=== PATIENT | female | born 1965 | race Caucasian/White ===

== ENCOUNTER 2018-06-17 01:30 | Emergency (ER) | payer OTHER, SELFPAY ==
[2018-06-17 01:32] VITALS: BP 141/95; PULSE 115; RESP 22; TEMP 36.4; O2SAT 95; BMI 24.5
--- NOTE | 2018-06-17 01:33 | CT_ITS ---
STUDY: CT FACIAL BONES WITHOUT CONTRAST REASON FOR EXAM: Female, 53 years old. Patient fell. Laceration of the nose. RADIATION DOSAGE (If Supplied By Facility): CTDIvol = ( 29.38 ) mGy, DLP = ( 562.15 ) mGycm TECHNIQUE: The patient was scanned in a multi detector CT scanner. Sagittal and coronal images were reconstructed. Individualized dose optimization techniques were used for this CT. COMPARISON: None. FINDINGS: The nasal septum is midline. The frontal processes of the maxilla are intact. The nasal bones are normal. The zygomatic arches, pterygoid plates and mandibles are normal. The temporomandibular joints are normal The orbits are normal. There is a left-sided florence bullosa. Retention cyst in the right maxillary sinus. The soft tissues of the face are normal. . CT/Sinus/Facial Bone IMPRESSION: A small retention cyst in the right maxillary sinus. A left-sided florence bullosa. No acute fractures of the facial bones. The nasal bones in particular are not fractured Electronically Signed: Renard Randolph MD at 2:08 EDT Tel , Service support ,
[2018-06-17] MEDS: Diphth,Pertuss(Acell),Tet Vac 0.5 ML Vial IM (01:55)
--- NOTE | 2018-06-17 02:57 | ED.DCSUM_ITS ---
- ER Visit Summary Date of Service: 06/17/18 Chief Complaint: Nose injury History of Present Illness: The patient is a 53 F who presents with a nasal injury. She tripped and fell in the garage. She had a mango in a garage. She injured her nose. Her tetanus is unknown. Physical Examination: Vital signs reviewed. HEENT exam reveals a complete a avulsion of the tip of the nose. It is hanging by just the skin of the septum. There is also a 1 cm V-shaped laceration at the bridge of the nose. Nasal area is slightly tender. Her pupils are equal round and reactive to light. Her neck is nontender. Her neurologic exam is normal. She does appear to be slightly intoxicated with alcohol. Test Results: CT scan of the face reveals no fractures Emergency Department Course and Treatment: Patient had a laceration repair of these areas. The V-shaped laceration was repaired with 3 6-0 sutures. The tip of the nose was attached to its anatomic position using 9 6-0 sutures. There is still appear to be some blood flow to this area. The patient and her family were informed that the tip of the nose may not receive blood flow and that this may not be viable. The patient will need to be followed up with plastic virgen rgery. I will give her Dr. Grant has a follow-up. She will ice this area and will follow-up as described Treatment Plan: [] Disposition: Discharge Impression: Nasal tip avulsion, nasal laceration, laceration repair by ED physician This note was generated with [employer] dictation software. It may contain incorrect words, spelling, and punctuation that were not noted in review of the chart prior to signing ED Disposition - Plan for ED Patient: Chief Complaint: Fall Referrals: Denise Renee MD [Primary Care Provider] -
--- NOTE | 2018-06-17 02:57 | ED.DEP ---
ED Disposition - Plan for ED Patient: Disposition: Home or Assisted Living Chief Complaint: Fall Instructions: ED Mechanical Fall, ED Laceration All Referrals: Denise Renee MD [Primary Care Provider] - David Grant MD [STAFF PHYSICIAN] -
== END 2018-06-17 03:12 | disposition home or self-care (01) ==
PROVIDERS: Emergency Provider Emergency Medicine; Family Provider Family Medicine; PCP Family Medicine
DX: S01.20XA Unspecified open wound of nose, initial encounter (principal); S01.21XA Laceration without foreign body of nose, initial encounter; W01.0XXA Fall on same level from slipping, tripping and stumbling without subsequent striking against object, initial encounter; Y93.9 Activity, unspecified; Y92.008 Other place in unspecified non-institutional (private) residence as the place of occurrence of the external cause
CPT/HCPCS: 12011; 70486; 90471; 90715; 99283

== ENCOUNTER 2018-10-07 13:28 | Emergency (ER) | payer OTHER, SELFPAY ==
[2018-10-07 13:29] VITALS: BP 164/96; PULSE 106; RESP 16; TEMP 36.7; O2SAT 97; BMI 23.3
--- NOTE | 2018-10-07 13:43 | EKG12_ITS ---
Test Reason : CHEST/OTHERR Blood Pressure : / mmHG Vent. Rate : 077 BPM Atrial Rate : 077 BPM P-R Int : 124 ms QRS Dur : 078 ms QT Int : 374 ms P-R-T Axes : 003 027 016 degrees QTc Int : 423 ms Normal sinus rhythm Normal ECG Confirmed by BRIA CHOI, JOSEFA ([id number]), technical editor NIRALI MCKINNON ([id number]) on 10/09/2018 9:21:37 AM Referred By: SARAH Confirmed By:JOSEFA FRASER MD
--- NOTE | 2018-10-07 13:43 | CT_ITS ---
STUDY: CTA CHEST REASON FOR EXAM: Female, 53 years old. Right-sided chest wall pain for 2 days RADIATION DOSAGE (If Supplied By Facility): CTDIvol = ( 8.67 ) mGy, DLP = ( 342.88 ) mGycm TECHNIQUE: The examination was performed with the intravenous administration of 100 ml of Isovue 370 contrast material. Post-processing of the angiographic images was performed, with multiplanar reformation and 3D reconstruction. Individualized dose optimization techniques were used for this CT. COMPARISON: None. FINDINGS: There is limited enhancement of the main pulmonary artery and right and left pulmonary arteries. There is limited enhancement of the bilateral peripheral pulmonary arteries. There is no demonstrated pulmonary embolism. Normal thoracic aorta and visualized great vessels. There is no demonstrated aortic dissection. Normal heart and pericardium. Normal mediastinum. Normal hilar regions. Normal visualized trachea and bronchi. The lungs are well expanded. Normal pulmonary parenchyma. Normal pleura. Normal chest wall structures. Normal osseous structures. Normal visualized upper abdomen. CT/CTA Chest W/WO Contrast IMPRESSION: 1. Limited due to suboptimal pulmonary artery enhancement. No obvious pulmonary embolism is seen. Electronically Signed: Mynor Kinney MD at 15:21 EST , Service support ,
--- NOTE | 2018-10-07 13:46 | NURSING ---
NO OLD EKGS
--- NOTE | 2018-10-07 14:00 | ED.VISSUMM ---
- ER Visit Summary Date of Service: 10/07/18 Chief Complaint: Right-sided chest pain History of Present Illness: The patient is a 53 F presenting with right-sided chest pain. She states this started yesterday. It was intermittent yesterday. Today it has been more constant. Pain is worsened with taking deep breaths. She denies injury. Denies shortness of breath. Denies recent illness or cough. Denies fever. She tried Excedrin at home with no relief. She denies PE/DVT risk factors. Denies coronary disease risk factors. Physical Examination: Vitals are stable. Patient is afebrile. Alert no acute distress. HEENT exam is unremarkable. Neck is supple. Lungs are clear and equal bilaterally. Heart is regular rate and rhythm. Abdomen is soft nontender nondistended. Extremities are unremarkable. Skin is warm and dry. No rash No focal neurologic deficit. Remainder of exam is unremarkable. Emergency Department Course and Treatment: EKG is sinus rate of 77 with no acute ischemic changes. CBC, chemistries unremarkable other than creatinine 1.26. Troponin is negative. She was given IV fluids. CTA chest is obtained and is pending, this will be checked by the oncoming physician. Disposition: Pending Impression: Right-sided chest pain This note was generated with [employer] dictation software. It may contain incorrect words, spelling, and punctuation that were not noted in review of the chart prior to signing ED Disposition - Plan for ED Patient: Referrals: Denise Renee MD [Primary Care Provider] -
[2018-10-07 14:15] LABS: Absolute Lymphocyte Count 1.61 X10^3/ul (0.83-4.51); Absolute Neutrophil Count 4.8 X10^3/uL (2.0-7.7); Basophil# 0.03 X10^3/uL; Basophil% 0.4 % (0-1); Eosinophil# 0.15 X10^3/uL; Eosinophils% 2.1 % (0-5); Hematocrit 40.8 % (37-47); Hemoglobin 13.7 g/dl (12.0-15.0); Lymphocyte # 1.61 X10^3/ul (4.0); Lymphocyte % 22.7 % (19-41); Mean Corp Hgb Conc 33.6 g/gl (32-36); Mean Corpuscular Hgb 32.5 pg (27.0-32.0); Mean Corpuscular Volume 96.9 fL (81-99); Mean Platelet Vol. 10.4 fl (6.2-12.0); Monocyte# 0.46 X10^3/uL; Monocyte% 6.5 % (0-10); Neutrophil # 4.83 X10^3/uL (2.7-7.7); Neutrophil % 68.2 % (47-70); Platelet Count 224 K/mm3 (150-450); RBC Distribution Width CV 12.4 % (11.6-14.6); RBC Distribution Width SD 42.9 fl (35.1-43.9); Red Blood Count 4.21 M/mm3 (4.2-5.4); White Blood Count 7.1 K/mm3 (4.4-11.0)
[2018-10-07 14:16] LABS: POSITIVE COUNT NO; POSITIVE DIFFERENTIAL NO; POSITIVE MORPHOLOGY NO
[2018-10-07 14:34] LABS: Anion Gap 9 (5-15); BUN 13 mg/dL (7-18); BUN/Creat Ratio 10.3 RATIO (10-20); Calcium,Total 8.8 mg/dL (8.5-10.1); Chloride 106 mmol/L (98-107); Creatinine, Serum 1.26 mg/dL (0.55-1.02); EST Glomerular Filtration Rate 47 mL/min (>60); Est Glom Filt Rate - Afr Amer 57 mL/min (>60); Estimated Creatinine Clearance 47.53 ml/min; Glucose 127 mg/dL (74-106); Potassium 3.7 mmol/L (3.5-5.1); Sodium Level 143 mmol/L (136-145)
[2018-10-07] MEDS: 0.9% Normal Saline 1,000 ML 999 ML IV (15:11)
[2018-10-07 15:45] VITALS: BP 141/87; PULSE 69; RESP 11; O2SAT 98
--- NOTE | 2018-10-07 17:00 | EKG12_ITS ---
Test Reason : CP Blood Pressure : / mmHG Vent. Rate : 070 BPM Atrial Rate : 070 BPM P-R Int : 128 ms QRS Dur : 074 ms QT Int : 396 ms P-R-T Axes : 006 024 024 degrees QTc Int : 427 ms Normal sinus rhythm Normal ECG Confirmed by JOSEFA FRASER MD ([id number]), editor producer NIRALI MCKINNON ([id number]) on 10/09/2018 9:21:55 AM Referred By: ADAM Confirmed By:JOSEFA FRASER MD
[2018-10-07 17:04] VITALS: BP 124/91; PULSE 72; RESP 13; O2SAT 96
--- NOTE | 2018-10-07 18:07 | ED.DEP ---
ED Disposition - Plan for ED Patient: Disposition: Home or Assisted Living Instructions: ED Chest Pain Atypical Unkn Cause Referrals: Denise Renee MD [Primary Care Provider] - 3-5 Days if not improving
[2018-10-07 18:34] VITALS: BP 128/82; PULSE 72; RESP 13; O2SAT 95
== END 2018-10-07 18:36 | disposition home or self-care (01) ==
PROVIDERS: Emergency Provider Emergency Medicine; Family Provider Family Medicine; PCP Family Medicine
DX: R07.89 Other chest pain (principal); Z72.0 Tobacco use
CPT/HCPCS: 71275; 80048; 84484; 85025; 93005; 96360; 96361; 99283; J7030; Q9967; A4216

== ENCOUNTER 2018-12-30 13:35 | Emergency (ER) | payer OTHER, SELFPAY ==
[2018-10-26 13:14] VITALS: BMI 23.3
[2018-12-30 13:36] VITALS: BP 130/86; PULSE 90; RESP 16; TEMP 36; O2SAT 97; BMI 24.1
--- NOTE | 2018-12-30 14:12 | RAD_ITS ---
STUDY: X-RAY - LEFT KNEE REASON FOR EXAM: Female, 53 years old. Pain TECHNIQUE: 4 view(s) of the knee. COMPARISON: None. FINDINGS: There is no evidence of fracture or dislocation. There are no significant degenerative changes. There are no radiodense foreign bodies. RAD/Knee 4 or More Views IMPRESSION: No fracture or dislocation. Electronically Signed: Wilton Middleton, at 14:50 EDT Tel , Service support ,
--- NOTE | 2018-12-30 14:15 | ED.DCSUM_ITS ---
- ER Visit Summary Date of Service: 12/30/18 Chief Complaint: Left knee injury History of Present Illness: The patient is a 53 F presenting with left knee injury. This occurred last night. Patient states she stepped in a hole and twisted her left knee. She did not hit her head or lose consciousness. She complains of left knee pain today. She has an abrasion to her left thumb. Her tetanus is up-to-date. No other injuries. She tried a leftover Vicodin last night for pain. Physical Examination: Vitals are stable. Patient is afebrile. Alert no acute distress. HEENT exam is unremarkable. Neck is nontender Lungs are clear and equal bilaterally. Heart is regular rate and rhythm. Abdomen is soft nontender nondistended. Extremities left medial knee tenderness with painful range of motion. Extensor mechanism intact. Normal distal pulses. Mild abrasion distal left thumb Skin is warm and dry. No focal neurologic deficit. Remainder of exam is unremarkable. Emergency Department Course and Treatment: Patient was given [place] x1. Left knee x-ray shows no acute process. Patient is advised to ice and elevate. She has crutches that she will use. She is advised to follow-up with her primary care physician. Advised return to ED for worsening complaints. Disposition: Discharge home Impression: Left knee sprain status post fall This note was generated with [employer] dictation software. It may contain incorrect words, spelling, and punctuation that were not noted in review of the chart prior to signing ED Disposition - Plan for ED Patient: Instructions: ED Sprain Knee Prescriptions: Hydrocodone Bitart/Apap 5-325 [[place] 5MG-325MG] 1 tablet PO Q6H PRN PRN 3 Days #6 tablet PRN Reason: Pain Referrals: Denise Renee MD [Primary Care Provider] -
[2018-12-30] MEDS: HYDROcodone Bitartrate/Apap 5/325 Tablet PO (14:29)
--- NOTE | 2018-12-30 15:11 | ED.DEP ---
ED Disposition - Plan for ED Patient: Instructions: ED Sprain Knee Prescriptions: Hydrocodone Bitart/Apap 5-325 [[place] 5MG-325MG] 1 tablet PO Q6H PRN PRN 3 Days #6 tablet PRN Reason: Pain Referrals: Denise Renee MD [Primary Care Provider] -
== END 2018-12-30 15:13 | disposition home or self-care (01) ==
LOC: ED 14:23
PROVIDERS: Emergency Provider Emergency Medicine; Family Provider Family Medicine; PCP Family Medicine
DX: S83.92XA Sprain of unspecified site of left knee, initial encounter (principal); X50.1XXA Overexertion from prolonged static or awkward postures, initial encounter; Y93.9 Activity, unspecified; Y92.9 Unspecified place or not applicable
CPT/HCPCS: 73564; 99283

== ENCOUNTER → 2019-01-07 15:21 | Outpatient (CLI) | payer OTHER, SELFPAY ==
[2018-12-30 13:36] VITALS: BMI 24.1
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
== END ==
PROVIDERS: Family Provider Family Medicine; PCP Family Medicine; Referring Provider Nurse Practitioner Family; Visit Provider Nurse Practitioner Family
DX: M25.511 Pain in right shoulder (principal)
CPT/HCPCS: 73030

== ENCOUNTER → 2019-04-08 13:14 | Outpatient (CLI) | payer OTHER, SELFPAY ==
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
== END ==
PROVIDERS: Family Provider Family Medicine; PCP Family Medicine; Referring Provider Orthopaedic Surgery; Visit Provider Orthopaedic Surgery
DX: S83.412A Sprain of medial collateral ligament of left knee, initial encounter (principal)
CPT/HCPCS: 73721

== ENCOUNTER → 2019-06-19 15:24 | Outpatient (CLI) | payer OTHER, SELFPAY ==
--- NOTE | 2019-06-19 15:27 | MRI_ITS ---
STUDY: MRI RIGHT SHOULDER REASON FOR EXAM: Female, 54 years old. Pain. Osteoarthritis. TECHNIQUE: Standardized fat and water weighted pulse sequences were obtained in all 3 orthogonal planes. COMPARISON: None. FINDINGS: There is supraspinatus tendinosis with tendon thickening, with partial intrasubstance tendon tear, series 5 images 08/09 and 1320. Tendinosis of the infraspinatus with partial bursal surface distal tendon tear, series 4 image 1020. Normal subscapularis tendon. Normal teres minor tendon. Normal supraspinatus muscle. Normal infraspinatus muscle. Normal subscapularis muscle. Normal teres minor muscle. Normal glenohumeral articulation. Normal humeral head and visualized proximal humerus. Normal biceps labral complex. Normal intracapsular long biceps tendon. Normal labrum. Normal capsulo- ligamentous complex. Normal rotator interval. There is hypertrophic osteoarthritis of the acromioclavicular articulation with impingement upon the musculotendinous junction of the supraspinatus muscle. There is a Type II morphology (curved), with a neutral orientation. There is moderate fluid distention of the subacromial bursa, consistent with moderate subacromial-subdeltoid bursitis. Normal visualized coracohumeral and coracoacromial ligaments. Normal quadrilateral space. Normal axillary space. Normal deltoid muscle. Normal trapezius muscle. MRI/Upper Ext Joint Only(Routine) IMPRESSION: Tendinosis with partial tear of the supraspinatus and infraspinatus. No full-thickness rotator cuff tear. Acromioclavicular spurring with impingement. Subacromial subdeltoid bursitis. Electronically Signed: Chon Frost MD at 16:51 EDT , Service support ,
== END ==
PROVIDERS: Family Provider Family Medicine; PCP Family Medicine; Referring Provider Physician Assistant; Visit Provider Physician Assistant
DX: M19.011 Primary osteoarthritis, right shoulder (principal)
CPT/HCPCS: 73221

== ENCOUNTER → 2020-05-08 12:08 | Outpatient (CLI) | payer OTHER, SELFPAY ==
--- NOTE | 2020-05-08 12:20 | BI_ITS ---
MAMMOGRAPHY - BILATERAL SCREENING REASON FOR EXAM: Female, 55 years old. Routine annual screening examination. PERTINENT HISTORY: Non-contributory. Remote right stereotactic breast biopsy. TECHNIQUE: Digital bilateral breast jerrell (3D mammographic acquisition) in the CC and MLO projections. 2-D mediolateral oblique (MLO) and craniocaudad (CC) views of both breasts were obtained. CAD: Full Field Digital Mammography with Computer Added Detection was performed. COMPARISON: Comparison is made with prior study dated 05/30/2013 and 03/29/2017. FINDINGS: Breast Composition: The breasts are heterogeneously dense, which may obscure small masses. There are no dominant masses or suspicious calcifications. A tissue clip marker is once again seen in the upper central portion of the right breast. No other significant abnormalities are identified. There has been no significant change since the prior study. BI/SCREEN MAMM (CAD) W/JERRELL BILAT IMPRESSION: Stable bilateral screening mammogram. Yearly follow-up mammogram recommended. (A) ASSESSMENT CATEGORY: BIRADS Category 2: Benign. A letter regarding these results will be sent to the patient by the facility within 30 days. Approximately 10% of breast cancers are not detected by mammography. A normal mammogram should not delay biopsy of a clinically suspicious abnormality. [id number] Electronically Signed: Geovanni Arias, at 13:25 EDT , Service support ,
== END ==
PROVIDERS: PCP Family Medicine; Referring Provider Family Medicine; Visit Provider Family Medicine
DX: Z12.31 Encounter for screening mammogram for malignant neoplasm of breast (principal)
CPT/HCPCS: 77063; 77067

== ENCOUNTER → 2020-06-22 14:52 | Outpatient (CLI) | payer OTHER, SELFPAY ==
[2020-06-29 16:47] LABS: HPV APTIMA, High Risk Negative (Negative); HPV Reflexed? YES, CHARGE PATIENT
== END ==
PROVIDERS: PCP Family Medicine; Visit Provider Student in an Organized Health Care Education/Training Program
DX: Z12.4 Encounter for screening for malignant neoplasm of cervix (principal)
CPT/HCPCS: 87624; 88175; G0145

== ENCOUNTER 2020-10-15 15:28 | Emergency (ER) | payer OTHER, SELFPAY ==
[2020-10-15 15:28] VITALS: BP 130/92; PULSE 78; RESP 16; TEMP 36.6; O2SAT 98; BMI 26.1
--- NOTE | 2020-10-15 15:50 | ED.VIS.FALL ---
History of Present Illness Chief Complaint: Fall Informant: Patient Occurred: Yesterday Mechanism/Context: Trip - Over dog backwards into edge of kitchen counter at home Location: Right side/ribs Quality of Pain: Aching Current Severity: Moderate Maximum Severity: Moderate Worsened by: Movement, palpation, deep inspiration Relieved by: Remaining still and breathing easy Associated Symptoms: - - Normal urination without hematuria. Negative for: Parasthesias, Weakness, Loss of function, Inability to ambulate, Loss of consciousness, Amnesia Narrative: Patient injured her ribs as above accidentally last night. Pain is persistent and worse today. She denies any yadira dyspnea or any other injuries. Takes no anticoagulants. Took some ibuprofen earlier with little relief. - Past Medical History (1) Anxiety Status: Chronic (2) Depression Status: Chronic Past Medical History - Allergies and Home Meds Allergies/Adverse Reactions: Allergies No Known Allergies Allergy (Verified 10/15/20 15:31) Primary Care Physician: Denise Renee MD [Primary Care Provider] - As Needed Lives: Spouse/ Significant Other Smoking Status: Current every day smoker Review of Systems General: Denies: Chills, Fever, Sweats Eyes: Denies: Visual changes - bilaterally, Diplopia ENT: Denies: Rhinorrhea, Sore throat Cardiovascular: Reports: Chest pain - Ribs right side and back. Denies: Palpitations Respiratory: Denies: Dyspnea, Cough, Dyspnea on exertion Gastrointestinal: Denies: Abdominal pain, Nausea, Vomiting, Diarrhea, Melena, Hematochezia Genitourinary: Denies: Dysuria, Hematuria, Frequency Musculoskeletal: Reports: Back pain - Right lateral lower ribs only. Denies: Swelling, Extremity Pain Skin: Denies: Rash, Wounds Neurological: Denies: Headache, Weakness, Numbness Physical Exam Vital Signs/Narrative: Vital Signs Temp Pulse Resp BP Pulse Ox 10/15/20 15:28 98 F 78 16 130/92 H 98 Inital Vital Signs reviewed: Yes General: Well nourished, Well developed, - - Well-appearing in no distress, conversive in full sentences Head: Normocephalic, Atraumatic Eyes: Perrl, EOMI Neck: Nontender, Full ROM Respiratory: No distress, CTA bilaterally, Chest nontender - Including sternum Abdomen: Soft, Nontender, Nondistended, Normal bowel sounds Back: Paraspinal Tenderness - Right posterior and lateral ribs approximately 9-11 without crepitance, subcutaneous emphysema, or flail segment. Negative for: Spinal Tenderness Extremeties: Atraumatic, full range of motion throughout all extremities Skin: Normal color, No rash, No Trauma Neurological: Alert, Oriented x3, Cranial nerves II-XII grossly intact, Normal Strength, Normal Sensation, Normal Gait Psychological: Normal affect, Normal Mood Diagnostic/Tx/Re-eval Clinical Impression(s) from Imaging Studies Ribs w/Chest X-Ray 10/15/20 16:05 IMPRESSION: RIBS: Normal x-ray examination of the ribs. CHEST: Degenerative changes, as described above. No demonstrated acute cardiopulmonary process. Electronically Signed: Hermilo Garcia MD at 16:35 EST , Service support , - Medical Decision Making On my interpretation, 3 view x-ray series of the right ribs and chest show a single nondisplaced rib fracture of #11 without pneumothorax. Patient was given analgesics here as well as a prescription, and appropriate discharge instructions advised not to wrap or bind her chest. I will request nursing to give her an incentive spirometer in addition to the prescription. Follow-up as needed or return if worse. ED Disposition - Plan for ED Patient: Disposition: Home or Assisted Living Diagnosis: Closed fracture of rib of right side Instructions: ED Rib Fracture Prescriptions: traMADol [Ultram] 50 mg PO Q4H PRN PRN 3 Days #18 tab PRN Reason: Pain Transmission Status: Received by [facility] Referrals: Denise Renee MD [Primary Care Provider] - As Needed
[2020-10-15] MEDS: traMADol 50 MG Tablet PO (15:55)
--- NOTE | 2020-10-15 16:05 | RAD_ITS ---
STUDY: X-RAY - UNILATERAL RIBS ( RIGHT ) WITH CHEST REASON FOR EXAM: Female, 55 years old. injury TECHNIQUE - RIBS: 2 view(s) of the ribs. TECHNIQUE - CHEST: Single AP portable view of the chest. COMPARISON: None. FINDINGS - RIBS: Normal visualized ribs without a demonstrated fracture. FINDINGS - CHEST: The lungs are clear and expanded. There is no demonstrated pleural abnormality. Normal size heart. Normal mediastinum and jenny. Normal visualized pulmonary arteries. There is atherosclerotic calcification of the aortic arch with tortuosity. There are diffuse degenerative changes of the visualized thoracic spine. Normal visualized ribs, clavicles, and shoulders. There is no demonstrated abnormality of the visualized soft tissue structures of the upper abdomen. RAD/Ribs Uni Min 3V w/PA Chest IMPRESSION: RIBS: Normal x-ray examination of the ribs. CHEST: Degenerative changes, as described above. No demonstrated acute cardiopulmonary process. Electronically Signed: Hermilo Garcia MD at 16:35 EST , Service support ,
[2020-10-15 16:19] VITALS: PULSE 64; RESP 16; O2SAT 97
== END 2020-10-15 16:32 | disposition home or self-care (01) ==
LOC: ED 16:30
PROVIDERS: Emergency Provider Emergency Medicine; PCP Family Medicine
DX: S22.31XA Fracture of one rib, right side, initial encounter for closed fracture (principal); F17.200 Nicotine dependence, unspecified, uncomplicated; F41.9 Anxiety disorder, unspecified; F32.9 Major depressive disorder, single episode, unspecified; W01.0XXA Fall on same level from slipping, tripping and stumbling without subsequent striking against object, initial encounter
CPT/HCPCS: 71101; 99283

== ENCOUNTER 2020-10-18 11:41 | Emergency (ER) | payer OTHER, SELFPAY ==
[2020-10-18 11:42] VITALS: BP 122/79; PULSE 93; RESP 16; TEMP 36.4; O2SAT 99; BMI 26.5
--- NOTE | 2020-10-18 12:08 | ED.DCSUM_ITS ---
- ER Visit Summary Date of Service: 10/18/20 Chief Complaint: Right rib pain History of Present Illness: The patient is a 55 F who presents with right rib pain that became worse yesterday. Patient states she fell 4 days ago and was seen here at that time. Patient had x-rays done which were negative. Patient was given a prescription for tramadol. Patient states that yesterday she felt a pop in her right rib and her pain became worse again. Patient states the tramadol has not been helping. Patient states her pain is constant aching but sharp with movement. Patient states the pain is better with rest. Patient denies any shortness of breath. Physical Examination: Vital signs are stable. Patient is afebrile. Patient is in no acute distress. Oral mucosa is pink and moist. Neck is supple. Trachea is midline. There is no JVD. Heart was regular rate and rhythm. Lungs are clear and equal bilateral. There is adequate respiratory effort. It was limited due to the pain. Abdomen is soft. Bowel sounds are normal. There is no tenderness. Cranial nerves II through XII are intact. There are no focal motor or sensory deficits noted. Extremities are intact. There is no calf tenderness or edema. Test Results: X-rays of the right ribs were obtained. There are 4 views. On my interpretation, there is no acute fracture. There is no pneumothorax. There is no cardiomegaly. There is no acute cardiopulmonary process. Radiologist also interpreted the x-rays and agrees. Emergency Department Course and Treatment: Patient was given an injection of morphine here. Patient was given a prescription for a short course of [place]. Patient was instructed to take 10-15 deep breaths every hour while awake to prevent atelectasis and pneumonia. Patient was instructed to follow-up with her primary care physician in 5 to 7 days. Patient understood and was agreeable with the plan. All questions were answered. Disposition: Discharge home Impression: Right rib contusion This note was generated with [employer] dictation software. It may contain incorrect words, spelling, and punctuation that were not noted in review of the chart prior to signing ED Disposition - Plan for ED Patient: Disposition: Home or Assisted Living Diagnosis: Contusion of rib on right side Instructions: ED Contusion, Rib Prescriptions: Hydrocodone Bitart/Apap 5-325 [[place] 5MG-325MG] 1 tab PO Q6H PRN PRN 3 Days #10 tab PRN Reason: Pain Prescription Printed Referrals: Denise Renee MD [Primary Care Provider] - 3-5 Days
[2020-10-18] MEDS: Morphine 4 MG/ML Syringe IM (12:25)
--- NOTE | 2020-10-18 12:30 | RAD_ITS ---
STUDY: X-RAY - UNILATERAL RIBS ( RIGHT ) WITH CHEST REASON FOR EXAM: Female, 55 years old. Pain TECHNIQUE - RIBS: 3 view(s) of the ribs. TECHNIQUE - CHEST: Single PA view of the chest. COMPARISON: 10/15/2020 FINDINGS - RIBS: Normal visualized ribs without a demonstrated fracture. FINDINGS - CHEST: The lungs are clear and expanded. There is no demonstrated pleural abnormality. Normal size heart. Normal mediastinum and jenny. Normal visualized pulmonary arteries. Normal visualized aortic arch and descending thoracic aorta. Normal visualized thoracic spine. Normal visualized ribs, clavicles, and shoulders. There is no demonstrated abnormality of the visualized soft tissue structures of the upper abdomen. RAD/Ribs Uni Min 3V w/PA Chest IMPRESSION: RIBS: Normal x-ray examination of the ribs. CHEST: Normal x-ray examination of the chest. Electronically Signed: Low Ramsey MD at 13:14 EST Tel , Service support ,
== END 2020-10-18 13:33 | disposition home or self-care (01) ==
PROVIDERS: Emergency Provider Emergency Medicine; PCP Family Medicine
DX: S20.211A Contusion of right front wall of thorax, initial encounter (principal); F17.200 Nicotine dependence, unspecified, uncomplicated; F41.9 Anxiety disorder, unspecified; F32.9 Major depressive disorder, single episode, unspecified; W19.XXXA Unspecified fall, initial encounter
CPT/HCPCS: 71101; 96372; 99282

== ENCOUNTER → 2021-05-10 09:02 | Outpatient (CLI) | payer OTHER, SELFPAY | PROVIDERS: PCP Family Medicine; Referring Provider Family Medicine; Visit Provider Family Medicine | DX: R68.89 Other general symptoms and signs (principal) | CPT/HCPCS: 87635; U0003 ==

== ENCOUNTER → 2021-05-10 17:09 | Outpatient (CLI) | payer OTHER, SELFPAY ==
--- NOTE | 2021-05-10 17:12 | RAD_ITS ---
STUDY: X-RAY CHEST REASON FOR EXAM: Female, 56 years old. FLU LIKE ILLNESS TECHNIQUE: PA and lateral views of the chest. COMPARISON: None. FINDINGS: The lungs are clear and expanded. There is no demonstrated pleural abnormality. Normal size heart. Normal mediastinum and jenny. Normal visualized pulmonary arteries. Normal visualized aortic arch and descending thoracic aorta. There are diffuse degenerative changes of the visualized thoracic spine. Normal visualized ribs, clavicles, and shoulders. There is no demonstrated abnormality of the visualized soft tissue structures of the upper abdomen. RAD/Chest PA and Lateral IMPRESSION: No acute cardiopulmonary disease. Electronically Signed: Emerald Rothman MD at 2:11 EDT , Service support ,
== END ==
PROVIDERS: PCP Family Medicine; Referring Provider Family Medicine; Visit Provider Family Medicine
DX: R68.89 Other general symptoms and signs (principal)
CPT/HCPCS: 71046

== ENCOUNTER → 2021-05-17 13:44 | Outpatient (CLI) | payer OTHER, SELFPAY ==
[2021-05-17 15:09] LABS: Absolute Lymphocyte Count 2.22 X10^3/uL (0.83-4.51); Absolute Neutrophil Count 3.9 X10^3/uL (2.0-7.7); Basophil# 0.05 X10^3/uL; Basophil% 0.7 % (0-1); Eosinophil# 0.34 X10^3/uL; Eosinophils% 4.9 % (0-5); Hematocrit 42.2 % (37-47); Hemoglobin 13.6 g/dL (12.0-15.0); Lymphocyte # 2.22 X10^3/ul (0.83-4.51); Lymphocyte % 32.1 % (19-41); Mean Corp Hgb Conc 32.2 g/dL (32-36); Mean Corpuscular Hgb 31.1 pg (27.0-32.0); Mean Corpuscular Volume 96.6 fL (81-99); Mean Platelet Vol. 10.3 fl (6.2-12.0); Monocyte# 0.41 X10^3/uL; Monocyte% 5.9 % (0-10); NRBC Flagged by Analyzer 0 % (0-5); Neutrophil # 3.87 X10^3/uL (2.7-7.7); Neutrophil % 56.1 % (47-70); Platelet Count 309 K/mm3 (150-450); RBC Distribution Width CV 12.4 % (11.6-14.6); RBC Distribution Width SD 44.1 fl (35.1-43.9); Red Blood Count 4.37 M/mm3 (4.2-5.4); White Blood Count 6.9 K/mm3 (4.4-11.0)
== END ==
PROVIDERS: PCP Family Medicine; Referring Provider Family Medicine; Visit Provider Family Medicine
DX: R53.83 Other fatigue (principal)
CPT/HCPCS: 36415; 84443; 85025

== ENCOUNTER → 2021-06-23 13:50 | Outpatient (CLI) | payer OTHER, SELFPAY ==
--- NOTE | 2021-06-23 13:52 | ECHOD_ITS ---
Reason For Study: Tachycardia Procedure This was a 2D Doppler, Color Flow transthoracic echocardiogram. The exam was of adequate technical quality. Exam performed in department. Left Ventricle Normal LV size. Left ventricular systolic function is normal. The estimated ejection fraction is 55 %. Transmitral doppler flow suggestive of impaired relaxation of left ventricle. No regional wall motion abnormalities noted. Right Ventricle Normal RV size. Normal systolic function. Atria Normal left atrium. Normal right atrium. No doppler evidence for ASD. Mitral Valve There is no mitral annular calcification. Normal mitral valve. Mild (1+) mitral valve insufficiency. Tricuspid Valve Normal tricuspid valve. Trivial tricuspid valve insufficiency. Unable to estimate RV systolic pressure due to insufficient tricuspid regurgitant envelope. Aortic Valve Trisinus/trileaflet aortic valve. Mild focal aortic valve calcification. Pulmonic Valve The pulmonic valve is not well visualized. Trivial pulmonic valve insufficiency. Great Vessels Normal sized aortic root. Pericardium/Pleural No pericardial effusion. MMode/2D Measurements & Calculations LVIDd: 3.7 cm IVSd: 1.1 cm Ao root diam: 3.5 cm LVIDs: 2.3 cm LVPWd: 0.88 cm LA dimension: 3.0 cm FS: 37.4 % LAV(MOD-bp): 26.0 ml LA A4 area: 10.5 cm2 RA A4 area: 9.6 cm2 LAV(MOD-bp) Indexed: 15.0 ml/m2 LAV(MOD-sp2): 32.7 ml LAV(MOD-sp4): 20.2 ml Time Measurements MV dec time: 0.26 sec Doppler Measurements & Calculations MV E max jd: 74.4 cm/sec Lat Peak E' Jd: 9.6 cm/sec Med Peak E' Jd: 8.8 cm/sec MV A max jd: 92.9 cm/sec E/E' lat: 7.8 E/E' med: 8.5 MV E/A: 0.80 MV V2 max: 93.8 cm/sec MV P1/2t max jd: 65.8 cm/sec Ao V2 max: 119.3 cm/sec MV max P.5 mmHg MV P1/2t: 112.7 msec Ao max P.7 mmHg MV V2 mean: 48.3 cm/sec MV dec slope: 171.0 cm/sec2 MV mean P.1 mmHg MVA(P1/2t): 2.0 cm2 MV V2 VTI: 23.7 cm LV V1 max: 102.3 cm/sec PA V2 max: 84.7 cm/sec LV V1 max P.2 mmHg ECHO/Echo Complete Interpretation Summary Left ventricular systolic function is normal. The estimated ejection fraction is 55 %. Mild (1+) mitral valve insufficiency. Trivial tricuspid valve insufficiency. Mild focal aortic valve calcification. Trivial pulmonic valve insufficiency. Unable to estimate RV systolic pressure due to insufficient tricuspid regurgita nt envelope. Transmitral doppler flow suggestive of impaired relaxation of left ventricle Ordering Physician: Denise Renee Referring Physician: Denise Renee Performed By: Camron Colindres RCS
== END ==
PROVIDERS: PCP Family Medicine; Referring Provider Family Medicine; Visit Provider Family Medicine
DX: R00.0 Tachycardia, unspecified (principal)
CPT/HCPCS: 93306

== ENCOUNTER 2021-11-25 13:19 | Outpatient (CLI) | payer OTHER, SELFPAY ==
--- NOTE | 2021-11-25 13:23 | BI_ITS ---
MAMMOGRAPHY - BILATERAL SCREENING REASON FOR EXAM: Female, 56 years old. Routine annual screening examination. PERTINENT HISTORY: Non-contributory. Prior right stereotactic breast biopsy and left ultrasound-guided breast biopsy. TECHNIQUE: Digital bilateral breast jerrell (3D mammographic acquisition) in the CC and MLO projections. 2-D mediolateral oblique (MLO) and craniocaudad (CC) views of both breasts were obtained. CAD: Full Field Digital Mammography with Computer Added Detection was performed. COMPARISON: Comparison is made with prior study dated 05/08/2020 and 03/29/2017. FINDINGS: Breast Composition: The breasts are heterogeneously dense, which may obscure small masses. There are no dominant masses or suspicious calcifications. A tissue clip marker is once again seen in the upper central portion of the right No other significant abnormalities are identified. There has been no significant change since the prior study. BI/SCRN MAMM (CAD)W/JERRELL BILAT IMPRESSION: Stable bilateral screening mammogram. Yearly follow-up mammogram recommended. (A) ASSESSMENT CATEGORY: BIRADS Category 2: Benign. A letter regarding these results will be sent to the patient by the facility within 30 days. Approximately 10% of breast cancers are not detected by mammography. A normal mammogram should not delay biopsy of a clinically suspicious abnormality. [id number] Electronically Signed: Geovanni Arias MD at 14:59 EDT ,
== END 2021-11-25 23:59 | disposition home or self-care (01) ==
LOC: OPBI 13:19
PROVIDERS: PCP Family Medicine; Referring Provider Student in an Organized Health Care Education/Training Program; Visit Provider Student in an Organized Health Care Education/Training Program
DX: Z12.31 Encounter for screening mammogram for malignant neoplasm of breast (principal)
CPT/HCPCS: 77063; 77067

== ENCOUNTER → 2022-04-01 | Outpatient (CLI) | payer OTHER, SELFPAY ==
--- NOTE | 2022-04-01 13:48 | RAD_ITS ---
STUDY: X-RAY - RIGHT FOOT CLINICAL: Female, 57 years old. right foot pain TECHNIQUE: 3 view(s) of the foot. COMPARISON: None. FINDINGS: Normal talus, calcaneus, and tarsal bones. Moderate-sized plantar calcaneal enthesophyte. Os perineum. Normal visualized subtalar, talonavicular, calcaneocuboid, tarsal and tarsometatarsal articulations. Normal metatarsi. Normal metatarsophalangeal joint of the great toe. Normal tibial and fibular sesamoid bones. Normal interphalangeal joint of the great toe. Normal phalanges of the great toe. Normal second through fifth metatarsophalangeal joints. Normal interphalangeal joints and phalanges of the lesser toes. The soft tissue structures are unremarkable. RAD/Foot min 3 Views IMPRESSION: Normal x-ray examination of the foot. Electronically Signed: Low Ramsey MD at 14:47 EDT ,
== END | disposition home or self-care (01) ==
LOC: RAD 13:45
PROVIDERS: PCP Family Medicine; Referring Provider Physician Assistant Surgical; Visit Provider Physician Assistant Surgical
DX: S96.911A Strain of unspecified muscle and tendon at ankle and foot level, right foot, initial encounter (principal)
CPT/HCPCS: 73630

== ENCOUNTER → 2022-06-20 | Outpatient (CLI) | payer OTHER, SELFPAY ==
--- NOTE | 2022-06-20 14:43 | CT_ITS ---
STUDY: LOW DOSE CT LUNG CANCER SCREENING REASON FOR EXAM: Female, 57 years old. 1 pack per day smoker x46 years RADIATION DOSAGE (If Supplied By Facility): CTDIvol = ( 3.02 ) mGy, DLP = ( 96.66 ) mGycm TECHNIQUE: No contrast was administered. Low dose technique was utilized (average mAS-38 and kVp 120). 1.25 mm axial source images with a slice interval of 1.25-mm were reconstructed in lung windows. 2.5 mm axial source images with a slice interval of 2.5-mm were reconstructed in lung windows. 5.0 mm axial source images with a slice interval of 5.0-mm were reconstructed in soft tissue windows. COMPARISON: Previous chest x-rays FINDINGS: Lungs are expanded with chronic interstitial changes. No organized infiltrate, suspicious noncalcified mass or nodule. Nonspecific pleural thickening in both hemithoraces. Soft tissue windows show normal-appearing thyroid gland. No suspicious adenopathy. No pleural or pericardial effusions. No calcified coronary vessels noted. Bony structures show degenerative change. Limited cuts through the upper abdomen do not show a suspicious abnormality CT/Low Dose CT Lung Screening IMPRESSION: Lung-RADS category 2 - Continue annual screening with LDCT in 12 months. IMPORTANT NOTES FOR USE: ACR Lung-RADS Version 1.1 Assessment Categories Release Date: 2018 Category: Coded 0-4 bases on nodule(s) with highest degree of suspicion. Negative screen is defined as categories 1 and 2; a positive screen is defined as categories 3 and 4. Category 3 and 4A nodules that are unchanged on interval CT should be coded as category 2, and individuals returned to screening in 12 months. Category 4X: Category 3 or 4 nodules with additional imaging findings that increase the suspicion of lung cancer, such as spiculation, GGN that doubles in size in 1 year, enlarged lymph notes, etc. Category Modifiers: S (significant finding unrelated to lung cancer) Electronically Signed: Janes Villela MD at 9:50 EDT ,
== END | disposition home or self-care (01) ==
LOC: CT 14:42
PROVIDERS: PCP Family Medicine; Referring Provider Nurse Practitioner Family; Visit Provider Nurse Practitioner Family
DX: Z12.2 Encounter for screening for malignant neoplasm of respiratory organs (principal)
CPT/HCPCS: 71271

== ENCOUNTER 2023-02-18 10:36 | Emergency (ER) | payer OTHER, SELFPAY ==
[2023-02-18 10:37] VITALS: BP 185/100; PULSE 90; RESP 18; TEMP 36.4; O2SAT 98
--- NOTE | 2023-02-18 10:52 | RAD_ITS ---
INDICATION: injury EXAMINATION/TECHNIQUE: X-RAY - LEFT XR Calcaneus Min 2 Views 2 VIEWS COMPARISON: No prior examinations are available for comparison. FINDINGS: SOFT TISSUES: No soft tissue swelling or gas. No radiopaque foreign body. BONES/JOINTS: No acute fracture or subluxation.. Normal alignment. Preservation of the joint space.. Plantar calcaneal spur. RAD/Calcaneus min 2 Views IMPRESSION: Calcaneal spur. Electronically Signed: Michael Mabry MD at 11:58 EDT ,
--- NOTE | 2023-02-18 10:52 | RAD_ITS ---
INDICATION: injury EXAMINATION/TECHNIQUE: X-RAY - LEFT XR Foot Min 3 Views 3 VIEWS COMPARISON: No prior examinations are available for comparison. FINDINGS: SOFT TISSUES: No soft tissue swelling or gas. No radiopaque foreign body. BONES/JOINTS: No acute fracture or subluxation.. Calcific density lateral to the base of the first metatarsal could be due to old injury. Lucent line at the base of the third metatarsal and second cuneiform likely due to artifact and overlying shadows. It is not seen on the oblique view. Preservation of the joint space.. Plantar calcaneal spur. RAD/Foot min 3 Views IMPRESSION: No evidence of acute osseous injury as described above. Plantar calcaneal spur. Electronically Signed: Michael Mabry MD at 11:43 EDT ,
--- NOTE | 2023-02-18 10:53 | ED.VIS.LOWEX ---
HPI History of Present Illness Chief Complaint: Lower Extremity Injury Detail of Chief Complaint: Injury left foot Informant: patient Narrative Narrative: Patient presents with injury to her left foot that occurred last evening. Patient states that she was hopping over an eroded part of the road where her heel caught and foot twisted injuring her heel. Patient unable to bear weight afterwards. Patient is concerned it could be her Achilles tendon. [facility] Medical History (Updated 02/18/23 @ 11:[address] Daryl Pollard, DO) Depression Lateral epicondylitis Menorrhagia Myalgia Myositis Home Medications citalopram 20 mg tablet 40 mg PO QHS 01/26/15 [History Last Taken 10/06/18] ferrous sulfate 325 mg (65 mg iron) tablet 325 mg PO QHS 01/26/15 [History Last Taken 10/06/18] folic acid 800 mcg tablet 0.8 mg PO QHS 01/26/15 [History Last Taken 10/06/18] multivitamin with folic acid 400 mcg tablet 1 tab PO DAILY 01/26/15 [History Last Taken 10/06/18] ascorbic acid (vitamin C) 500 mg tablet 500 mg PO QHS 09/04/17 [History Last Taken 10/06/18] cholecalciferol (vitamin D3) 50 mcg (2,000 unit) capsule 2,000 unit PO QHS 09/04/17 [History Last Taken 10/06/18] alprazolam 0.5 mg tablet 0.5 mg PO QHS PRN PRN Anxiety 10/15/20 [History Last Taken Unknown] melatonin-pyridoxine HCl (vitamin B6) 5 mg-10 mg tablet 2 ea PO QHS 10/15/20 [History Last Taken Unknown] hydrocodone-acetaminophen 5-325mg 5mg-325mg 1 tab PO Q4H PRN PRN Pain 2 days #10 TABLETS 02/18/23 [Rx Last Taken Unknown] Allergy/AdvReac Type Severity Reaction Status Date / Time No Known Allergies Allergy Verified 03/31/22 17:15 Family History Mother Hypertension Surgical History S/P adenoidectomy S/P D&C (status post dilation and curettage) S/P tonsillectomy Status post tubal ligation Social History Smoking Status: Current every day smoker tobacco type: e-cigarettes alcohol intake: current alcohol intake frequency: a few times a month substance use type: does not use what type of physical activity do you participate in: none frequency: does not exercise seatbelt use: always ROS ROS ED Review of Systems ROS Unobtainable: other Constitutional Constitutional ED: Reports lethargy; Denies chills, fever(s), sweats or weight loss Eyes Eyes: Denies blurry vision, change in vision or diplopia ENT ENT ED: Denies rhinorrhea or sore throat Cardiovascular Cardiovascular: Denies chest pain, orthopnea or racing heartbeat Respiratory/Chest Respiratory/Chest: Denies cough, dyspnea, dyspnea on exertion, orthopnea or sputum Gastrointestinal Gastrointestinal: Denies abdominal pain, diarrhea, nausea or vomiting Genitourinary Genitourinary ED: Denies dysuria, hematuria or urinary frequency Musculoskeletal Musculoskeletal: Reports other Details: Left foot injury ; Denies arthralgias, back pain, myalgias or neck pain Integumentary Denies abscess, Abrasions or rash Neurologic Neurologic: Denies headache(s) or weakness Psychiatric Psychiatric: Denies anxiety, depression or suicidal thoughts Endocrine Endocrinology: Denies polydipsia, polyphagia or polyuria Hematologic/Lymphatic Hematologic/Lymphatic: Denies easy bleeding, easy bruising or lymphadenopathy Allergic/Immunologic Allergic/Immunologic ED: Denies mouth swelling, tongue swelling or urticaria EXAM Physical Exam Const Vital Signs: 02/18/23 10:37 Temperature 97.5 F L Temperature Source Temporal Pulse Rate 90 Respiratory Rate 18 Blood Pressure 185/100 H Blood Pressure Mean 128 Pulse Ox 98 Oxygen Delivery Method Room Air Positive well nourished and well developed General Appearance ED: well developed and NAD HEENT Reports TM's clear and moist mucous membranes normocephalic and atraumatic; Negative for trauma or tenderness Tympanic Membrane ED: Yes TM's clear Eyes PERRL and EOMs intact bilaterally General Eye ED: Negative for pale conjunctiva or scleral icterus Neck no lymphadenopathy, supple and no JVD General: Negative for tenderness Chest Wall inspection of chest normal and palpation of chest normal Chest: Negative for tenderness Resp normal respiratory effort and clear to auscultation bilaterally Effort and Inspection: Negative for respiratory distress or pain with movement Auscultation: Negative for rhonchi, wheezes or diminished lung sounds Cardio regular rate, regular rhythm, S1 normal heart sound, S2 normal heart sound and no murmurs Peripheral Pulses: pulses 2+ throughout GI normal to inspection, nondistended, normoactive bowel sounds, soft to palpation, non-tender, non-distended and no masses Back/Spine no CVA tenderness and no thoracic nor lumbar tenderness Extremity normal to inspection Extremity Narrative: Left foot-patient has a negative Lyman's test. I do not palpate a defect to the Achilles tendon as a matter fact intact and she is relatively painless over that area with palpation. Patient does have tenderness palpation over the calcaneus that reproduces her pain. No pain at the base of the fifth metatarsal. Neurovascular intact distally. No significant tenderness about the ankle on exam. General Extremety ED: Negative for edema General Extremity: Negative for edema Neuro oriented x3, CN's II-XII intact bilaterally, no sensory deficits noted and gait normal Sensorium / Orientation: awake, alert, oriented to person, oriented to place and oriented to time Motor Exam: strength 5/5 throughout and strength abnormal Psych mental status grossly normal Skin no rashes or lesions noted and no wounds MDM MDM MDM Narrative Medical decision making narrative: Patient presents with injury to the left foot. Clinically I do not feel she has an Achilles tendon tear as I do not feel a defect and she has a negative Lyman's test and really no significant discomfort over the Achilles tendon. Patient has a brace that she had from home that she will continue to wear. She has crutches. I will write her a prescription for hydrocodone. Patient will be referred to foot and ankle specialist for follow-up in 5 to 7 days. Patient instructed to ice and elevate the extremity. Radiography Diagnostic Testing: Clinical Impression(s) from Imaging Studies Foot X-Ray 02/18/23 10:52 IMPRESSION: No evidence of acute osseous injury as described above. Plantar calcaneal spur. Electronically Signed: Michael Mabry MD at 11:43 EDT , Os Calcis X-ray 02/18/23 10:52 IMPRESSION: Calcaneal spur. Electronically Signed: Michael Mabry MD at 11:58 EDT , Three-view x-rays of the left foot obtained interpreted by myself as no evidence of fracture or dislocation. Radiology in agreement. 2 view x-rays of left calcaneus obtained interpreted by myself as no acute fracture or dislocation. Official report from radiology pending. Discharge Plan Triage Chief Complaint: Lower Extremity Injury ED Provider: Daryl Polladr Dx/Rx/DC Orders Clinical Impression: Sprain of foot, left Instructions: ED Foot Contusion, ED Foot Sprain Prescriptions: New hydrocodone-acetaminophen [hydrocodone-acetaminophen] 5-325 mg tablet 1 tab PO Q4H PRN PRN (Reason: Pain) 2 Days Qty: 10 0RF No Action citalopram 20 MG tablet 40 mg PO QHS ferrous sulfate 325 MG tablet 325 mg PO QHS folic acid 0.8 MG tablet 0.8 mg PO QHS multivitamin with folic acid 1 TABLET tablet 1 tab PO DAILY ascorbic acid (vitamin C) 500 MG tablet 500 mg PO QHS cholecalciferol (vitamin D3) 2,000 UNIT capsule 2,000 unit PO QHS melatonin-pyridoxine HCl (B6) 1 EACH tablet 2 ea PO QHS alprazolam 0.5 MG tablet 0.5 mg PO QHS PRN PRN (Reason: Anxiety) Primary Care Provider: Denise Renee Referrals: Densie Renee MD [Primary Care Provider] - cJ Jeter DPM [Med Staff - Active Staff] - 5-7 Days Disposition Disposition: Home, Self Care Discharge Date/Time: 02/18/23 12:22
== END 2023-02-18 12:22 | disposition home or self-care (01) ==
PROVIDERS: Emergency Provider Emergency Medicine; PCP Family Medicine; Visit Provider Emergency Medicine
DX: S93.602A Unspecified sprain of left foot, initial encounter (principal); F17.290 Nicotine dependence, other tobacco product, uncomplicated; X58.XXXA Exposure to other specified factors, initial encounter
CPT/HCPCS: 73630; 73650; 99282

== ENCOUNTER → 2023-03-15 | Outpatient (CLI) | payer OTHER, SELFPAY ==
--- NOTE | 2023-03-15 16:08 | VDLE_ITS ---
Reason For Study: Swelling LLE RIGHT LEFT CFV is compressible, spontaneous, phasic, GSV is normal. competent and demonstrates normal CFV is compressible, spontaneous, phasic, augmentation. competent, and demonstrates normal Procedure augmentation. This is a venous duplex using B-mode, color FV is compressible, spontaneous, phasic, flow and spectral Doppler. competent and demonstrates normal Exam performed in department. augmentation. A preliminary report was called and/or faxed POP V is compressible, spontaneous, phasic, to Geovany STALEY. competent and demonstrates normal augmentation. T/P Trunk is compressible. PTV is compressible. LT PerV is compressible. VL/Venous Duplex US, Unilateral Interpretation Summary There is no evidence of left lower extremity deep vein thrombosis. Left great s aphenous vein appears patent and compressible segmentally. Normal flow patterns right common femoral vein Ordering Physician: Geovany Leone Referring Physician: Denise Renee Performed By: Negin Hightower RDCS, RVT
== END | disposition home or self-care (01) ==
LOC: CVS 16:05
PROVIDERS: PCP Family Medicine; Referring Provider Physician Assistant; Visit Provider Physician Assistant
DX: R22.42 Localized swelling, mass and lump, left lower limb (principal)
CPT/HCPCS: 93971

== ENCOUNTER → 2023-03-27 | Outpatient (CLI) | payer OTHER, SELFPAY ==
--- NOTE | 2023-03-27 10:16 | MRI_ITS ---
EXAM: MR LEFT LOWER EXTREMITY WITHOUT INTRAVENOUS CONTRAST, FOOT CLINICAL INDICATION: SPRAIN TECHNIQUE: Multiplanar and multisequence MR images of the left foot without intravenous contrast. COMPARISON: No relevant prior studies available. FINDINGS: LIGAMENTS: MEDIAL COLLATERAL: Unremarkable. Intact. LATERAL COLLATERAL: Unremarkable. Intact. LISFRANC: Unremarkable. Intact. TENDONS: FLEXOR: Unremarkable. Intact. EXTENSOR: Unremarkable. Intact. PERONEAL: Unremarkable. Intact. TIBIALIS ANTERIOR: Unremarkable. Intact. TIBIALIS POSTERIOR: Unremarkable. Intact. MUSCLES: Muscles are normal. FLUID: Unremarkable. No joint effusion. PLANTAR FASCIA: Proximal plantar fascia is not imaged on this study. Please see ankle MRI from same day. BONES/JOINTS: Unremarkable. Normal forefoot alignment. No fracture. No joint effusion. No bone marrow signal alterations. No hallux valgus deformity. No significant arthritic changes. OTHER SOFT TISSUES: Visualized tendons are normal. MRI/Lower Ext/No Jt/w/o IMPRESSION: No significant internal derangement Electronically Signed: Jay Vela MD at 23:08 EDT ,
--- NOTE | 2023-03-27 10:16 | MRI_ITS ---
EXAM: MR LEFT LOWER EXTREMITY WITHOUT INTRAVENOUS CONTRAST, ANKLE CLINICAL INDICATION: SPRAIN LEFT ANKLE TECHNIQUE: Multiplanar and multisequence MR images of the left ankle without intravenous contrast. COMPARISON: No relevant prior studies available. FINDINGS: LIGAMENTS: ANTERIOR TALOFIBULAR: Unremarkable. Intact. POSTERIOR TALOFIBULAR: Unremarkable. Intact. ANTERIOR TIBIOFIBULAR: Unremarkable. Intact. POSTERIOR TIBIOFIBULAR: Unremarkable. Intact. CALCANEOFIBULAR: Unremarkable. Intact. DELTOID: Unremarkable. Intact. SPRING: Unremarkable. Intact. LISFRANC: Unremarkable. Intact. TENDONS: ACHILLES: Unremarkable. Intact. FLEXOR: Unremarkable. Intact. EXTENSOR: Unremarkable. Intact. PERONEAL: Unremarkable. Intact. TIBIALIS ANTERIOR: Unremarkable. Intact. TIBIALIS POSTERIOR: Unremarkable. Intact. MUSCLES: Unremarkable. Normal bulk and signal. FLUID: Unremarkable. No joint effusion. SINUS TARSI: Unremarkable. Normal fat in the sinus tarsi. TARSAL TUNNEL: Unremarkable. PLANTAR FASCIA: Thickening of the central cord with increased signal surrounding this thickened portion of the cord. Prominent plantar calcaneal enthesophyte. CARTILAGE: Unremarkable. No osteochondral lesion. Articular cartilage intact. BONES/JOINTS: Unremarkable. Talar dome intact. No fracture or marrow edema. OTHER SOFT TISSUES: Unremarkable. MRI/Lower Ext Joint Only (Routine) IMPRESSION: Findings can be seen with plantar fasciitis. No other significant internal derangement. Electronically Signed: Jay Vela MD at 23:00 EDT Reading Location ID and State: [address] [place] [address] Tel , Service support ,
== END | disposition home or self-care (01) ==
LOC: MRI 10:01
PROVIDERS: PCP Family Medicine; Referring Provider Physician Assistant; Visit Provider Physician Assistant
DX: S93.692D Other sprain of left foot, subsequent encounter (principal); S93.492D Sprain of other ligament of left ankle, subsequent encounter; X58.XXXD Exposure to other specified factors, subsequent encounter
CPT/HCPCS: 73718; 73721

== ENCOUNTER 2023-04-11 12:00 | Outpatient (RCR) | payer OTHER, SELFPAY ==
--- NOTE | 2023-03-16 09:20 | HP.PTEVAL_ITS ---
Patient's Visit Information Visit Information Visit Information: ISABELLE RODRIGUEZ is a 58 year old F referred to Physical Therapy by Geovany Leone PA-C with a diagnosis of Left Ankle/Foot Pain. Date of Evaluation: 03/16/23 Physical Therapist: Josefina Wilkins DPT Visit Plan Frequency: 2x /Week Duration: 4 Weeks Plan: Modalities of US and Manual to Plantar Fascia- Proprioception and Strength/Stabilization to ankle HEP Given IE: water bottle roll and gentle massage with a golf ball Subjective Subjective: February 17- she was trying to get across the road and hurt her left ankle/foot. She had a Doppler yesterday to rule out blood clot. The pain is in the heel and radiates around the whole ankle and down the foot to the arch. The pain is constant. She has had x-rays nothing is broken- waiting on approval for an MRI. Worst: 01/28 Agg: movement. Constant 2-3 then shooting intermittent. Eases: ice, rest Best: 10. Achy and then she has sharp and shooting. No N/T in the foot. Sleep: hard to get comfortable- side sleeper. 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 She is able to hobble around- but she does use the crutches when she is out and about. She wears the ankle brace all the time when she is awake. She goes back to the MD tomorrow and she is suppose to return to work tomorrow. Does not wear orthotics in her shoes- wears sketchers at work or [employer] until recently- heel was sensitive before all this started. PMHx: none Meds: citalopram, medication for restless leg Objective Objective: Posture: FH, RS- can correct but does not maintain Gait: antalgic- decreased stance on the left LE with poor heel strike and toe off pattern- bilateral axillary crutches HR: able with 5/10 TR: unable in standing due to pain and reluctance to weight bear through heel SLS: weight shift only due to pain 5/10 Palpation: tender along proximal fibula- heel and plantar surface of the foot from heel to mets ROM: DF: neutral, PF: 60 degrees, Inver: 40 degrees, Ever: 25 degrees Flex: Gastroc: severe Soleus: moderate Strength: 4+/5 Special Test: Larissa Mechanism: Positive Balance/Special Test Scores Lower Extremity Functional Score: 16 Goals Goal 1:: Patient will be I with HEP and progression Goal Time Frame: 4-6 Weeks Goal 2:: Patient will SLS for 30 sec without LOB Goal Time Frame: 4-6 Weeks Goal 3:: Patient will ambulate >300 feet with a normalized gait pattern Goal Time Frame: 4-6 Weeks Goal 4:: Patient will report 80% improvement Goal Time Frame: 4-6 Weeks Rehabilitation Potential Physical Therapy Diagnosis: Patient presents with hypomobility- she has decreased ankle ROM, proprioception, flex and muscular endurance leading to abnormal gait pattern and increased pain with ADL's. Rehabilitation Potential: Fair Anticipated Interventions Patient/Client Instruction: Educate patient on: Benefits of Fitness Program Therapeutic Exercise to Include: Strength training, Endurance training, Balance training, Coordination, Agility training, Body mechanics, Postural training, Flexibilty training, Gait and locomotor training, Neuromotor development, Passive ROM, Active ROM, Dynamic Lumbar Stabilization and Scapular Strength/Stabilization For the Purpose of:: To improve muscle performance and motor function TENS: Yes Cryotherapy (ice pack, ice massage): Yes Thermo therapy (hot pack): Yes Ultrasound (thermal/non thermal): Yes Text: Thank you for the opportunity to evaluate your patient. For Medicare and Medicare HMO plans, please review the plan of care and approve it. It will need to be FAXED BACK to us at [phone] for Medicare purposes. For Medicare only, by signing this I certify the plan of care. Please let me know if there are questions or concerns regarding this plan of care. Physician Signature: Date:
--- NOTE | 2023-04-11 12:49 | HP.PTDCSUM ---
Discharge Summary D/C summary: It has been my pleasure to treat ISABELLE RODRIGUEZ referred by Geovany Leone PA-C, with the diagnosis of Left Ankle/Foot Pain for a total of 7 visit(s). Discharge Date: 04/11/23 Please see the following information for a summary of their discharge status. Subjective Subjective: Pt has had a big improvement. She still has to walk on the lateral side of her foot but starting to get it flatter. Somedays she is better and some days not so much. Some sx change cause she is baby it. She gets a cortizone shot on . Dr Rush is doing her surgery. Orthotics do help and so does not going barefoot. She feels comfortable doing her exs at home. Pain L foot: Pain Intensity (Out of 10): 2 Overall Improvement % Improvement: 70 Objective Objective/Function: SLS: on the L for 5 seconds and then has increase snapping Gait: Walks with decrease stance time on the L LE and decrease heel and toe gait pattern. Goals Goal 1:: Patient will be I with HEP and progression Goal Progress: Goal Met Goal 2:: Patient will SLS for 30 sec without LOB Goal Progress: Not Progressing Goal 3:: Patient will ambulate >300 feet with a normalized gait pattern Goal Progress: Progressing Goal 4:: Patient will report 80% improvement Goal Progress: Progressing Plan Plan: Modalities of US and Manual to Plantar Fascia- Proprioception and Strength/Stabilization to ankle D/C Information Discharge Comments: DC PT to HEP d/c sentence: If there are questions or concerns regarding this patient's physical therapy, please feel free to call me at [phone]. Thank you for the referral of this patient. Sincerely, Sandra Kincaid, MPT Balance/Gait/Functional tests Balance/Special Test Scores Lower Extremity Functional Score: 44
== END 2023-04-11 19:00 | disposition home or self-care (01) ==
LOC: PT 12:00
PROVIDERS: PCP Family Medicine; Referring Provider Physician Assistant; Visit Provider Physician Assistant
DX: S93.692D Other sprain of left foot, subsequent encounter (principal); M79.672 Pain in left foot
CPT/HCPCS: 97035; 97140; 97162; 97530

== ENCOUNTER → 2023-07-11 | Outpatient (CLI) | payer OTHER, SELFPAY ==
--- NOTE | 2023-07-11 14:53 | BI_ITS ---
MAMMOGRAPHY - BILATERAL SCREENING REASON FOR EXAM: Female, 58 years old. Routine annual screening examination. PERTINENT HISTORY: Non-contributory. Prior right stereotactic breast biopsy. TECHNIQUE: Digital bilateral breast jerrell (3D mammographic acquisition) in the CC and MLO projections. 2-D mediolateral oblique (MLO) and craniocaudad (CC) views of both breasts were obtained. CAD: Full Field Digital Mammography with Computer Added Detection was performed. COMPARISON: Comparison is made with prior study dated November 25, 2021 and May 08, 2020. FINDINGS: Breast Composition: The breasts are heterogeneously dense, which may obscure small masses. There are no dominant masses or suspicious calcifications. Tissue clip marker is once again seen in the slightly upper lateral aspect of the right breast. No other significant abnormalities are identified. There has been no significant change since the prior study. BI/SCRN MAMM (CAD)W/JERRELL BILAT IMPRESSION: Stable bilateral screening mammogram. Yearly follow-up mammogram recommended. (A) ASSESSMENT CATEGORY: BIRADS Category 2: Benign. A letter regarding these results will be sent to the patient by the facility within 30 days. Approximately 10% of breast cancers are not detected by mammography. A normal mammogram should not delay biopsy of a clinically suspicious abnormality. [id number] Electronically Signed: Geovanni Arias MD at 13:56 EST ,
--- NOTE | 2023-07-11 15:30 | CT_ITS ---
EXAM: CT CHEST, LUNG CANCER SCREENING WITHOUT INTRAVENOUS CONTRAST CLINICAL INDICATION: screening TECHNIQUE: Helically acquired images were obtained of the chest without intravenous contrast using low dose (LDCT) lung cancer screening protocol. This CT exam was performed using one or more of the following dose reduction techniques: automated exposure control, adjustment of the mA and/or kV according to patient size, and/or use of iterative reconstruction technique. COMPARISON: 06/20/2022 FINDINGS: LUNGS AND PLEURAL SPACES: Unremarkable. No mass. No consolidation or edema. No pleural effusion or thickening. No pneumothorax. HEART: Unremarkable. Heart size is normal. No pericardial effusion. No significant coronary artery calcifications. MEDIASTINUM: Unremarkable. No mediastinal or hilar adenopathy. Esophagus is unremarkable. No hiatal hernia. THYROID: Unremarkable. No thyroid lesions. BONES/JOINTS: Unremarkable. No suspicious lytic or blastic abnormality. VASCULATURE: Unremarkable. Thoracic aorta is non-dilated. LYMPH NODES: Unremarkable. No enlarged lymph nodes. CT/Low Dose CT Lung Screening IMPRESSION: No acute pulmonary abnormality. There has been no change from the reference exam. Lung-RADS score: 1 - Recommend continued annual screening with a low-dose CT (LDCT) in 12 months. Electronically Signed: Matt Wells MD at 0:12 EST ,
== END | disposition home or self-care (01) ==
LOC: CT 14:53
PROVIDERS: PCP Family Medicine; Referring Provider Family Medicine; Visit Provider Family Medicine
DX: Z12.31 Encounter for screening mammogram for malignant neoplasm of breast (principal); Z12.2 Encounter for screening for malignant neoplasm of respiratory organs
CPT/HCPCS: 71271; 77063; 77067

== ENCOUNTER 2023-11-06 07:49 | Day surgery (SDC) | payer OTHER, SELFPAY ==
[2023-11-06] VITALS (7 sets, daily range): BP systolic 86–136; BP diastolic 56–96; PULSE 59–76; RESP 16–18; TEMP 36.3–36.6; O2SAT 92–100; BMI 27.2
--- NOTE | 2023-11-06 07:55 | PCM.HP.STD ---
[facility] - General General Date of Service: 11/06/23 Chief Complaint: Screening for intestinal cancer [facility] Narrative ISABELLE RODRIGUEZ, is a 58 F who presents for screening colonoscopy today. She presents via open access. She has a maternal grandmother and grandfather who had colon cancer. I have assisted her previously on September 05 with a colonoscopy and a benign polyp was removed. She has had an opportunity to ask and have questions answered. She denies any acute symptoms. PFSH Medical History Alcohol use Arthritis Depression Family hx of colon cancer History of echocardiogram History of IBS Injury of head and neck Irritable bowel syndrome with diarrhea Lateral epicondylitis Low iron Menorrhagia Myalgia Myositis Smoker Home Medications ferrous sulfate 325 mg (65 mg iron) tablet 325 mg PO QHS 01/26/15 [History Last Taken 10/06/18] folic acid 800 mcg tablet 1.6 mg PO QHS 01/26/15 [History Last Taken 10/06/18] multivitamin with folic acid 400 mcg tablet 1 tab PO DAILY 01/26/15 [History Last Taken 10/06/18] ascorbic acid (vitamin C) 500 mg tablet 500 mg PO QHS 09/04/17 [History Last Taken 10/06/18] cholecalciferol (vitamin D3) 50 mcg (2,000 unit) capsule 2,000 unit PO QHS 09/04/17 [History Last Taken 10/06/18] alprazolam 0.5 mg tablet 0.5 mg PO QHS PRN PRN Anxiety 08/17/23 [History Last Taken Unknown] citalopram 20 mg tablet 40 mg PO QHS 08/17/23 [History Last Taken Unknown] lactobacillus combination no.4 3 billion cell capsule (Probiotic) 3,000 mmu cells PO DAILY 08/17/23 [History Last Taken Unknown] loperamide 2 mg capsule (Imodium A-D) 2 mg PO Q8H PRN loose stool 08/17/23 [History Last Taken Unknown] mecobalamin (vitamin B12) 1,000 mcg chewable tablet 1,000 mcg PO DAILY 08/17/23 [History Last Taken Unknown] pramipexole 0.125 mg tablet 0.125 mg PO QHS 08/17/23 [History Last Taken Unknown] psyllium husk (with sugar) 3.4 gram oral powder packet (Metamucil (with sugar)) 1 tbsp PO DAILY 08/17/23 [History Last Taken Unknown] melatonin 5 mg capsule 5 mg PO QHS 11/02/23 [History Last Taken Unknown] zinc 50 mg capsule 50 mg PO DAILY 11/02/23 [History Last Taken Unknown] Allergy/AdvReac Type Severity Reaction Status Date / Time No Known Allergies Allergy Verified 11/02/23 15:37 Family History (Updated 08/17/23 @ 12:37 by Ellyn Hooks) Mother Hypertension Grandfather Colon cancer Grandmother Colon cancer Surgical History Hx of colonoscopy with polypectomy S/P adenoidectomy S/P D&C (status post dilation and curettage) S/P tonsillectomy Status post tubal ligation Social History Smoking Status: Current every day smoker tobacco type: e-cigarettes alcohol intake: current alcohol intake frequency: a few times a month substance use type: does not use what type of physical activity do you participate in: none frequency: does not exercise seatbelt use: always ROS Constitutional Constitutional: Reports systems reviewed and no addt'l complaints, except as documented Cardiovascular Cardiovascular: Denies chest pain Respiratory/Chest Respiratory/Chest: Denies shortness of breath at rest Gastrointestinal Gastrointestinal: Denies abdominal pain, change in bowel habits, hematochezia or melena Physical Exam Const alert, oriented x3 and no apparent distress General Appearance: cooperative and comfortable Eyes General Eye: normal appearance of both eyes Neck General: normal visual inspection Chest inspection of chest normal Resp Effort and Inspection: able to speak in complete sentences and symmetric chest movement Auscultation: clear to auscultation bilaterally Cardio regular rate and regular rhythm GI soft to palpation, non-tender and non-distended Extremity no calf tenderness Neuro oriented x3 Psych thought process normal Assessment & Plan Assessment/Plan (1) Encounter for screening for malignant neoplasm of colon: PLAN: 58-year-old female presents for screening colonoscopy today. She is aware of the technique, benefit, risk, alternatives. She is had an opportunity to ask and have questions answered. She presents via open access. We will proceed as noted. Walker Garrett M.D., F.A.C.S.
[2023-11-06] MEDS: Lactated Ringers 1,000 ML 15 ML IV (08:22)
--- NOTE | 2023-11-06 09:57 | OP.COLON_ITS ---
Patient Name: Pamela Fonseca Procedure Date: 11/06/2023 9:31 AM Date of : 1965 Age: 58 Procedure: Colonoscopy Indications: High risk colon cancer surveillance: Personal history of colonic polyps Providers: Walker Garrett MD Medicines: See the Anesthesia note for documentation of the administered medications Patient Profile: Last Colonoscopy: August 2017. Complications: No immediate complications. Procedure: Pre-Anesthesia Assessment: - Prior to the procedure, a History and Physical was performed, and patient medications and allergies were reviewed. The patient's tolerance of previous anesthesia was also reviewed. The risks and benefits of the procedure and the sedation options and risks were discussed with the patient. All questions were answered, and informed consent was obtained. Prior Anticoagulants: The patient has taken no anticoagulant or antiplatelet agents. ASA Grade Assessment: II - A patient with mild systemic disease. After reviewing the risks and benefits, the patient was deemed in satisfactory condition to undergo the procedure. After I obtained informed consent, the scope was passed under direct vision. Throughout the procedure, the patient's blood pressure, pulse, and oxygen saturations were monitored continuously. The pediatric colonoscope was introduced through the anus and advanced to the cecum, identified by appendiceal orifice and ileocecal valve. The colonoscopy was performed without difficulty. The patient tolerated the procedure well. The quality of the bowel preparation was good. The ileocecal valve and the appendiceal orifice were photographed. Scope In: 9:39:50 AM Scope Withdrawal Time 0 hours 7 minutes 41 seconds Scope Out: 9:52:25 AM Total Procedure Duration Time 0 hours 12 minutes 35 seconds Findings: The digital rectal exam findings include non-thrombosed external hemorrhoids, non-thrombosed internal hemorrhoids and internal hemorrhoids that prolapse with straining, but spontaneously regress to the resting position (Grade II). Multiple diverticula were found in the sigmoid colon. The exam was otherwise without abnormality. Impression: - Non-thrombosed external hemorrhoids, non-thrombosed internal hemorrhoids and internal hemorrhoids that prolapse with straining, but spontaneously regress to the resting position (Grade II) found on digital rectal exam. - Diverticulosis in the sigmoid colon. - The examination was otherwise normal. - No specimens collected. Recommendation: - Discharge patient to home. - Resume previous diet. - Continue present medications. - Repeat colonoscopy in 5 years for surveillance. Procedure Code(s): --- Professional --- 48482, Colonoscopy, flexible; diagnostic, including collection of specimen(s) by brushing or washing, when performed (separate procedure) Diagnosis Code(s): --- Professional --- Z86.010, Personal history of colonic polyps K64.1, Second degree hemorrhoids K64.4, Residual hemorrhoidal skin tags K57.30, Diverticulosis of large intestine without perforation or abscess without bleeding CPT copyright 2021 [employer]. All rights reserved. The codes documented in this report are preliminary and upon agricultural researcher review may be revised to meet current compliance requirements. Walker Garrett MD 11/06/2023 9:56:31 AM This report has been signed electronically. Number of Addenda: 0 Note Initiated On: 11/06/2023 9:31 AM
--- NOTE | 2023-11-06 09:57 | OP.CCLET_ITS ---
11/06/2023 Denise Renee [address] [place] [address] Re : Colonoscopy procedure for Pamela Fonseca Dear Dr. Renee This procedure was performed on Monday, November 06, 2023. My impressions and recommendations are as follows: Impressions : - Non-thrombosed external hemorrhoids, non-thrombosed internal hemorrhoids and internal hemorrhoids that prolapse with straining, but spontaneously regress to the resting position (Grade II) found on digital rectal exam. - Diverticulosis in the sigmoid colon. - The examination was otherwise normal. - No specimens collected. Recommendations : - Discharge patient to home. - Resume previous diet. - Continue present medications. - Repeat colonoscopy in 5 years for surveillance. My findings are described in the full procedure note, which is enclosed. If I can be of further assistance, please feel free to contact me at Doctor phone number(s): Work: . Sincerely, Walker Garrett MD 11/06/2023 9:56:31 AM This report has been signed electronically.
== END 2023-11-06 10:32 | disposition home or self-care (01) ==
LOC: EN 07:50 → AC 07:51
PROVIDERS: PCP Family Medicine; Referring Provider Family Medicine; Visit Provider Surgery
PROC: 0DJD8ZZ Inspection of Lower Intestinal Tract, Via Natural or Artificial Opening Endoscopic (ICD-10-PCS; CPT 45378; principal; 2023-11-06 08:55)
DX: Z12.11 Encounter for screening for malignant neoplasm of colon (principal); F17.290 Nicotine dependence, other tobacco product, uncomplicated; K64.4 Residual hemorrhoidal skin tags; K64.1 Second degree hemorrhoids; K57.30 Diverticulosis of large intestine without perforation or abscess without bleeding; F32.A Depression, unspecified; Z80.0 Family history of malignant neoplasm of digestive organs; Z79.899 Other long term (current) drug therapy; Z86.010 Personal history of colon polyps
CPT/HCPCS: 45378; J7120; J2405

== ENCOUNTER → 2023-11-08 | Outpatient (CLI) | payer OTHER, SELFPAY ==
[2023-11-08 13:29] LABS: Absolute Lymphocyte Count 1.89 X10^3/uL (0.83-4.51); Absolute Neutrophil Count 4.9 X10^3/uL (2.0-7.7); Basophil# 0.05 X10^3/uL; Basophil% 0.7 % (0-1); Eosinophil# 0.19 X10^3/uL; Eosinophils% 2.5 % (0-5); Hematocrit 44.3 % (37-47); Hemoglobin 14.5 g/dL (12.0-15.0); Lymphocyte # 1.89 X10^3/ul (0.83-4.51); Lymphocyte % 25.3 % (19-41); Mean Corp Hgb Conc 32.7 g/dL (32-36); Mean Corpuscular Volume 94.7 fL (81-99); Mean Platelet Vol. 10.6 fl (6.2-12.0); Monocyte# 0.46 X10^3/uL; Monocyte% 6.1 % (0-10); NRBC Flagged by Analyzer 0 % (0-5); Neutrophil # 4.87 X10^3/uL (2.7-7.7); Neutrophil % 65.1 % (47-70); Platelet Count 256 K/mm3 (150-450); RBC Distribution Width SD 41.5 fl (35.1-43.9); Red Blood Count 4.68 M/mm3 (4.2-5.4); White Blood Count 7.5 K/mm3 (4.4-11.0)
--- NOTE | 2023-11-08 13:30 | RAD_ITS ---
STUDY: X-RAY - ABDOMEN/PELVIS REASON FOR EXAM: Female, 58 years old. Abdominal pain s/p colonoscopy TECHNIQUE: AP supine and upright views of the abdomen and pelvis. COMPARISON: None. FINDINGS: Normal visualized lung bases. Moderate amount of fecal material is seen throughout the colon. There is no demonstrated free abdominal air. The visualized liver, spleen and kidneys are grossly normal in size and morphology. There are calcified phleboliths in the pelvis. Normal visualized osseous structures. RAD/Abd Inc Decub and/or Erect IMPRESSION: Moderate amount of fecal material is seen throughout the colon. Electronically Signed: Geovanni Arias MD at 13:45 EDT ,
[2023-11-08 13:41] LABS: Anion Gap 5 (5-15); BUN 10 mg/dL (7-18); BUN/Creat Ratio 11.9 RATIO (10-20); Calcium,Total 9.2 mg/dL (8.5-10.1); Chloride 107 mmol/L (98-107); Creatinine, Serum 0.84 mg/dL (0.55-1.02); EST Glomerular Filtration Rate 75 mL/min (>60); Est Glom Filt Rate - Afr Amer 90 mL/min (>60); Glucose 140 mg/dL (74-106); Potassium 3.6 mmol/L (3.5-5.1); Sodium Level 140 mmol/L (136-145)
== END | disposition home or self-care (01) ==
PROVIDERS: PCP Family Medicine; Referring Provider Physician Assistant; Visit Provider Physician Assistant
DX: R10.9 Unspecified abdominal pain (principal)
CPT/HCPCS: 36415; 74019; 80048; 85025

== ENCOUNTER 2024-03-04 19:09 | Emergency (ER) | payer OTHER, SELFPAY ==
[2024-03-04 19:10] VITALS: BP 143/112; PULSE 92; RESP 16; TEMP 35.8; O2SAT 100; BMI 26.9
[2024-03-04 19:43] LABS: Absolute Lymphocyte Count 2.19 X10^3/uL (0.83-4.51); Absolute Neutrophil Count 3.9 X10^3/uL (2.0-7.7); Basophil# 0.06 X10^3/uL; Basophil% 0.9 % (0-1); Eosinophil# 0.25 X10^3/uL; Eosinophils% 3.7 % (0-5); Hematocrit 45.3 % (37-47); Hemoglobin 14.7 g/dL (12.0-15.0); Lymphocyte # 2.19 X10^3/ul (0.83-4.51); Lymphocyte % 32.1 % (19-41); Mean Corp Hgb Conc 32.5 g/dL (32-36); Mean Corpuscular Hgb 30.7 pg (27.0-32.0); Mean Corpuscular Volume 94.6 fL (81-99); Mean Platelet Vol. 10.3 fl (6.2-12.0); Monocyte# 0.41 X10^3/uL; NRBC Flagged by Analyzer 0 % (0-5); Neutrophil # 3.91 X10^3/uL (2.7-7.7); Neutrophil % 57.2 % (47-70); Platelet Count 253 K/mm3 (150-450); RBC Distribution Width CV 12.4 % (11.6-14.6); RBC Distribution Width SD 43.3 fl (35.1-43.9); Red Blood Count 4.79 M/mm3 (4.2-5.4); White Blood Count 6.8 K/mm3 (4.4-11.0)
--- NOTE | 2024-03-04 19:53 | ED.VIS.GI ---
HPI HPI - GI History of Present Illness Chief Complaint: Flank Pain Narrative Narrative: 59-year-old female with right flank pain. She stated started last evening and she noted it when she stood up but it felt sharp in the inguinal region. Today it has been higher up. She states it does feel like a dull ache. She rates it a 4 out of 10. Movement seems to make it worse. States she states that today it is radiating to the back as well. No fevers or chills. No nausea or vomiting. No history of kidney stones. No urinary or vaginal complaints. No constipation or diarrhea. [facility] Medical History Alcohol use Arthritis Low iron Injury of head and neck History of IBS Smoker History of echocardiogram Irritable bowel syndrome with diarrhea Family hx of colon cancer Myositis Myalgia Lateral epicondylitis Depression Menorrhagia Home Medications ?Medication ?Instructions ?Recorded ?Last Taken ?Type ferrous sulfate 325 mg (65 mg 325 mg PO QHS 01/26/15 10/06/18 History iron) tablet folic acid 800 mcg tablet 1.6 mg PO QHS 01/26/15 10/06/18 History multivitamin with folic acid 400 1 tab PO DAILY 01/26/15 10/06/18 History mcg tablet ascorbic acid (vitamin C) 500 mg 500 mg PO QHS 09/04/17 10/06/18 History tablet cholecalciferol (vitamin D3) 50 2,000 unit PO QHS 09/04/17 10/06/18 History mcg (2,000 unit) capsule alprazolam 0.5 mg tablet 0.5 mg PO QHS PRN PRN Anxiety 08/17/23 Unknown History lactobacillus combination no.4 3 3,000 mmu cells PO DAILY 08/17/23 Unknown History billion cell capsule (Probiotic) loperamide 2 mg capsule (Imodium 2 mg PO Q8H PRN loose stool 08/17/23 Unknown History A-D) mecobalamin (vitamin B12) 1,000 1,000 mcg PO DAILY 08/17/23 Unknown History mcg chewable tablet pramipexole 0.125 mg tablet 0.125 mg PO QHS 08/17/23 Unknown History psyllium husk (with sugar) 3.4 1 tbsp PO DAILY 12/28/23 Unknown History gram oral powder packet (Metamucil (with sugar)) melatonin 5 mg capsule 5 mg PO QHS 11/02/23 Unknown History zinc 50 mg capsule 50 mg PO DAILY 11/02/23 Unknown History citalopram 40 mg tablet 40 mg PO DAILY 03/04/24 Unknown History hydrocodone-acetaminophen 5-325mg 1 tab PO Q6H PRN PRN Pain 3 days 03/04/24 Unknown Rx 5mg-325mg #10 TABLETS Allergy/AdvReac Type Severity Reaction Status Date / Time No Known Allergies Allergy Verified 03/04/24 19:10 Family History Mother Hypertension Grandfather Colon cancer Grandmother Colon cancer Surgical History Hx of colonoscopy with polypectomy Status post tubal ligation S/P D&C (status post dilation and curettage) S/P adenoidectomy S/P tonsillectomy Social History Smoking Status: Current every day smoker tobacco type: e-cigarettes alcohol intake: current alcohol intake frequency: a few times a month substance use type: does not use what type of physical activity do you participate in: none frequency: does not exercise seatbelt use: always ROS ROS ED Constitutional Constitutional ED: Denies chills, fever(s) or sweats Eyes Eyes: Denies blurry vision or change in vision ENT ENT ED: Denies ear pain or sore throat Cardiovascular Cardiovascular: Denies chest pain, palpitations or racing heartbeat Respiratory/Chest Respiratory/Chest: Denies cough, dyspnea or sputum Gastrointestinal Gastrointestinal: Reports abdominal pain; Denies constipation, diarrhea, nausea or vomiting Genitourinary Genitourinary ED: Denies dysuria, hematuria or urinary frequency Musculoskeletal Musculoskeletal: Reports back pain; Denies arthralgias, myalgias or neck pain Integumentary Denies abscess, Abrasions or rash Neurologic Neurologic: Denies headache(s), paresthesias or weakness Psychiatric Psychiatric: Denies anxiety, depression, suicidal ideation or suicidal thoughts Endocrine Endocrinology: Denies polydipsia or polyuria EXAM Physical Exam Const Vital Signs: 03/04/24 19:10 03/04/24 21:10 Temperature 96.5 F L Temperature Source Temporal Pulse Rate 92 89 Respiratory Rate 16 18 Blood Pressure 143/112 H 145/96 H Blood Pressure Mean 122 112 Pulse Ox 100 95 Oxygen Delivery Method Room Air Room Air Positive well nourished General Appearance ED: NAD; Negative for pallor HEENT Reports moist mucous membranes normocephalic Resp normal respiratory effort Cardio regular rate and regular rhythm GI non-tender, non-distended and no masses Back/Spine General Back: CVA tenderness right Extremity full ROM Neuro CN's II-XII intact bilaterally, moves all extremities and no sensory deficits noted Sensorium / Orientation: alert Motor Exam: strength 5/5 throughout Psych mental status grossly normal Skin no wounds General Skin Exam: Negative for jaundice or pallor MDM MDM MDM Narrative Medical decision making narrative: Patient presenting with right flank pain. Patient presenting with right flank pain. Differential includes colitis, diverticulitis, constipation, appendicitis, UTI, pyelonephritis, calculi, ureteral calculi, obstruction, malignancy, dehydration, electrolyte abnormalities, ovarian torsion, ovarian cyst. CBC ([id number]. renal function electrolytes within normal limits. Urinalysis negative for infection and occult blood. Patient states she did not get much relief from Toradol therefore I ordered some morphine and Zofran. We obtained a CT of the abdomen pelvis without contrast. Reevaluation at 10:32 PM patient states she is pain-free and doing much better. CT of the abdomen pelvis was negative for acute findings. It is unclear whether the patient has an abdominal wall strain or passed kidney stone but I will write her prescription for [place] for home. Return precautions discussed. Impression: 1. Right flank pain Lab Data Attestation: I reviewed the patient's lab results. Labs: Laboratory Results - last 24 hr 03/04/24 03/04/24 19:20 20:06 WBC 6.8 RBC 4.79 Hgb 14.7 Hct 45.3 MCV 94.6 MCH 30.7 MCHC 32.5 RDW Std Deviation 43.3 RDW Coeff of Anuel 12.4 Plt Count 253 MPV 10.3 Immature Gran % (Auto) 0.100 Neut % (Auto) 57.2 Lymph % (Auto) 32.1 [place] % (Auto) 6.0 Eos % (Auto) 3.7 Baso % (Auto) 0.9 Absolute Neuts (auto) 3.9 Absolute Lymphs (auto) 2.19 Nucleated RBC % 0 Sodium 139 Potassium 3.9 Chloride 107 Carbon Dioxide 26.0 Anion Gap 6 BUN 13 Creatinine 0.89 Estim Creat Clear Calc 69.97 Est GFR (MDRD) Af Amer 84 Est GFR (MDRD) Non-Af 70 BUN/Creatinine Ratio 14.6 Glucose 133 H Calcium 9.8 Urine Color Yellow Urine Clarity Clear Urine pH 6.0 Ur Specific [place] 1.020 Urine Protein 15 H Urine Glucose (UA) Normal Urine Ketones Negative Urine Occult Blood Negative Urine Nitrite Negative Urine Bilirubin Negative Urine Urobilinogen Normal Ur Leukocyte Esterase 25 H Urine RBC 0 SEEN Urine WBC 0-5 SEEN Ur Squamous Epith Cells 0-5 SEEN Urine Bacteria 0 SEEN Urine Mucus 0 SEEN Discharge Plan Triage Chief Complaint: Flank Pain ED Provider: Victor Manuel Castro Dx/Rx/DC Orders Instructions: ED Flank Pain, Uncertain Cause Prescriptions: New hydrocodone-acetaminophen 5-325 mg tablet 1 tab PO Q6H PRN PRN (Reason: Pain) 3 Days Qty: 10 0RF No Action loperamide [Imodium A-D] 2 mg capsule 2 mg PO Q8H PRN (Reason: loose stool) pramipexole 0.125 mg tablet 0.125 mg PO QHS Probiotic 3 billion cell capsule 3,000 mmu cells PO DAILY Rx Instructions: administer with a meal Metamucil (with sugar) 3.4 gram powder in packet 1 tbsp PO DAILY mecobalamin (vitamin B12) 1,000 mcg tablet,chewable 1,000 mcg PO DAILY ferrous sulfate 325 MG tablet 325 mg PO QHS folic acid 0.8 MG tablet 1.6 mg PO QHS multivitamin with folic acid 1 TABLET tablet 1 tab PO DAILY ascorbic acid (vitamin C) 500 MG tablet 500 mg PO QHS cholecalciferol (vitamin D3) 2,000 UNIT capsule 2,000 unit PO QHS alprazolam 0.5 mg tablet 0.5 mg PO QHS PRN PRN (Reason: Anxiety) melatonin 5 mg capsule 5 mg PO QHS zinc 50 mg capsule 50 mg PO DAILY citalopram 40 mg tablet 40 mg PO DAILY Primary Care Provider: Denise Renee Referrals: Denise Renee MD [Primary Care Provider] - Print Language: Burmese Disposition Disposition: Home, Self Care
[2024-03-04] MEDS: Ketorolac 15 MG/ML Vial IV (20:07)
[2024-03-04 20:14] LABS: Bacteria 0 SEEN /hpf (None Seen); Mucous, Urine 0 SEEN /hpf (<or=2+); Red Blood Cells-Urine 0 SEEN /hpf (0-5)
[2024-03-04 20:16] LABS: Color, Urine Yellow (Yellow); Glucose, Dipstick Normal (Normal); Ketone-Dipstick Negative (Negative); Leukocyte Esterase-Dipstick 25 /ul (Negative); Nitrite-Dipstick Negative (Negative); Occult Blood-Urine Negative /ul (Negative); Protein-Dipstick 15 mg/dl (Negative); Urine Bilirubin Dipstick Negative (Negative); Urine Clarity Clear (Clear); Urine Urobilinogen Normal (Normal)
[2024-03-04 20:30] LABS: White Blood Cells 0-5 SEEN /hpf (0-5)
[2024-03-04 20:31] LABS: Squamous Epithelial Cells - UA 0-5 SEEN /hpf (5-10)
[2024-03-04 20:53] LABS: Anion Gap 6 (5-15); BUN 13 mg/dL (7-18); BUN/Creat Ratio 14.6 RATIO (10-20); Calcium,Total 9.8 mg/dL (8.5-10.1); Chloride 107 mmol/L (98-107); Creatinine, Serum 0.89 mg/dL (0.55-1.02); EST Glomerular Filtration Rate 70 mL/min (>60); Est Glom Filt Rate - Afr Amer 84 mL/min (>60); Estimated Creatinine Clearance 69.97 ml/min; Glucose 133 mg/dL (74-106); Potassium 3.9 mmol/L (3.5-5.1); Sodium Level 139 mmol/L (136-145)
[2024-03-04 21:10] VITALS: BP 145/96; PULSE 89; RESP 18; O2SAT 95
[2024-03-04] MEDS: Morphine 4 MG/ML Syringe IV (21:13)
[2024-03-04] MEDS: Ondansetron 4 MG/2 ML Vial IV (21:13)
--- NOTE | 2024-03-04 21:30 | CT_ITS ---
STUDY: CT ABDOMEN AND PELVIS WITHOUT CONTRAST REASON FOR EXAM: Female, 59 years old. RIGHT FLANK PAIN RADIATION DOSAGE (If Supplied By Facility): CTDIvol = ( 9.81 ) mGy, DLP = ( 475.56 ) mGycm TECHNIQUE: Transaxial images were obtained from the dome of the diaphragm to the symphysis pubis without oral contrast, and without intravenous contrast. Sagittal and coronal images were reconstructed. Individualized dose optimization techniques were used for this CT. COMPARISON: 01/26/2015. FINDINGS: The visualized lung bases are unremarkable. The visualized portions of the heart are within normal limits. There is decreased attenuation of the liver consistent with steatosis. Normal gallbladder and extrahepatic biliary system. Normal spleen. Normal pancreas. Normal bilateral adrenal glands. No acute abnormalities of the kidneys. No stones. No hydronephrosis. 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 Evaluation of the GI tract is limited by absence of oral contrast. Cannot exclude stomach wall thickening. No dilated loops of bowel or evidence for obstruction. Cannot exclude segmental thickening of the gale[place] of the small or large bowel. Cannot exclude enteritis or colitis. Moderate diffuse fecal retention. Appendix within normal limits. Normal abdominal aorta. Normal inferior vena cava. Normal retroperitoneum. Normal urinary bladder. Normal visualized uterus. Normal abdominal wall. Normal osseous structures. CT/Abdomen/Pelvis without Cont IMPRESSION: No acute abnormalities. No renal or ureteral stones are seen. No hydronephrosis. Electronically Signed: Harry Bain MD at 22:16 EDT ,
[2024-03-04 23:18] VITALS: BP 137/86; PULSE 77; RESP 16; TEMP 35.8; O2SAT 96
== END 2024-03-04 23:19 | disposition home or self-care (01) ==
PROVIDERS: Emergency Provider Student in an Organized Health Care Education/Training Program; PCP Family Medicine; Visit Provider Student in an Organized Health Care Education/Training Program
DX: R10.9 Unspecified abdominal pain (principal); F17.290 Nicotine dependence, other tobacco product, uncomplicated; F32.A Depression, unspecified; Z79.899 Other long term (current) drug therapy
CPT/HCPCS: 74176; 80048; 81001; 85025; 96374; 96375; 96376; 99284; A4216; J2405

== ENCOUNTER 2024-03-20 07:03 | Emergency (ER) | payer OTHER, SELFPAY ==
[2024-03-20 07:04] VITALS: BP 198/122; PULSE 98; RESP 17; TEMP 36.1; O2SAT 100
--- NOTE | 2024-03-20 07:14 | EKG12_ITS ---
Test Reason : DIZZINESS Blood Pressure : / mmHG Vent. Rate : 076 BPM Atrial Rate : 076 BPM P-R Int : 140 ms QRS Dur : 074 ms QT Int : 362 ms P-R-T Axes : 014 -01 002 degrees QTc Int : 407 ms Normal sinus rhythm Normal ECG Confirmed by JESSICA CHOI, KATE ([id number]), publication editor SADAF HAND ([id number]) on 03/22/2024 10:21:24 AM Referred By: Confirmed By:NEDA LOPEZ MD
--- NOTE | 2024-03-20 07:14 | CT_ITS ---
STUDY: CT BRAIN WITHOUT CONTRAST REASON FOR EXAM: Female, 59 years old. Dizziness RADIATION DOSAGE (If Supplied By Facility): CTDIvol = ( 47.06 ) mGy, DLP = ( 943.26 ) mGycm TECHNIQUE: Transaxial CT imaging of the brain was performed without administration of intravenous contrast material. Individualized dose optimization techniques were used for this CT. COMPARISON: No relevant priors. FINDINGS: Normal soft tissue structures. Normal calvarium. Normal size ventricles and extra-axial spaces for the patient''s age. Normal white matter tracts of the cerebral hemispheres. Normal basal ganglia and thalami. Normal brainstem. Normal cerebellum. There is no intracranial hemorrhage. There are no findings of an acute ischemic infarction. There is a 1.3 cm mucosal polyp or retention cyst along the inferior medial wall of the right maxillary sinus. Minimal mucosal thickening of the ethmoid sinuses. CT/Brain/Head without Contrast IMPRESSION: Normal unenhanced CT scan of the brain. 1.3 cm mucosal polyp or retention cyst along the inferior medial wall of the right maxillary sinus as well as mild degree of mucosal thickening of the ethmoid sinuses. Electronically Signed: Geovanni Arias MD at 8:01 EDT ,
--- NOTE | 2024-03-20 07:15 | EX.ED.DYSGE1 ---
HPI History of Present Illness Chief Complaint: Dizziness Narrative Narrative: 59-year-old female who denies significant past medical history with exception of depression and anxiety, presents with lightheadedness and dizziness that she has had for the last few days. She states it was very intermittent over the last few days. Sometimes she would turn her head more to the left and be dizzy for 2 minutes. She describes it more as an off-balance feeling and lightheadedness. No recent fevers or chills, no chest pain, no headaches, no shortness of breath. She denies leg swelling. Is probably worse when she looks to reduce the left as well. She states she was able to drive to work today, but when she got here, she became very dizzy and lightheaded. [facility] Medical History Alcohol use Arthritis Low iron Injury of head and neck History of IBS Smoker History of echocardiogram Irritable bowel syndrome with diarrhea Family hx of colon cancer Myositis Myalgia Lateral epicondylitis Depression Menorrhagia Home Medications ?Medication ?Instructions ?Recorded ?Last Taken ?Type ferrous sulfate 325 mg (65 mg 325 mg PO QHS 01/26/15 10/06/18 History iron) tablet folic acid 800 mcg tablet 1.6 mg PO QHS 01/26/15 10/06/18 History multivitamin with folic acid 400 1 tab PO DAILY 01/26/15 10/06/18 History mcg tablet ascorbic acid (vitamin C) 500 mg 500 mg PO QHS 09/04/17 10/06/18 History tablet cholecalciferol (vitamin D3) 50 2,000 unit PO QHS 09/04/17 10/06/18 History mcg (2,000 unit) capsule alprazolam 0.5 mg tablet 0.5 mg PO QHS PRN PRN Anxiety 08/17/23 Unknown History lactobacillus combination no.4 3 3,000 mmu cells PO DAILY 08/17/23 Unknown History billion cell capsule (Probiotic) loperamide 2 mg capsule (Imodium 2 mg PO Q8H PRN loose stool 08/17/23 Unknown History A-D) mecobalamin (vitamin B12) 1,000 1,000 mcg PO DAILY 08/17/23 Unknown History mcg chewable tablet pramipexole 0.125 mg tablet 0.125 mg PO QHS 08/17/23 Unknown History psyllium husk (with sugar) 3.4 1 tbsp PO DAILY 08/17/23 Unknown History gram oral powder packet (Metamucil (with sugar)) melatonin 5 mg capsule 5 mg PO QHS 11/02/23 Unknown History zinc 50 mg capsule 50 mg PO DAILY 11/02/23 Unknown History citalopram 40 mg tablet 40 mg PO DAILY 03/04/24 Unknown History hydrocodone-acetaminophen 5-325mg 1 tab PO Q6H PRN PRN Pain 3 days 03/04/24 Unknown Rx 5mg-325mg #10 TABLETS meclizine 25 mg tablet 25 mg PO 4X/DAY PRN PRN Dizziness 03/20/24 Unknown Rx #20 tabs Allergy/AdvReac Type Severity Reaction Status Date / Time No Known Allergies Allergy Verified 03/20/24 07:09 Family History Mother Hypertension Grandfather Colon cancer Grandmother Colon cancer Surgical History Hx of colonoscopy with polypectomy Status post tubal ligation S/P D&C (status post dilation and curettage) S/P adenoidectomy S/P tonsillectomy Social History Smoking Status: Current every day smoker tobacco type: e-cigarettes alcohol intake: current alcohol intake frequency: a few times a month substance use type: does not use what type of physical activity do you participate in: none frequency: does not exercise seatbelt use: always ROS ROS ED ROS Narrative Constitutional: No fever, no chills. HEENT: No sore throat. No neck pain. No loss of vision. No rhinorrhea. Cardiovascular: No chest pain. No palpitations. No pedal edema. Respiratory: No cough, no shortness of breath. Abdominal: No abdominal pain. Mild nausea. No vomiting. Genitourinary: No dysuria. No hematuria. Musculoskeletal: No myalgias. No arthralgias. Neurologic: No headaches. Positive dizziness lightheadedness. Skin: No rash. No change in color. Psychiatric: No depression. No anxiety. EXAM Physical Exam Narrative Exam Narrative: Afebrile. Vital signs noted. GCS 15. ABCs intact. HEENT: Normocephalic. Atraumatic. PERRL, EOMI. Neck soft and supple. No point tenderness or step off. Cardiovascular: Regular rate and rhythm. No murmurs, rubs, or gallops appreciated. Respiratory: No tachypnea. Lungs clear to auscultation bilaterally. Gastrointestinal: Abdomen soft, nontender, with normoactive bowel sounds. No rebound or guarding. Neurological: Awake. Alert. Nonfocal, nonlateralizing. Normal murdhr-oo-kvdu/cerebellar function as tested. Skin: No rash. Normal color. No pallor. Musculoskeletal: No pedal edema. Full range of motion extremities. Const Vital Signs: 03/20/24 07:04 Temperature 96.9 F L Temperature Source Temporal Pulse Rate 98 Respiratory Rate 17 Blood Pressure 198/122 H Blood Pressure Mean 147 Pulse Ox 100 Oxygen Delivery Method Room Air MDM MDM MDM Narrative Medical decision making narrative: Differential diagnosis includes but not limited to benign positional vertigo versus orthostatic hypotension versus dehydration versus hypertensive encephalopathy versus intracranial hemorrhage. Patient states she does not take anything for her blood pressure. Her blood pressure was noted to be 198/122. She was placed on a manager monitoring and administered hydralazine/ordered hydralazine. I do feel CT imaging of the brain would be indicated to also rule out cerebellar stroke as her symptoms have been ongoing albeit intermittently for the last 4 days. I have low concern for acute coronary syndrome as she is not having chest pain. EKG was obtained and interpreted by myself independently as normal sinus rhythm at 76 bpm without ectopy or acute ST changes. No STEMI. I reviewed her laboratory work and she has a normal white count of 6.8 with hemoglobin 14.0, hematocrit 41.9, platelet count normal at 256. CMP is grossly unremarkable except for chloride 109 which I think is nonspecific, ALT slightly elevated at 64. High 70 troponin is 4. I do not feel she needs serial enzymes. I reviewed the radiology report of the CT of the brain and shows no acute process. She was administered meclizine 25 mg orally. Repeat examination at approximately 9:10 AM shows her to be mildly improved. She states she was able to ambulate to the bathroom already. I do feel that she probably has more of a benign positional vertigo given that when she looks left or turns her head she would get the dizziness associated with nausea. She was written a prescription for meclizine. She will be off work today and follow-up with her primary care provider. Return instructions to the emergency department were reviewed. She was also told to keep an eye on her blood pressure and have frequent checks because of its elevation without diagnosis of hypertension. I feel she can be discharged to follow-up. Return instructions to the emergency department reviewed. Disposition is discharged home, in stable condition. History & Record Review Discussion w/independent historian: Patient Lab Data Attestation: I reviewed the patient's lab results. Labs: Laboratory Results - last 24 hr 03/20/24 07:26 WBC 6.8 RBC 4.56 Hgb 14.0 Hct 41.9 MCV 91.9 MCH 30.7 MCHC 33.4 RDW Std Deviation 42.5 RDW Coeff of Anuel 12.6 Plt Count 256 MPV 10.3 Immature Gran % (Auto) 0.300 Neut % (Auto) 54.6 Lymph % (Auto) 31.4 [place] % (Auto) 8.9 Eos % (Auto) 4.1 Baso % (Auto) 0.7 Absolute Neuts (auto) 3.7 Absolute Lymphs (auto) 2.14 Nucleated RBC % 0 Sodium 140 Potassium 3.8 Chloride 109 H Carbon Dioxide 25.0 Anion Gap 6 BUN 13 Creatinine 0.81 Est GFR (MDRD) Af Amer 93 Est GFR (MDRD) Non-Af 77 BUN/Creatinine Ratio 16.0 Glucose 102 Calcium 9.2 Total Bilirubin 0.60 AST 35 ALT 64 H Alkaline Phosphatase 88 Troponin I High Sens 4 Total Protein 7.0 Albumin 3.6 Globulin 3.4 Albumin/Globulin Ratio 1.1 Radiography Diagnostic Testing: Clinical Impression(s) from Imaging Studies Brain CT 03/20/24 07:14 IMPRESSION: Normal unenhanced CT scan of the brain. 1.3 cm mucosal polyp or retention cyst along the inferior medial wall of the right maxillary sinus as well as mild degree of mucosal thickening of the ethmoid sinuses. Electronically Signed: Geovanni Arias MD at 8:01 EDT , Discharge Plan Triage Chief Complaint: Dizziness ED Provider: Catalino Nicolas Dx/Rx/DC Orders Clinical Impression: Vertigo, Lightheadedness, Elevated blood pressure reading without diagnosis of hypertension Instructions: Vertigo Medicine Tx, ED Dizziness, Uncertain Cause, ED Vertigo, Unspecified Prescriptions: New meclizine 25 mg tablet 25 mg PO 4X/DAY PRN PRN (Reason: Dizziness) Qty: 20 0RF No Action loperamide [Imodium A-D] 2 mg capsule 2 mg PO Q8H PRN (Reason: loose stool) pramipexole 0.125 mg tablet 0.125 mg PO QHS Probiotic 3 billion cell capsule 3,000 mmu cells PO DAILY Rx Instructions: administer with a meal Metamucil (with sugar) 3.4 gram powder in packet 1 tbsp PO DAILY mecobalamin (vitamin B12) 1,000 mcg tablet,chewable 1,000 mcg PO DAILY ferrous sulfate 325 MG tablet 325 mg PO QHS folic acid 0.8 MG tablet 1.6 mg PO QHS multivitamin with folic acid 1 TABLET tablet 1 tab PO DAILY ascorbic acid (vitamin C) 500 MG tablet 500 mg PO QHS cholecalciferol (vitamin D3) 2,000 UNIT capsule 2,000 unit PO QHS alprazolam 0.5 mg tablet 0.5 mg PO QHS PRN PRN (Reason: Anxiety) melatonin 5 mg capsule 5 mg PO QHS zinc 50 mg capsule 50 mg PO DAILY citalopram 40 mg tablet 40 mg PO DAILY hydrocodone-acetaminophen 5-325 mg tablet 1 tab PO Q6H PRN PRN (Reason: Pain) 3 Days Qty: 10 0RF Stand Alone Forms: ED Work / School Excuse Primary Care Provider: Denise Renee Referrals: Denise Renee MD [Primary Care Provider] - 3-5 Days if not improving Activity Restrictions/Additional Instructions: Meclizine as directed. Follow-up with your primary care provider in the next few days. Return with new or worsening symptoms. Keep an eye on your blood pressure. Print Language: Micronesian Disposition Disposition: Home, Self Care
[2024-03-20] MEDS: hydrALAZINE 20 MG/ML Vial 10 MG IV (07:23)
[2024-03-20 07:43] LABS: Absolute Lymphocyte Count 2.14 X10^3/uL (0.83-4.51); Absolute Neutrophil Count 3.7 X10^3/uL (2.0-7.7); Basophil# 0.05 X10^3/uL; Basophil% 0.7 % (0-1); Eosinophil# 0.28 X10^3/uL; Eosinophils% 4.1 % (0-5); Hematocrit 41.9 % (37-47); Lymphocyte # 2.14 X10^3/ul (0.83-4.51); Lymphocyte % 31.4 % (19-41); Mean Corp Hgb Conc 33.4 g/dL (32-36); Mean Corpuscular Hgb 30.7 pg (27.0-32.0); Mean Corpuscular Volume 91.9 fL (81-99); Mean Platelet Vol. 10.3 fl (6.2-12.0); Monocyte# 0.61 X10^3/uL; Monocyte% 8.9 % (0-10); NRBC Flagged by Analyzer 0 % (0-5); Neutrophil # 3.72 X10^3/uL (2.7-7.7); Neutrophil % 54.6 % (47-70); Platelet Count 256 K/mm3 (150-450); RBC Distribution Width CV 12.6 % (11.6-14.6); RBC Distribution Width SD 42.5 fl (35.1-43.9); Red Blood Count 4.56 M/mm3 (4.2-5.4); White Blood Count 6.8 K/mm3 (4.4-11.0)
[2024-03-20 08:08] LABS: ALB/GLOB Ratio 1.1 RATIO (0.9-2.4); AST(SGOT) 35 U/L (15-37); Alanine Aminotransfer ALT/SGPT 64 U/L (13-56); Albumin, Serum 3.6 g/dL (3.2-5.0); Alkaline Phosphatase 88 U/L (45-117); Anion Gap 6 (5-15); BUN 13 mg/dL (7-18); Calcium,Total 9.2 mg/dL (8.5-10.1); Chloride 109 mmol/L (98-107); Creatinine, Serum 0.81 mg/dL (0.55-1.02); EST Glomerular Filtration Rate 77 mL/min (>60); Est Glom Filt Rate - Afr Amer 93 mL/min (>60); Globulin 3.4 g/dL (2.2-4.2); Glucose 102 mg/dL (74-106); Potassium 3.8 mmol/L (3.5-5.1); Sodium Level 140 mmol/L (136-145); Troponin-I HS 4 pg/mL (3.0-54.0)
[2024-03-20] MEDS: Meclizine HCl 25 MG Tablet PO (08:32)
[2024-03-20 09:04] VITALS: BP 137/99; PULSE 87; RESP 16; O2SAT 97
[2024-03-20 09:26] VITALS: BP 137/99; PULSE 91; RESP 16; TEMP 36.5; O2SAT 99
== END 2024-03-20 09:32 | disposition home or self-care (01) ==
PROVIDERS: Emergency Provider Emergency Medicine; PCP Family Medicine; Visit Provider Emergency Medicine
DX: R42 Dizziness and giddiness (principal); R03.0 Elevated blood-pressure reading, without diagnosis of hypertension; F17.290 Nicotine dependence, other tobacco product, uncomplicated
CPT/HCPCS: 70450; 80053; 84484; 85025; 93005; 96374; 99284; A4216

== ENCOUNTER 2024-04-12 12:00 | Outpatient (RCR) | payer OTHER, SELFPAY ==
--- NOTE | 2024-04-03 16:58 | HP.PTEVAL_ITS ---
Patient's Visit Information Visit Information Visit Information: ISABELLE RODRIGUEZ is a 59 year old F referred to Physical Therapy by Dr. William Brown MD with a diagnosis of cervicogenic vertigo. Date of Evaluation: 04/03/24 Physical Therapist: William Rodgers, DPT, OCS, CSCS Visit Plan Frequency: 2x /Week Duration: 4-6 Weeks Plan: 2x/week for 4-6 for 1. MH STM and PROM and neck mobs and manual traction to cervical spine, focus L rotation and ret/ext, stretch neck muscles and strengthen posture when dizzyness gone. 2. Montior tolerance to VOR ex at home and progress as needed IE: cervical rotation with OP L and ext 10x 2x/day and VOR seated 60 sec 6x/day Subjective Subjective: I am dizzy all the time for two weeks. Had some history of head turns dizzyness. Parked car and turned body to open door and started spinning and it lasted all day. Went to ER and got blood pressure meds which was [place] high and given meclizine. It did help. PCP next day and thought BPPV and cristopher did not help. Turning head made it worse but still constant spinning. intensity has improved somewhat. over last two weeks. Monday was a bad day and yesterday had almost no dizzyness. Car rides make her worse. Reading makes her worse. Had heart EKG and catscan in hospital. Today was really dizzy upon sitting up. less severe yesterday then today. 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 Basic ADLS are OK at home Hobbies: None. Swim, walk dogs, mow yard. Has been walking dogs but manuela holds leash. Dr. Brown thinks it is cervicogenic. No real neck pain. Stiff at times. Objective Objective: cervical rotation 55 L and 70 R no pain , 50 extension and pain with retraction. stiff with extension. Walks and trasnfers well. UE AROM WFL. sensation UE WNL - c/s compression strength UE without myotomal problems at 4/5 - B hallpike aaron - roll test Oculomotor:: no nystagmus with gaze or head shake. - skew eye deviation - ocular tilt - head thrust + DVA 6 lines difference from SVA saccades adn pursuit and VOR are all normal but symptomatic / with 30 seconds- one minute recovery Balance/Special Test Scores Functional Gait Assessment Score: 28 % Disability: 6.6700 Dizziness Score: 60 Goals Goal 1:: Full neck symmetrical ROM rotation adn 65 ext without pain. Goal Time Frame: 4-6 Weeks Goal 2:: Dizzyness abolished Goal Time Frame: 4-6 Weeks Goal 3:: 30/30 FGA Goal Time Frame: 4-6 Weeks Goal 4:: Pt feel 99% back to normal activities and work Goal Time Frame: 4-6 Weeks Rehabilitation Potential Physical Therapy Diagnosis: vertigenous symptoms limiting QOL and DD include cervicogenic vs vestibular dysfunciton Rehabilitation Potential: Fair Anticipated Interventions Patient/Client Instruction: Educate patient on: Condition and Plan of Care For the Purpose of:: To increase tolerance to activity/condition/position Therapeutic Exercise to Include: Strength training, Postural training, Flexibilty training, Passive ROM and Active ROM For the Purpose of:: To increase ROM, To improve nutrient delivery to tissue, To increase tolerance to activity/condition/position and To improve gait and locomo tor functions Manual Therapy Techniques to Include: Mobilization, Passive ROM and Soft tissue mobilization For the Purpose of:: To increase tolerance to activity/condition/position For the Purpose of:: To improve nutrient delivery to tissue Text: Thank you for the opportunity to evaluate your patient. For Medicare and Medicare HMO plans, please review the plan of care and approve it. It will need to be FAXED BACK to us at [phone] for Medicare purposes. For Medicare only, by signing this I certify the plan of care. Please let me know if there are questions or concerns regarding this plan of care. Physician Signature: Date:
--- NOTE | 2024-07-29 12:47 | HP.PT.NRP ---
Patient Information Patient Information: ISABELLE RODRIGUEZ was seen in my office for initial evaluation on 04/03/24. The following Plan of Care was established for this patient: POC Established Initial Frequency: 2x /Week Initial Duration: 4-6 Weeks Anticipated Interventions Patient/Client Instruction: Educate patient on: Condition and Plan of Care For the Purpose of:: To increase tolerance to activity/condition/position Therapeutic Exercise to Include: Strength training, Postural training, Flexibilty training, Passive ROM and Active ROM For the Purpose of:: To increase ROM, To improve nutrient delivery to tissue, To increase tolerance to activity/condition/position and To improve gait and locomotor functions Manual Therapy Techniques to Include: Mobilization, Passive ROM and Soft tissue mobilization For the Purpose of:: To increase tolerance to activity/condition/position For the Purpose of:: To improve nutrient delivery to tissue Last Seen Last Seen: This patient was last seen in our office 06/20/24. Pertinent comments regarding their Physical therapy will appear below: Pt seen 8 visits of POC adn was 80% better. Plan was to call within two weeks if she needed return. At this point, it has been over 2 months and I will discontinue. At this point I will be discontinuing this patient from physical therapy. I would be happy to see this patient again in the future if found appropriate by the physician. Thank you! William Rodgers, DPT, OCS, CSCS Balance/Gait/Functional tests Balance/Special Test Scores Functional Gait Assessment Score: 28 % Disability: 6.6700 Dizziness Score: 60
== END 2024-04-12 19:00 | disposition home or self-care (01) ==
LOC: PT 12:00
PROVIDERS: PCP Family Medicine; Referring Provider Otolaryngology; Visit Provider Otolaryngology
DX: R42 Dizziness and giddiness (principal)
CPT/HCPCS: 97110; 97140; 97161

== ENCOUNTER 2024-04-18 04:05 | Emergency (ER) | payer OTHER, SELFPAY ==
[2024-04-18 04:06] VITALS: BP 1455/96; PULSE 106; RESP 18; TEMP 37.1; O2SAT 93; BMI 27.4
--- NOTE | 2024-04-18 04:14 | EDS_ITS ---
HPI History of Present Illness Chief Complaint: Upper Extremity Injury Detail of Chief Complaint: Injury to left shoulder Informant: patient Narrative Narrative: Patient presents to the emergency department with complaint of injury to the l eft shoulder. Patient states that she went fishing this morning with her family member. Patient sat on a tackle box which rolled that caused her to fall onto her left shoulder. She denies striking her head or loss of consciousness. She denies neck pain. She denies chest pain. Her neighbor brought her in for evaluation. Patient was concerned she may have dislocated her shoulder. She is right-hand dominant. Patient admits to having some beer and tequila prior to going fishing. [facility] Medical History Alcohol use Arthritis Low iron Injury of head and neck History of IBS Smoker History of echocardiogram Irritable bowel syndrome with diarrhea Family hx of colon cancer Myositis Myalgia Lateral epicondylitis Depression Menorrhagia Home Medications ?Medication ?Instructions ?Recorded ?Last Taken ?Type ferrous sulfate 325 mg (65 mg 325 mg PO QHS 01/26/15 10/06/18 History iron) tablet folic acid 800 mcg tablet 1.6 mg PO QHS 01/26/15 10/06/18 History multivitamin with folic acid 400 1 tab PO DAILY 01/26/15 10/06/18 History mcg tablet ascorbic acid (vitamin C) 500 mg 500 mg PO QHS 09/04/17 10/06/18 History tablet cholecalciferol (vitamin D3) 50 2,000 unit PO QHS 09/04/17 10/06/18 History mcg (2,000 unit) capsule alprazolam 0.5 mg tablet 0.5 mg PO QHS PRN PRN Anxiety 08/17/23 Unknown History lactobacillus combination no.4 3 3,000 mmu cells PO DAILY 08/17/23 Unknown History billion cell capsule (Probiotic) loperamide 2 mg capsule (Imodium 2 mg PO Q8H PRN loose stool 08/17/23 Unknown History A-D) mecobalamin (vitamin B12) 1,000 1,000 mcg PO DAILY 08/17/23 Unknown History mcg chewable tablet pramipexole 0.125 mg tablet 0.125 mg PO QHS 08/17/23 Unknown History psyllium husk (with sugar) 3.4 1 tbsp PO DAILY 08/17/23 Unknown History gram oral powder packet (Metamucil (with sugar)) melatonin 5 mg capsule 5 mg PO QHS 11/02/23 Unknown History zinc 50 mg capsule 50 mg PO DAILY 11/02/23 Unknown History citalopram 40 mg tablet 40 mg PO DAILY 03/04/24 Unknown History hydrocodone-acetaminophen 5-325mg 1 tab PO Q6H PRN PRN Pain 3 days 03/04/24 Unknown Rx 5mg-325mg #10 TABLETS meclizine 25 mg tablet 25 mg PO 4X/DAY PRN PRN Dizziness 03/20/24 Unknown Rx #20 tabs Allergy/AdvReac Type Severity Reaction Status Date / Time No Known Allergies Allergy Verified 04/18/24 04:08 Family History Mother Hypertension Grandfather Colon cancer Grandmother Colon cancer Surgical History Hx of colonoscopy with polypectomy Status post tubal ligation S/P D&C (status post dilation and curettage) S/P adenoidectomy S/P tonsillectomy Social History Smoking Status: Current every day smoker tobacco type: e-cigarettes alcohol intake: current alcohol intake frequency: a few times a month substance use type: does not use what type of physical activity do you participate in: none frequency: does not exercise seatbelt use: always ROS ROS ED Review of Systems ROS Unobtainable: other Constitutional Constitutional ED: Reports lethargy; Denies chills, fever(s), sweats or weight loss Eyes Eyes: Denies blurry vision, change in vision or diplopia ENT ENT ED: Denies rhinorrhea or sore throat Cardiovascular Cardiovascular: Denies chest pain, orthopnea or racing heartbeat Respiratory/Chest Respiratory/Chest: Denies cough, dyspnea, dyspnea on exertion, orthopnea or sputum Gastrointestinal Gastrointestinal: Denies abdominal pain, diarrhea, nausea or vomiting Genitourinary Genitourinary ED: Denies dysuria, hematuria or urinary frequency Musculoskeletal Musculoskeletal: Reports other Details: Left shoulder injury ; Denies arthralgias, back pain, myalgias or neck pain Integumentary Denies abscess, Abrasions or rash Neurologic Neurologic: Denies headache(s) or weakness Psychiatric Psychiatric: Denies anxiety, depression or suicidal thoughts Endocrine Endocrinology: Denies polydipsia, polyphagia or polyuria Hematologic/Lymphatic Hematologic/Lymphatic: Denies easy bleeding, easy bruising or lymphadenopathy Allergic/Immunologic Allergic/Immunologic ED: Denies mouth swelling, tongue swelling or urticaria EXAM Physical Exam Const Vital Signs: 04/18/24 04:06 Temperature 98.7 F Temperature Source Oral Pulse Rate 106 H Respiratory Rate 18 Blood Pressure 1455/96 H Blood Pressure Mean 549 Pulse Ox 93 Oxygen Delivery Method Room Air Positive well nourished and well developed General Appearance ED: well developed and NAD HEENT Reports TM's clear and moist mucous membranes normocephalic and atraumatic; Negative for trauma or tenderness Tympanic Membrane ED: Yes TM's clear Eyes PERRL and EOMs intact bilaterally General Eye ED: Negative for pale conjunctiva or scleral icterus Neck no lymphadenopathy, supple and no JVD General: Negative for tenderness Chest Wall inspection of chest normal and palpation of chest normal Chest: Negative for tenderness Resp normal respiratory effort and clear to auscultation bilaterally Effort and Inspection: Negative for respiratory distress or pain with movement Auscultation: Negative for rhonchi, wheezes or diminished lung sounds Cardio regular rate, regular rhythm, S1 normal heart sound, S2 normal heart sound and no murmurs Peripheral Pulses: pulses 2+ throughout GI normal to inspection, nondistended, normoactive bowel sounds, soft to palpation, non-tender, non-distended and no masses Back/Spine no CVA tenderness and no thoracic nor lumbar tenderness Extremity Extremity Narrative: Left shoulder-no obvious deformity. There is no ecchymosis or bruising. No sulcus sign. She is able to abduct past 90 degrees. Neurovascular intact distally. Mild diffuse tenderness about the glenohumeral joint. No tenderness over the scapula. General Extremety ED: Negative for edema General Extremity: Negative for edema Neuro oriented x3, CN's II-XII intact bilaterally, no sensory deficits noted and gait normal Sensorium / Orientation: awake, alert, oriented to person, oriented to place and oriented to time Motor Exam: strength 5/5 throughout and strength abnormal Psych mental status grossly normal Skin no rashes or lesions noted and no wounds MDM MDM MDM Narrative Medical decision making narrative: Patient presents with injury to left shoulder. [id number]. Clinically no signs of dislocation or trauma. X-rays of the left shoulder obtained were negative for fracture or dislocation. At this point she was offered a sling however she states she has 1 at home. She does not want thing for pain. Patient will be referred to orthopedics for follow-up. She is advised to return if increasing pain, swelling, or condition worsen anyway Radiography Diagnostic Testin view x-rays of the left shoulder obtained interpreted by myself as no evidence of fracture or dislocation. Radiology in agreement Discharge Plan Triage Chief Complaint: Upper Extremity Injury ED Provider: Daryl Pollard Dx/Rx/DC Orders Clinical Impression: Contusion of left shoulder, Sprain of left shoulder Instructions: ED Contusion, Upper Extremity, ED Shoulder Sprain Prescriptions: No Action loperamide [Imodium A-D] 2 mg capsule 2 mg PO Q8H PRN (Reason: loose stool) pramipexole 0.125 mg tablet 0.125 mg PO QHS Probiotic 3 billion cell capsule 3,000 mmu cells PO DAILY Rx Instructions: administer with a meal Metamucil (with sugar) 3.4 gram powder in packet 1 tbsp PO DAILY mecobalamin (vitamin B12) 1,000 mcg tablet,chewable 1,000 mcg PO DAILY ferrous sulfate 325 MG tablet 325 mg PO QHS folic acid 0.8 MG tablet 1.6 mg PO QHS multivitamin with folic acid 1 TABLET tablet 1 tab PO DAILY ascorbic acid (vitamin C) 500 MG tablet 500 mg PO QHS cholecalciferol (vitamin D3) 2,000 UNIT capsule 2,000 unit PO QHS alprazolam 0.5 mg tablet 0.5 mg PO QHS PRN PRN (Reason: Anxiety) melatonin 5 mg capsule 5 mg PO QHS zinc 50 mg capsule 50 mg PO DAILY citalopram 40 mg tablet 40 mg PO DAILY hydrocodone-acetaminophen 5-325 mg tablet 1 tab PO Q6H PRN PRN (Reason: Pain) 3 Days Qty: 10 0RF meclizine 25 mg tablet 25 mg PO 4X/DAY PRN PRN (Reason: Dizziness) Qty: 20 0RF Primary Care Provider: Denise Renee Referrals: Denise Renee MD [Primary Care Provider] - Rodrigo Perea MD [Med Staff - Active Staff] - 3-5 Days Print Language: [place] Disposition Disposition: Home, Self Care
--- NOTE | 2024-04-18 04:14 | RAD_ITS ---
EXAM: XR LEFT SHOULDER COMPLETE, 2 OR MORE VIEWS CLINICAL INDICATION: injury TECHNIQUE: Two or more views of the left shoulder. COMPARISON: No relevant prior studies available. FINDINGS: BONES/JOINTS: Unremarkable. No acute fracture. No subluxation. Normal alignment. Preservation of the joint space. No sclerotic or destructive changes observed. SOFT TISSUES: Unremarkable. No soft tissue swelling or gas. No radiopaque foreign body. RAD/Shoulder min 2 Views IMPRESSION: Negative left shoulder x-rays. Electronically Signed: Gregory Yan MD at 4:49 EDT ,
== END 2024-04-18 05:01 | disposition home or self-care (01) ==
PROVIDERS: Emergency Provider Emergency Medicine; PCP Family Medicine; Visit Provider Emergency Medicine
DX: S40.012A Contusion of left shoulder, initial encounter (principal); S43.402A Unspecified sprain of left shoulder joint, initial encounter; F17.290 Nicotine dependence, other tobacco product, uncomplicated; F32.A Depression, unspecified; Z79.899 Other long term (current) drug therapy; W19.XXXA Unspecified fall, initial encounter
CPT/HCPCS: 73030; 99282

== ENCOUNTER → 2024-05-13 | Outpatient (CLI) | payer OTHER, SELFPAY ==
--- NOTE | 2024-05-13 07:41 | MRI_ITS ---
STUDY: MRI LEFT SHOULDER REASON FOR EXAM: Female, 59 years old. LT SHOULDER SPRAIN, CONTUSION TECHNIQUE: Standardized fat and water weighted pulse sequences were obtained in all 3 orthogonal planes. COMPARISON: Left shoulder radiographs dated 04/18/2024. FINDINGS: There is mild supraspinatus tendinosis without a full-thickness tear (coronal T2 series 5 images 13-14). Normal infraspinatus tendon. Normal subscapularis tendon. Normal teres minor tendon. Normal supraspinatus muscle. Normal infraspinatus muscle. Normal subscapularis muscle. Normal teres minor muscle. Normal glenohumeral articulation. There is mild enthesopathic subcortical cyst formation of the greater tuberosity of the humeral head. Normal biceps labral complex. Normal intracapsular long biceps tendon. Normal labrum. Normal capsulo-ligamentous complex. Normal rotator interval. There is mild hypertrophic acromioclavicular arthrosis, with inferior osteophyte formation, which minimally abuts the supraspinatus myotendinous junction (sagittal T2 series 6 image 8). There is a Type II morphology (curved), with a neutral orientation. There is no subacromial-subdeltoid bursal fluid. Normal visualized coracohumeral and coracoacromial ligaments. Normal quadrilateral space. Normal axillary space. Normal deltoid muscle. Normal trapezius muscle. MRI/Upper Ext Joint Only(Routine) IMPRESSION: Mild supraspinatus tendinosis without a full-thickness rotator cuff tear. Mild hypertrophic acromioclavicular arthrosis, with inferior osteophyte formation, which minimally abuts the supraspinatus myotendinous junction. Electronically Signed: Antoine Alcaraz MD at 9:40 EDT ,
== END | disposition home or self-care (01) ==
LOC: MRI 07:12
PROVIDERS: PCP Family Medicine; Referring Provider Physician Assistant Surgical; Visit Provider Physician Assistant Surgical
DX: S43.492A Other sprain of left shoulder joint, initial encounter (principal); S40.012A Contusion of left shoulder, initial encounter
CPT/HCPCS: 73221

== ENCOUNTER → 2024-06-03 | Outpatient (CLI) | payer OTHER, SELFPAY ==
[2024-06-07 12:10] LABS: HPV APTIMA, High Risk Negative (Negative)
[2024-06-07 13:24] LABS: HPV Reflexed? YES, CHARGE PATIENT
== END | disposition home or self-care (01) ==
PROVIDERS: PCP Family Medicine; Referring Provider Family Medicine; Visit Provider Family Medicine
DX: Z12.4 Encounter for screening for malignant neoplasm of cervix (principal)
CPT/HCPCS: 87624; 88175; G0145

== ENCOUNTER → 2024-06-12 | Outpatient (CLI) | payer OTHER, SELFPAY ==
--- NOTE | 2024-06-12 07:57 | BI_ITS ---
MAMMOGRAPHY - BILATERAL SCREENING REASON FOR EXAM: Female, 59 years old. Routine annual screening examination. PERTINENT HISTORY: Non-contributory. Remote right stereotactic breast biopsy. TECHNIQUE: Digital bilateral breast jerrell (3D mammographic acquisition) in the CC and MLO projections. 2-D mediolateral oblique (MLO) and craniocaudad (CC) views of both breasts were obtained. CAD: Full Field Digital Mammography with Computer Added Detection was performed. COMPARISON: Comparison is made with prior study July 11, 2023 and November 25, 2021. FINDINGS: Breast Composition: The breasts are heterogeneously dense, which may obscure small masses. There are no dominant masses or suspicious calcifications. A tissue clip marker is seen in the upper lateral aspect of the right breast. This is unchanged. No other significant abnormalities are identified. There has been no significant change since the prior study. BI/SCRN MAMM (CAD)W/JERRELL BILAT IMPRESSION: Stable bilateral screening mammogram. Yearly follow-up mammogram recommended. (A) ASSESSMENT CATEGORY: BIRADS Category 2: Benign. A letter regarding these results will be sent to the patient by the facility within 30 days. Approximately 10% of breast cancers are not detected by mammography. A normal mammogram should not delay biopsy of a clinically suspicious abnormality. [id number] Electronically Signed: Geovanni Arias MD at 10:27 EDT ,
--- OUTSIDE RECORDS SUMMARY | 2024-06-12 08:18 | XMS RPT_ITS | CCD ---
Author Organization [facility] [place] Care Team Providers Care Knuckle Bender Name Role Phone DRISS OLSON Primary Care Unavailable ORAL NICOLE Attending Unavailable MADY RUFF Attending Unavailable DRISS OLSON Primary Care Unavailable Problems Problem Classification Problem Date Documented Date Episodic/Chronic Conditions associated with dizziness or vertigo (2 sources) Dizziness and giddiness; Translations: [Dizziness and giddiness] Onset: 03-26-2024 Episodic Other ear and sense organ disorders (2 sources) Sensorineural hearing loss, bilateral; Translations: [Sensorineural hearing loss, bilateral] Onset: 03-26-2024 Chronic Results Test Name Value Interpretation Reference Range Facility [facility] 03-26-2018 CNOV Office Visit ([facility]STR) ISABELLE RODRIGUEZ ([id number]) 1965 FDate Time Provider Department03/26/18 2:45 PM MARGAUX CHANG) [facility]WSTR During your visit today, we recorded the following information about you: Temperature Pulse Respiration Blood pressure 97.8 degrees 70/minute 16/minute 128/84 Weight 63 kgMargaux Chang PA-C 03/26/2018 4:43 PM SignedSubjectiveHPIPt presents with an insect bite on her right fourth finger x 2 days. It hadgotten more red around it today so she came in for evaluation. The rash isitchy and painful. She was tent camping over the weekend when she noticed it.No fever or chills. No discharge.Review of SystemsSkin: Rash right ring finger.All other systems reviewed and are negative.PAST MEDICAL HISTORYDiagnosis Date- Mild dysplasia of cervix 2003Current Outpatient Prescriptions:ALPRAZolam (XANAX) 0.5 mg tablet Take 0.5 mg by mouth at bedtime as needed.Disp: Rfl:FEXOFENADINE HCL (GÓMEZ ORAL) Take by mouth. Disp: Rfl:albuterol HFA (PROVENTIL HFA, VENTOLIN HFA) 90 mcg/actuation inhaler Inhale 2Puffs as instructed every 6 hours as needed. Disp: 1 Inhaler Rfl: 0citalopram hydrobromide(CELEXA 20 MG TAB) one tablet daily Disp: Rfl: 0THERAPEUTIC MULTIVITAMIN TAB Take one(1) tablet daily. Disp: Rfl: 0CAL-600 WITH VITAMIN D 600 MG-200 UNIT TAB Take one(1) tablet two(2) timesdaily. Disp: Rfl: 0FOLIC ACID 800 MCG TAB Take one(1) tablet three times daily.+ Disp: Rfl: 0mupirocin (BACTROBAN) 2 % cream Apply 1 application to affected area threetimes daily for 10 days. Location: finger Disp: 15 g Rfl: 0ZOLPIDEM TARTRATE (AMBIEN ORAL) Take by mouth. Disp: Rfl:No current facility-administered medications for this visit.PAST SURGICAL HISTORYProcedure Laterality Date- BX BREAST PERC VACUUM/ROTN 07/11/2008 Right - Benign- CERVIX UTERI CONIZA LP ELCTRO EXCI 2002 LEEP-Cervix- LIGATE FALLOPIAN TUBE Tubal ligation- REMOVAL ADENOIDS,PRIMARY,<12 Y/O Adenoidectomy- REMOVAL OF TONSILS,<12 Y/O TonsillectomyFAMILY HISTORYProblem Relation Age of Onset- None Mother- None Father- None Sister- None Sister- None Brother- None Brother- None BrotherSocial HistorySubstance Use Topics- Smoking status: Former Smoker Quit date: 09/21/1995- Smokeless tobacco: Never Used- Alcohol use Yes Comment: occasionalBP 128/84 Pulse 70 Temp 36.6 ?C (97.8 ?F) (Tympanic) Resp 16 Wt 63kg (139 lb) BMI 23.49 kg/m?ObjectivePhysical ExamConstitutional: She is oriented to person, place, and time and well-developed,well-nouris hed, and in no distress.HENT:Head: Normocephalic and atraumatic.Cardiovascular: Normal rate, regular rhythm and normal heart sounds.Pulmonary/Chest: Effort normal and breath sounds normal.Musculoskeletal:Pt has a blister on the right ring finger middle phalanx. No significantredness or sign of cellulitis. No streakingNeurological: She is alert and oriented to person, place, and time.Skin: Skin is warm and dry.Psychiatric: Affect and judgment normal.Nursing note and vitals reviewed. ASSESSMENT/PLAN:1. Insect bite, initial encounter - ICD9: 919.4, E906.4, ICD10: W57.XXXAWill cover with bactroban. Discussed with patient concerning symptoms to go [facility] emergency department or follow up here. Pt agreeable with this plan.DARREN Greenberg-CReferring Provider: SELF [[id number]]Allergies As of Date: 03/26/2018(No Known Allergies)Date Reviewed: 03/26/2018Reviewed by: Shayna Mahoney Ma - Fully AssessedReason for Visit: Insect Bite [929] Cmt: ring finger right hand swollen, burning and itching x 3 daysPrimary Visit Diagnosis:Insect bite, initial encounter [W57.XXXA]Order(s):mupiroc in (BACTROBAN) 2 % creamApply 1 application to affected area three times daily for 10 days. Location: fingerDisp: 15 gRfl: 0Prescriptions as of 03/26/2018 Sig: ALPRAZOLAM 0.5 MG TABLET Take 0.5 mg by mouth at bedti* GÓMEZ ORAL Take by mouth. ALBUTEROL SULFATE HFA 90 MCG/* Inhale 2 Puffs as instructed * CELEXA 20 MG TABLET one tablet daily THERAPEUTIC MULTIVITAMIN TABL* Take one(1) tablet daily. GABRIELA-600 WITH VITAMIN D 600 MG* Take one(1) tablet two(2) dahlia* FOLIC ACID 800 MCG TABLET Take one(1) tablet three time* MUPIROCIN 2 % TOPICAL CREAM Apply 1 application to affect* AMBIEN ORAL Take by mouth.Problem List As Of Date 03/26/2018 Noted Resolved UNSP ABNORMAL MAMMOGRAM [R92.8] INVALID FOR*Prescriptions ordered this encounter Disp Refills Start End MUPIROCIN 2 % TOPICAL CREAM 15 g 0 03/26/2018 04/05/2018 Route: TOPICAL Sig: Apply 1 application to affected area three times daily for 10 days. Location: [place] Number: [id number] Status:Closed by MARGAUX CHANG PA-C on 03/26/18 Normal [facility] PROGRESSon 03-26-2018 Protein mass conc HNO ID: [id number]: Margaux Will (Darren) AthyService: (none)Author Type: Physician AssistantType: Progress NotesFiled: 03/26/2018 4:43 PMNote Text:SubjectiveHPIPt presents with an insect bite on her right fourth finger x 2 days. Ithad gotten more red around it today so she came in for evaluation. Therash is itchy and painful. She was tent camping over the weekend when shenoticed it. No fever or chills. No discharge.Review of SystemsSkin: Rash right ring finger.All other systems reviewed and are negative.PAST MEDICAL HISTORYDiagnosis Date- Mild dysplasia of cervix 2003Current Outpatient Prescriptions:ALPRAZolam (XANAX) 0.5 mg tablet Take 0.5 mg by mouth at bedtime asneeded. Disp: Rfl:FEXOFENADINE HCL (GÓMEZ ORAL) Take by mouth. Disp: Rfl:albuterol HFA (PROVENTIL HFA, VENTOLIN HFA) 90 mcg/actuation inhalerInhale 2 Puffs as instructed every 6 hours as needed. Disp: 1 Inhaler Rfl:0citalopram hydrobromide(CELEXA 20 MG TAB) one tablet daily Disp: Rfl: 0THERAPEUTIC MULTIVITAMIN TAB Take one(1) tablet daily. Disp: Rfl: 0CAL-600 WITH VITAMIN D 600 MG-200 UNIT TAB Take one(1) tablet two(2) timesdaily. Disp: Rfl: 0FOLIC ACID 800 MCG TAB Take one(1) tablet three times daily.+ Disp: Rfl:0mupirocin (BACTROBAN) 2 % cream Apply 1 application to affected area threetimes daily for 10 days. Location: finger Disp: 15 g Rfl: 0ZOLPIDEM TARTRATE (AMBIEN ORAL) Take by mouth. Disp: Rfl:No current facility-administered medications for this visit.PAST SURGICAL HISTORYProcedure Laterality Date- BX BREAST PERC VACUUM/ROTN 07/11/2008 Right - Benign- CERVIX UTERI CONIZA LP ELCTRO EXCI 2002 LEEP-Cervix- LIGATE FALLOPIAN TUBE Tubal ligation- REMOVAL ADENOIDS,PRIMARY,<12 Y/O Adenoidectomy- REMOVAL OF TONSILS,<12 Y/O TonsillectomyFAMILY HISTORYProblem Relation Age of Onset- None Mother- None Father- None Sister- None Sister- None Brother- None Brother- None BrotherSocial HistorySubstance Use Topics- Smoking status: Former Smoker Quit date: 09/21/1995- Smokeless tobacco: Never Used- Alcohol use Yes Comment: occasionalBP 128/84 Pulse 70 Temp 36.6 ?C (97.8 ?F) (Tympanic) Resp 16 Wt 63 kg (139 lb) BMI 23.49 kg/m?ObjectivePhysical ExamConstitutional: She is oriented to person, place, and time andwell-developed, well-nourished, and in no distress.HENT:Head: Normocephalic and atraumatic.Cardiovascular: Normal rate, regular rhythm and normal heart sounds.Pulmonary/Chest: Effort normal and breath sounds normal.Musculoskeletal:Pt has a blister on the right ring finger middle phalanx. No significantredness or sign of cellulitis. No streakingNeurological: She is alert and oriented to person, place, and time.Skin: Skin is warm and dry.Psychiatric: Affect and judgment normal.Nursing note and vitals reviewed. ASSESSMENT/PLAN:1. Insect bite, initial encounter - ICD9: 919.4, E906.4, ICD10: W57.XXXAWill cover with bactroban. Discussed with patient concerning symptoms togo to the emergency department or follow up here. Pt agreeable with thisplan.Margaux Chang PA-C Normal [facility] Encounters Encounter Date Encounter Type Care Provider Facility Start: 03-26-2024 End: 03-26-2024 ambulatory MADY RUFF [facility] Start: 03-26-2024 End: 03-26-2024 ambulatory DRISS OLSON [facility] Start: 03-26-2018 End: 03-27-2018 Patient encounter [facility] Payers Date Payer Category Payer Private Health Insurance [id number] 1965 Unknown [id number] [id number]. [id number] 1965 Unknown [id number] [id number]. [id number] Progress note 03-26-2024 Note Date & Type Note Facility 03-26-2024 Note [facility] [address] [facility] [place] [address] [facility] [id number] Dept: [phone] MD Isabelle Chauhan 59 y.o. female Patient presents with a chief complaint of Dizziness Ht 5' 5 Wt 75.2 kg (165 lb 11.2 oz) BMI 27.57 kg/m History of Presenting Illness: The patient/caregiver reports a history of complaint with the following features: Onset: started initially with brief symptoms 2 weeks, then worse last week when symptoms became constant Timing: now constant Duration: one week Quality: feels lightheaded, off balance, and vertigo Location: feels like inside of head Severity: pain none, but unable to work due to symptoms Risk factors: no history of migraine Alleviating factors: closing eyes,sleep, no relief with meclizine Aggravating factors: bright sunlight, car travel, head movements Associated factors: minimal nausea Was seen in ER, treated for high blood pressure. CT of brain was done. She has a distant history of skull fracture and has cheryl told there is some cervical spine disease. Review of systems covering 10 systems is reviewed and pertinent positives and negatives are noted as above. History reviewed. No pertinent past medical history. Current Outpatient Medications: ALPRAZolam (XANAX) 0.5 MG tablet, Take 1 (one) tablet (0.5 mg total) by mouth Prior to discharge from the hospital ., Disp: , Rfl: calcium carbonate-vitamin D3 600 mg-5 mcg (200 unit) per tablet, Take by mouth ., Disp: , Rfl: CeleXA 20 mg tablet, Take 2 (two) tablets (40 mg total) by mouth daily ., Disp: , Rfl: folic acid (FOLVITE) 800 MCG tablet, Take by mouth ., Disp: , Rfl: meclizine (ANTIVERT) 25 mg tablet, , Disp: , Rfl: therapeutic multivitamin (THERAGRAN) tablet, Take 1 (one) tablet by mouth ., Disp: , Rfl: No Known Allergies History reviewed. No pertinent surgical history. Social History Socioeconomic History Marital status: Tobacco Use Smoking status: Never Smokeless tobacco: Never Substance and Sexual Activity Alcohol use: Yes Drug use: Never History reviewed. No pertinent family history. PHYSICAL EXAM: The patient was examined today 03/26/2024 with findings as follows: CONSTITUTIONAL: General Appearance: well-appearing, nontoxic, alert, no acute distress Communication: understanding at normal conversational tones, normal voicing, speech intelligible HEAD/FACE: Head: atraumatic, normocephalic, no lesions Facial Inspection: no lesions, healthy skin Facial Strength: motor strength normal, symmetric strength, symmetric movement Sinuses: no sinus tenderness Salivary Glands: no enlargements of parotid glands, no tenderness of parotid glands, no masses of parotid glands, clear salivary flow on palpation from Stensen's ducts, no duct stones of Stensen's duct, no enlargement of submandibular glands, no tenderness of submandibular glands, no masses of submandibular glands, clear salivary flow from Arnold's ducts, no stones of Arnold's ducts Temporomandibular Joint: no crepitus with motion, no tenderness on palpation, no trismus, motion symmetric EYES: Pupils: PERRLA, extra-ocular movements intact, no nystagmus, sclera white, no redness of eyes, no watering of eyes EARS: Bilateral External Ears: no pits, no tags Right External Ear: normally formed, no lesions, no mastoid tenderness Left External Ear: normally formed, no lesions, no mastoid tenderness Right External Auditory Canal: normal, healthy skin, no obstructing cerumen, no discharge Left External Auditory Canal: normal, healthy skin, no obstructing cerumen, no discharge Right Tympanic Membrane: normal landmarks, translucent, mobile to pneumatic otoscopy, no perforation Left Tympanic Membrane: normal landmarks, translucent, mobile to pneumatic otoscopy, no perforation Hearing: intact to spoken voice, intact to finger rub, Ron midline, Right Ear: Rinne AC>BC, Left Left Ear: Rinne AC>BC NOSE: Nasal Skin: no lesions, no lacerations, no scars Nasal Dorsum: symmetric with no visible or palpable deformities Nasal Tip: normal symmetric nasal tip, normal nasal valves Nasal Mucosa: normal, pink and moist Septum: not markedly deformed, midline, no exposed vessels, no bleeding, no septal granuloma Turbinates: normal size and conformation Nasopharynx: normal ORAL CAVITY/MOUTH: Lips, teeth, gums: normal lips, normal gums, dentition intact, no dental pain on palpation Oral Mucosa: normal, moist, no lesions Palate: normal hard palate, normal soft palate, symmetric palatal elevation Floor of Mouth: normal floor of mouth Tongue: normal tongue, no lesions, no edema, no masses, normal mucosa, mobile Tonsils: normal tonsils, symmetric, no lesions Posterior pharynx: normal NECK: Neck: no masses, trachea midline, normal range of motion, no cysts or pits, no tenderness to palpation Thyroid: normal thyroid, no enlargement, no tenderness, (more content not included)... [facility] Ambulatory Summary Purpose Family History No Family History Records FoundNo Family History Records Found Advance Directives No Advanced Directives Records FoundNo Advanced Directives Records Found Additional Source Comments INFORMATION SOURCE (unrecogn ized section and content) DATE CREATED AUTHOR 04/03/2018 [facility] DATE CREATED AUTHOR AUTHOR'S ORGANIZ ATION 03/28/2024 [facility] FOR RECORDS PERTAINING TO PATIENTS WHO ARE OR HAVE BEEN ENROLLED IN A CHEMICAL DEPENDENCY/SUBSTANCEABUSE PROGRAM, SOME INFORMATION MAY BE OMITTED. This clinical summary was aggregated from multiple sources. Caution should be exercised in using it in the provision of clinical care. This summary normalizes information from multiple sources, and as a consequence, information in this document may materially change the coding, format and clinical context of patient data. In addition, data may be omitted in some cases. CLINICAL DECISIONS SHOULD BE BASED ON THE PRIMARY CLINICAL RECORDS. [facility] [email or web address] [facility]. provides no warranty or guarantee of the accuracy or completeness of information in this document.
== END | disposition home or self-care (01) ==
LOC: OPBI 07:57
PROVIDERS: PCP Family Medicine; Referring Provider Family Medicine; Visit Provider Family Medicine
DX: Z12.31 Encounter for screening mammogram for malignant neoplasm of breast (principal)
CPT/HCPCS: 77063; 77067

== ENCOUNTER → 2024-06-14 | Outpatient (CLI) | payer OTHER, SELFPAY ==
--- NOTE | 2024-06-14 15:13 | US_ITS ---
STUDY: ULTRASOUND OF THE FEMALE PELVIS - COMPLETE REASON FOR EXAM: Female, 59 years old. post menopausal bleeding TECHNIQUE: Transvaginal and transabdominal imaging. COMPARISON: None. FINDINGS: The uterus is anteverted and is in a midline position. The uterus measures 6.2x5.2 cm. There is a Nabothian cyst of the cervix. The endometrium measures 13 mm in thickness, and is hyperechoic. There is no demonstrated endometrial mass. Myometrium appears heterogeneous and coarse. No discrete lesions. I.U.D. - The patient does not have an I.U.D. The right ovary is visualized. The right ovary measures 2.2 x 1.6 cm. There is no right ovarian cyst or ovarian mass. There is no visualized right adnexal mass or complex lesion. There is normal arterial and normal venous vascularity. The left ovary is visualized. The left ovary measures 2.5 x 2.1 cm. There is no left ovarian cyst or ovarian mass. There is no visualized left adnexal mass or complex lesion. There is normal arterial and normal venous vascularity. There is no fluid in the cul-de-sac. Urinary bladder volume is (in cc) 18.4. US/Pelvic w/ Transvaginal IMPRESSION: There are no acute findings. Electronically Signed: Romero Abdul MD at 21:44 EDT ,
--- OUTSIDE RECORDS SUMMARY | 2024-06-14 16:56 | XMS RPT_ITS | CCD ---
Author Organization [facility] Team Providers Care Pediatric Orthodontist Name Role Phone DRISS OLSON Primary Care [...] Test Name Value Interpretation Reference Range Facility [facility] 03-26-2018 CNOV Office Visit (UCWSTR) ISABELLE RODRIGUEZ ([id number]) 1965 FDate Time Provider Department03/26/18 2:45 PM [...] Discussed with patient concerning symptoms to go [facility] emergency department or follow up here. Pt [...] daily for 10 days. Location: [place] Number: [id number] Status:Closed by MARGAUX CHANG PA-C on 03/26/18 Normal [facility] PROGRESSon 03-26-2018 Protein mass conc HNO ID: [id number]: Margaux Will (Darren) AthyService: (none)Author Type: Physician [...] Pt agreeable with thisplan.Margaux Chang PA-C Normal [facility] Encounters Encounter Date Encounter Type Care Provider Facility Start: 03-26-2024 End: 03-26-2024 ambulatory AMDY RUFF [facility] Start: 03-26-2024 End: 03-26-2024 ambulatory DRISS OLSON [facility] Start: 03-26-2018 End: 03-27-2018 Patient encounter [facility] Payers Date Payer Category Payer Private Health Insurance [id number] 1965 Unknown [id number] [id number] 1965 Unknown [id number] Progress note 03-26-2024 Note Date & Type Note Facility 03-26-2024 Note [facility] [address] [facility] [place] [address] [facility] [id number] Dept: [phone] MD Isabelle Chauhan 59 y.o. female Patient [...] of submandibular glands, clear salivary flow from [place]'s ducts, no stones of [place]'s ducts Temporomandibular Joint: no crepitus with motion, [...] enlargement, no tenderness, (more content not included)... [facility] Summary Purpose Family History No Family History Records FoundNo Family History Records Found Advance Directives No Advanced Directives Records FoundNo Advanced Directives Records Found Additional Source Comments INFORMATION SOURCE (unrecogn ized section and content) DATE CREATED AUTHOR 04/03/2018 [facility] DATE CREATED AUTHOR AUTHOR'S ORGANIZ ATION 03/28/2024 [facility] FOR RECORDS PERTAINING TO PATIENTS WHO ARE [...] BE BASED ON THE PRIMARY CLINICAL RECORDS. [facility] [employer] [facility]. provides no warranty or guarantee of the accuracy or completeness of information in this document.
== END | disposition home or self-care (01) ==
LOC: US 15:10
PROVIDERS: PCP Family Medicine; Referring Provider Family Medicine; Visit Provider Family Medicine
DX: N95.0 Postmenopausal bleeding (principal)
CPT/HCPCS: 76830; 76856

== ENCOUNTER 2024-06-20 14:00 | Outpatient (RCR) | payer OTHER, SELFPAY ==
--- NOTE | 2024-05-23 14:59 | HP.PTEVAL_ITS ---
Patient's Visit Information Visit Information Visit Information: ISABELLE RODRIGUEZ is a 59 year old F referred to Physical Therapy by REBEKA Moya with a diagnosis of L shoulder sprain. Date of Evaluation: 05/23/24 Physical Therapist: Sony Peterson DPT Visit Plan Frequency: 2x /Week Duration: 4 Weeks Plan: 1) phase II wand exercises with focus on regaining full motion 2) Passive end range of motion with inferior and AP GH mobs grade III/IV to aid with improving Gh joint mobility and inferior capsule mobility. 3) phase III RTC strengthening, progressive loading to aid in tissue remodeling. Ice for pain control. 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 HEP at IE: supine wand flexion 2x10 supine wand ER 2x10x5 standing wand extension 2x10 standing wand IR 2x10/ea. movement mid row PTB 2x10 shoulder ER L OTB 2x10 Subjective Subjective: Pt. is here today for her initial evaluation with diagnosis of sprain of L shoulder joint. ~6 weeks ago she tripped over a tackle box and felt on her shoulder. She was initially in a sling, but is now out. She did have an injection ~1 week ago and is now started feeling better. She did have an MRI that showed supraspinatus tendinosis without full thickness tearing. Pt. is finally having increased ROM and has been able to do more. She is still having catching in her arm with certain movements. Pt. is hopeful to reduce symptoms in order to get back to work and increase her strength in her L UE. Pain L shoulder: Pain Intensity (Out of 10): 1 Pain Intensity Range: 0 and 4 Objective Objective: POSTURE: Pt. has decent posture in stance. Pt. has normal shoulder heights, normal head posture,. PALPATION: Pt. has some mild tenderness at anterior sub acromial space. No pain throughout cervical spine. NEURO: normal throughout BUEs. ROM: PROM: L shoulder: flexion 175deg mild increase in pain, ER at 90deg 105deg mild increase in pain, IR at 90deg of abd 50deg mild increase symptoms. AROM: L shoulder: flexion 170deg, abd 170deg, functional ER C5, functional IR L2. t. had to slowly increase her motions as she was anticipating pain. MMT: R shoulder: ER 22.1#, IR 28.1#, flexion 21.1#, abd 19.9#. L shoulder: ER: 11.3#, IR 24.1#, flexion 13.1#, abd 11.9#. Balance/Special Test Scores Quick DASH Score: 56.8175 Goals Goal 1:: LTG: pt. to be with HEP for L shoulder ROM and scapular/periscapular strengthening. Goal Time Frame: 4-6 Weeks Goal 2:: LTG: Pt. to have full L shoulder ROM without increase in symptoms. Goal Time Frame: 4-6 Weeks Goal 3:: LTG: pt. to have symmetrical strength between BUEs. Goal Time Frame: 4-6 Weeks Goal 4:: LTG: Pt. to resume all work related activities without increase in L shoulder pain. Goal Time Frame: 4-6 Weeks Rehabilitation Potential Physical Therapy Diagnosis: Pt. has signs and symptoms consistent with L shoulder sprain. Pt. is doing better since her initial injury, but did have an injection (this has helped a lot). Pt. is still having some issues with her end range of motions and some marked L shoulder/scapular weakness. She would benefit from PT to address the above limitations progressing back to all work and recreational activities without limitations. Rehabilitation Potential: Excellent Anticipated Interventions Patient/Client Instruction: Educate patient on: Condition, Plan of Care, Risk Factors and Benefits of Fitness Program For the Purpose of:: To improve decision making, To facilitate caregiver knowledge, To improve self management, To prevent re-injury, To improve ability to perform tasks related to life management and To improve tolerance to ADL's Therapeutic Exercise to Include: Strength training, Power training, Postural training, Flexibilty training, Passive ROM, Active ROM and Scapular Strength /Stabilization For the Purpose of:: To decrease pain, To increase ROM, To improve nutrient delivery to tissue, To increase oxygenation perfusion, To improve muscle performance and motor function, To improve health of tissue and To decrease soft tissue restriction Manual Therapy Techniques to Include: Mobilization, Passive ROM and Soft tissue mobilization For the Purpose of:: To decrease pain, To increase ROM, To improve nutrient delivery to tissue, To increase oxygenation perfusion and To improve muscle performance and motor function Cryotherapy (ice pack, ice massage): Yes For the Purpose of:: To decrease pain, To increase ROM and To improve nutrient delivery to tissue Text: Thank you for the opportunity to evaluate your patient. For Medicare and Medicare HMO plans, please review the plan of care and approve it. It will need to be FAXED BACK to us at [phone] for Medicare purposes. For Medicare only, by signing this I certify the plan of care. Please let me know if there are questions or concerns regarding this plan of care. Physician Signature: Date:
--- NOTE | 2024-06-20 14:52 | HP.PTREVAL ---
Re-Evaluation Intro: REBEKA Moya, It has been my pleasure to treat ISABELLE RODRIGUEZ over the last 8 visits for L shoulder sprain. Please see the progress note below for an update on the physical therapy plan of care! Subjective Subjective: Pt. reports overall doing very well. She reports no pain, but does have occasional occurrence of catching. Work is going well as well. Objective Objective/Function: PROM: Full L shoulder ROM without increase in symptoms. AROM: Pt. has full L shoulder flexion, functional ER and functional IR. She does report some catching occasionally with flexion and abduction motions. MMT: R shoulder: flexion 18.1#, abd 23.3#, ER 12.1#, IR 19.8#. L shoulder: flexion 17.9#, abd 19.3#, ER 12.8#, IR 18.5#. Pt. has close to symmetrical strength and close to full motion without issues. She is back to work doing overall pretty well. A little sore with lifting, but not too much of an issue. Plan Plan Plan: Pt. to trial all exercises for the next 2 weeks. Overall she is doing well. She is to call back if having issues. If doing well over this time frame I will DC patient back to physician. Balance/Gait/Functional tests Balance/Special Test Scores Quick DASH Score: 2.2725 Goals Goals Goal 1:: LTG: pt. to be with HEP for L shoulder ROM and scapular/periscapular strengthening. Goal Time Frame: 4-6 Weeks Goal Progress: Goal Met Goal 2:: LTG: Pt. to have full L shoulder ROM without increase in symptoms. Goal Time Frame: 4-6 Weeks Goal Progress: Goal Met Goal 3:: LTG: pt. to have symmetrical strength between BUEs. Goal Time Frame: 4-6 Weeks Goal Progress: Goal Met Goal 4:: LTG: Pt. to resume all work related activities without increase in L shoulder pain. Goal Time Frame: 4-6 Weeks Goal Progress: Goal Met Anticipated Interventions Anticipated Interventions Patient/Client Instruction: Educate patient on: Condition, Plan of Care, Risk Factors and Benefits of Fitness Program For the Purpose of:: To improve decision making, To facilitate caregiver knowledge, To improve self management, To prevent re-injury, To improve ability to perform tasks related to life management and To improve tolerance to ADL's Therapeutic Exercise to Include: Strength training, Power training, Postural training, Flexibilty training, Passive ROM, Active ROM and Scapular Strength/Stabilization For the Purpose of:: To decrease pain, To increase ROM, To improve nutrient delivery to tissue, To increase oxygenation perfusion, To improve muscle performance and motor function, To improve health of tissue and To decrease soft tissue restriction Manual Therapy Techniques to Include: Mobilization, Passive ROM and Soft tissue mobilization For the Purpose of:: To decrease pain, To increase ROM, To improve nutrient delivery to tissue, To increase oxygenation perfusion and To improve muscle performance and motor function Cryotherapy (ice pack, ice massage): Yes For the Purpose of:: To decrease pain, To increase ROM and To improve nutrient delivery to tissue Re-Evaluation Ending Re-evaluation ending: Please do not hesitate to contact me at [phone] by phone or if you have questions or concerns regarding this new plan of care! Sincerely, Sony Peterson DPT
== END 2024-06-20 19:00 | disposition home or self-care (01) ==
LOC: PT 14:00
PROVIDERS: PCP Family Medicine; Referring Provider Physician Assistant Surgical; Visit Provider Physician Assistant Surgical
DX: S43.492D Other sprain of left shoulder joint, subsequent encounter (principal)
CPT/HCPCS: 97110; 97140; 97161; 97530

== ENCOUNTER → 2024-07-03 | Outpatient (CLI) | payer OTHER, SELFPAY ==
[2024-07-03] MEDS: Zolpidem Tartrate 5 MG Tablet PO (22:00)
== END | disposition home or self-care (01) ==
LOC: SL 19:59
PROVIDERS: PCP Family Medicine; Referring Provider Nurse Practitioner Acute Care; Visit Provider Nurse Practitioner Acute Care
DX: G47.10 Hypersomnia, unspecified (principal)
CPT/HCPCS: 95810; 95811

== ENCOUNTER → 2024-07-12 | Outpatient (CLI) | payer OTHER, SELFPAY | END | disposition home or self-care (01) | LOC: SL 07:38 | PROVIDERS: PCP Family Medicine; Visit Provider Nurse Practitioner Acute Care | DX: Z46.89 Encounter for fitting and adjustment of other specified devices (principal) ==

== ENCOUNTER → 2024-07-15 | Outpatient (CLI) | payer OTHER, SELFPAY ==
--- NOTE | 2024-07-15 14:14 | CT_ITS ---
STUDY: LOW DOSE CT LUNG CANCER SCREENING REASON FOR EXAM: Female, 59 years old. screening for lung cancer RADIATION DOSAGE (If Supplied By Facility): CTDIvol = ( 3.02 ) mGy, DLP = ( 92.52 ) mGycm TECHNIQUE: No contrast was administered. Low dose technique was utilized (average mAS-38 and kVp 120). 1.25 mm axial source images with a slice interval of 1.25-mm were reconstructed in lung windows. 2.5 mm axial source images with a slice interval of 2.5-mm were reconstructed in lung windows. 5.0 mm axial source images with a slice interval of 5.0-mm were reconstructed in soft tissue windows. COMPARISON: 07/11/2023 Emphysema: Mild emphysema. No noncalcified nodule or mass. Endobronchial lesion: None Aorta: No thoracic aortic aneurysm. CORONARY ARTERIES: Coronary artery calcification is not seen. Heart: No cardiomegaly. Pulmonary artery: Normal Mediastinal nodes: Normal Other chest and abdominal findings: None CT/Low Dose CT Lung Screening IMPRESSION: Lung-RADS category 1 - Continue annual screening with LDCT in 12 months. IMPORTANT NOTES FOR USE: ACR Lung-RADS Version 1.1 Assessment Categories Release Date: 2018 Category: Coded 0-4 bases on nodule(s) with highest degree of suspicion. Negative screen is defined as categories 1 and 2; a positive screen is defined as categories 3 and 4. Category 3 and 4A nodules that are unchanged on interval CT should be coded as category 2, and individuals returned to screening in 12 months. Category 4X: Category 3 or 4 nodules with additional imaging findings that increase the suspicion of lung cancer, such as spiculation, GGN that doubles in size in 1 year, enlarged lymph notes, etc. Category Modifiers: S (significant finding unrelated to lung cancer) Electronically Signed: Low Ramsey MD at 9:09 EST ,
== END | disposition home or self-care (01) ==
LOC: CT 14:14
PROVIDERS: PCP Family Medicine; Referring Provider Family Medicine; Visit Provider Family Medicine
DX: Z12.2 Encounter for screening for malignant neoplasm of respiratory organs (principal)
CPT/HCPCS: 71271

== ENCOUNTER → 2025-05-16 | Outpatient (CLI) | payer OTHER, SELFPAY ==
--- OUTSIDE RECORDS SUMMARY | 2025-05-16 19:51 | XMS RPT_ITS | CCD ---
Author Organization [facility] Care Team Providers Care [address] Monkey Name Role Phone Dr. Denise Renee Primary Care Provider Dr. Denise Renee Referring Provider [phone] DARREN Alcantara Attending Provider DARREN Inman Attending Provider Dr. Denise Renee Primary Care Provider Dr. Walker Garrett Attending Provider COLTON Pond Referring Provider Dr. Denise Renee Primary Care Provider Ellyn Hooks Attending Provider Unavailable Dr. Denise Renee Referring Provider Dr. Walker Garrett Attending Provider Dr. Walker Garrett Other Provider COLTON Floyd Attending Provider DENISE RENEE Primary Care Unavailable ORAL NICOLE Attending Unavailable MADY RUFF Attending Unavailable DENISE RENEE Primary Care Unavailable Harriet AYALA-CKimberly Attending Provider Harriet DRILL DOCTOR, Kimberly Attending Unavailable Jolliff, Denise S Referring Unavailable Larios DRILL DOCTOR, Kimberly Attending Unavailable Jolliff, Denise S Referring Unavailable Jolliff, Denise S Primary Care Unavailable Larios DRILL DOCTOR, Kimberly Attending Unavailable Jolliff, Denise S Referring Unavailable Antonieta Galloway NP Attending Unavailable Jolliff, Denise S Referring Unavailable Jolliff, Denise S Primary Care Unavailable Larios DRILL DOCTOR, Kimberly Attending Unavailable Jolliff, Denise S Primary Care Unavailable Larios DRILL DOCTOR, Kimberly Attending Unavailable Harriet DRILL DOCTOR, Kimberly Referring Unavailable Jolliff, Denise S Attending Unavailable Jolliff, Denise S Primary Care Unavailable Care Physician, No Primary Primary Care Unava ilable Assessment, Health Risk Attending Unavaila ble Assessment, Health Risk Referring Unavaila ble Care Physician, No Primary Primary Care Unava ilable Harriet DRILL DOCTOR, Kimberly Referring Unavailable Harriet DRILL DOCTOR, Kimberly Attending Unavailable Jolliff, Denise S Referring Unavailable Jolliff, Denise S Primary Care Unavailable Jolliff, Denise S Attending Unavailable Jolliff, Denise S Attending Unavailable Jolliff, Denise S Referring Unavailable Jolliff, Denise S Primary Care Unavailable Jolliff, Denise S Attending Unavailable Jolliff, Denise S Referring Unavailable Jolliff, Denise S Primary Care Unavailable Urusla Herzog Referring Unavailable Jolliff, Denise S Primary Care Unavailable Ursula Herzog Attending Unavailable Jolliff, Denise S Primary Care Unavailable Harriet DRILL DOCTOR, Kimberly Attending Unavailable Jolliff, Denise S Attending Unavailable Jolliff, Denise S Referring Unavailable Jolliff, Denise S Primary Care Unavailable Harriet DRILL DOCTOR, Kimberly Attending Unavailable Medications Current Medications Medication Drug Class(es) Dates Sig (Normalized) Sig (Original) ALPRAZolam 0.5 mg oral tablet (19 sources) Benzodiazepine Start: 10-15-2020 End: 08-17-2023 take 1 tablet by mouth at bedtime as needed for anxiety Alprazolam 0.5 mg tablet Active 0.5 mg PO AT BEDTIME NEEDED as needed for Anxiety August 17, 2023 2:12pm Start: 08-10-2017 End: 10-26-2018 Alprazolam (Xanax) 1 mg tabl et Discontinued 0.5 mg PO NEEDED as needed for Anxiety August 10, 2017 1:00am October 26, 2018 2:14pm ascorbic acid 500 mg oral tablet (8 sources) Vitamin C Start: 09-04-2017 take 1 tablet by mouth at bedtime Ascorbic Acid (Vitamin C) 500 MG tablet Active 500 mg PO AT BEDTIME September 04, 2017 1:00am cholecalciferol 0.05 mg oral capsule (8 sources) Vitamin D Start: 09-04-2017 take 1 capsule by mouth at bedtime Cholecalciferol (Vitamin D3) 2,000 UNIT capsule Active 2000 U PO AT BEDTIME September 04, 2017 1:00am citalopram 40 mg oral tablet (11 sources) Serotonin Reuptake Inhibitor Start: 03-04-2024 take 1 tablet by mouth once daily Citalopram 40 mg tablet Active 40 mg PO DAILY March 04, 2024 12:00am Start: 01-26-2015 End: 08-17-2023 take 2 tablets by mouth at bedtime Citalopram 20 MG tablet Discontinued 40 mg PO AT BEDTIME January 26, 2015 12:00am August 17, 2023 1:48pm Start: 01-26-2015 End: 08-17-2023 take 40 mg by mouth at bedtime Citalopram Active 40 MG PO AT BEDTIME August 17, 2023 1:43pm ferrous sulfate 325 mg oral tablet (8 sources) Start: 01-26-2015 take 1 tablet by mouth at bedtime Ferrous Sulfate 325 MG tablet Active 325 mg PO AT BEDTIME January 26, 2015 12:00am fexofenadine hydrochloride 180 mg oral tablet (1 source) Histamine-1 Receptor Antagonist Start: 02-26-2025 take 1 tablet by mouth once daily Fexofenadine (Allergy Relief (Fexofenadine)) 180 mg tablet Active 180 mg PO daily February 26, 2025 12:00am folic acid 0.8 mg oral tablet (8 sources) Start: 01-26-2015 take 2 tablets by mouth at bedtime Folic Acid 0.8 MG tablet Active 1.6 mg PO AT BEDTIME January 26, 2015 12:00am Start: 01-26-2015 take 1.6 mg by mouth at bedtim e Folic Acid Active 1.6 MG PO AT BEDTIME January 26, 2015 12:00am Start: 01-26-2015 take 0.8 mg by mouth at bedtim e Folic Acid Active 0.8 MG PO AT BEDTIME January 25, 2015 11:00pm Ipratropium [place] 42 mcg (0.06 %) spray,non-aerosol (1 source) Start: 02-26-2025 Ipratropium Br omide 42 mcg (0.06 %) spray,non-aerosol Active 2 NMA INTRANASAL 4 TIMES DAILY as needed February 26, 2025 12:00am Lactobacillus Combination No.4 (Probiotic) 3 billion cell capsule (3 sources) Start: 08-17-2023 take 3 capsules by mouth once daily Lactobacillus Combination No.4 (Probiotic) 3 billion cell capsule Active 3000 NMA PO DAILY August 17, 2023 1:00am administer with a meal Start: 08-17-2023 take 3 capsules by m outh once daily Lactobacillus Combination No.4 (Probiotic) 3 billion cell capsule Active 3000 MMU CELLS PO DAILY August 17, 2023 1:00am administer with a meal loperamide hydrochloride 2 mg oral capsule (3 sources) Opioid Agonist Start: 08-17-2023 take 1 capsule by mouth every eight hours as needed Loperamide (Imodium A-D) 2 mg capsule Active 2 mg PO Q8H as needed for loose stool August 17, 2023 1:00am losartan potassium 100 mg oral tablet (2 sources) Angiotensin 2 Receptor Valentina Start: 09-24-2024 take 1 tablet by mouth once daily Losartan 100 mg tablet Active 100 mg PO DAILY September 24, 2024 1:00am Start: 06-24-2024 End: 09-24-2024 Losartan 50 mg tablet Discon tinued mg PO June 24, 2024 1:00am September 24, 2024 12:26pm meclizine hydrochloride 25 mg oral tablet (1 source) Antiemetic Start: 03-20-2024 take 1 tablet by mouth four times daily as needed for dizziness Meclizine 25 mg tablet Active 25 mg PO 4 TIMES DAILY NEEDED as needed for Dizziness 20 0 March 20, 2024 12:00am mecobalamin 1 mg chewable tablet (3 sources) Start: 08-17-2023 take 1 tablet by mouth once daily Mecobalamin (Vitamin B12) 1,000 mcg tablet,chewable Active 1000 ug PO DAILY August 17, 2023 1:00am melatonin 5 mg oral capsule (11 sources) Start: 11-02-2023 take 1 capsule by mouth at bedtime Melatonin 5 mg capsule Active 5 mg PO AT BEDTIME November 02, 2023 12:00am Start: 10-15-2020 End: 11-02-2023 take 1 tablet by mouth at bedtime Melatonin-Pyridoxine Hcl (B6) 1 EACH tablet Discontinued 2 NMA PO AT BEDTIME October 15, 2020 1:00am November 02, 2023 3:39pm Start: 10-15-2020 End: 11-02-2023 Melatonin-Pyridoxine Hcl (B6 ) Discontinued 2 EACH PO AT BEDTIME October 15, 2020 1:00am November 02, 2023 3:39pm Multivitamin With Folic Acid (7 sources) Start: 01-26-2015 take 1 tablet by mouth once daily Multivitamin With Folic Acid Active 1 TABLET PO DAILY January 26, 2015 1:24pm Start: 01-26-2015 take 1 tablet by sandi th once daily Multivitamin With Folic Acid Active 1 TABLET PO DAILY January 25, 2015 11:00pm Start: 01-26-2015 take 1 tablet by sandi th once daily Multivitamin With Folic Acid Active 1 TABLET PO DAILY January 26, 2015 12:00am Multivitamin With Folic Acid 1 TABLET tablet (1 source) Start: 01-26-2015 take 1 tablet by mouth once daily Multivitamin With Folic Acid 1 TABLET tablet Active 1 {tbl} PO DAILY January 26, 2015 12:00am pramipexole dihydrochloride 0.125 mg oral tablet (4 sources) Nonergot Dopamine Agonist Start: 02-26-2025 take 2 tablets by mouth at bedtime Pramipexole 0.125 mg tablet Active 0.25 mg PO AT BEDTIME 60 1 February 26, 2025 11:05am Start: 08-17-2023 End: 02-26-2025 take 1 tablet by mouth at bedtime Pramipexole 0.125 mg tablet Discontinued 0.125 mg PO AT BEDTIME August 17, 2023 1:00am February 26, 2025 11:05am psyllium 3400 mg powder for oral suspension (3 sources) Start: 08-17-2023 Psyllium Husk (With Sugar) (Metamucil (With Sugar)) 3.4 gram powder in packet Active 1 tbsp PO DAILY August 17, 2023 1:00am Zinc (3 sources) Start: 11-02-2023 take 1 capsule by mouth once daily Zinc 50 mg capsule Active 50 mg PO DAILY November 02, 2023 12:00am Start: 11-02-2023 take 50 mg by mouth once daily Zinc Active 50 MG PO DAILY November 02, 2023 12:00am Completed/Discontinued Medications Medication Drug Class(es) Dates Sig (Normalized) Sig (Original) acetaminophen 325 mg / HYDROcodone bitartrate 5 mg oral tablet (20 sources) Opioid Agonist Start: 03-04-2024 End: 06-24-2024 Hydrocodone-Acetami nophen 5-325 mg tablet Discontinued 1 {tbl} PO EVERY 6 HOURS NEEDED as needed for Pain 10 3 0 March 04, 2024 June 24, 2024 9:24am Flank pain Unspecified abdominal pain Start: 02-18-2023 End: 08-17-2023 Hydrocodone-Acetaminophen 5- 325 mg tablet Discontinued 1 {tbl} PO EVERY 4 HOURS NEEDED as needed for Pain 10 2 0 February 18, 2023 August 17, 2023 1:58pm Sprain of left foot Unspecified sprain of left foot, initial encounter Start: 02-18-2023 End: 08-17-2023 take 1 tablet by mouth every four hours as needed Hydrocodone-Acetaminophen Discontinued 1 TABLET PO EVERY 4 HOURS NEEDED 10 2 February 18, 2023 August 17, 2023 1:58pm Start: 10-18-2020 End: 10-21-2020 Hydrocodone-Acetaminophen 1 TABLET tablet Discontinued 1 {tbl} PO EVERY 6 HOURS NEEDED as needed for Pain 10 3 0 October 18, 2020 October 20, 2020 1:00am October 21, 2020 1:03am Contusion of rib on right side Contusion of right front wall of thorax, initial encounter Start: 10-18-2020 End: 10-21-2020 take 1 tablet by mouth every six hours as needed Hydrocodone-Acetaminophen Discontinued 1 TABLET PO EVERY 6 HOURS NEEDED 10 3 October 18, 2020 October 21, 2020 1:03am Start: 12-30-2018 End: 01-02-2019 Hydrocodone-Acetaminophen 1 TABLET tablet Discontinued 1 {tbl} PO EVERY 6 HOURS NEEDED as needed for Pain 6 3 0 December 30, 2018 12:00am January 01, 2019 12:00am January 02, 2019 12:06am Sprain of knee Sprain of unspecified site of unspecified knee, initial encounter Start: 12-30-2018 End: 01-02-2019 take 1 tablet by mouth every six hours as needed Hydrocodone-Acetaminophen Discontinued 1 TABLET PO EVERY 6 HOURS NEEDED 6 3 December 30, 2018 12:00am January 02, 2019 12:06am acetaminophen 325 mg / oxyCODONE hydrochloride 5 mg oral tablet (8 sources) Opioid Agonist Start: 04-06-2015 End: 08-10-2017 Oxycodone-Acetaminophen 1 TABLET tablet Discontinued 1 - 2 {tbl} PO EVERY 4 HOURS NEEDED as needed for Abdominal Pain April 06, 2015 12:00am August 10, 2017 3:39pm Start: 04-06-2015 End: 08-10-2017 take 1 tablet by mouth every four hours as needed Oxycodone-Acetaminophen Discontinued 1 - 2 TABLET PO EVERY 4 HOURS NEEDED April 06, 2015 12:00am August 10, 2017 3:39pm ibuprofen 800 mg oral tablet (8 sources) Nonsteroidal Anti-inflammatory Drug Start: 04-06-2015 End: 08-10-2017 take 1 tablet by mouth three times daily as needed for pain Ibuprofen 800 MG tablet Discontinued 800 mg PO 3 TIMES DAILY NEEDED as needed for Abdominal Pain 30 April 06, 2015 12:00am August 10, 2017 3:39pm methylPREDNISolone 4 mg oral tablet (7 sources) Corticosteroid Start: 03-31-2022 End: 04-06-2022 take 1 tablet by mouth once Methylprednisolone (Medrol (Jose A)) 4 mg tablets,dose pack Discontinued 4 mg PO per package directions 21 6 0 March 31, 2022 12:00am April 05, 2022 12:00am April 06, 2022 12:06am traMADol hydrochloride 50 mg oral tablet (8 sources) Opioid Agonist Start: 10-15-2020 End: 10-18-2020 take 1 tablet by mouth every four hours as needed for pain Tramadol 50 MG tablet Discontinued 50 mg PO EVERY 4 HOURS NEEDED as needed for Pain 18 3 October 15, 2020 1:00am October 17, 2020 1:00am October 18, 2020 1:03am Fracture of rib Fracture of one rib, unspecified side, initial encounter for closed fracture zolpidem tartrate 10 mg oral tablet (8 sources) gamma-Aminobutyric Acid-ergic Agonist Start: 01-26-2015 End: 08-10-2017 take 1 tablet by mouth at bedtime Zolpidem 10 MG tablet Discontinued 10 mg PO AT BEDTIME January 26, 2015 12:00am August 10, 2017 3:39pm Problems Active Problems Problem Classification Problem Date Documented Date Episodic/Chronic Abdominal pain (4 sources) Abdominal pain; Translations: [Unspecified abdominal pain] 11-08-2023 Episodic Comment on above: Patient returned to further discuss her results. Her CBC revealed to be unremarkable with a Hgb of 14.5, which remains stable from May of 2023. WBC is normal. Chemistry is unremarkable. KUB demonstrated a moderate amount of stool within the colon, no free air noted. I have discussed these results with Dr. Garrett. Patient's vitals are normal. Recommend taking Miralax 2 capfuls today and an enema. If no results, perform an additional enema later in the evening. She will call our office tomorrow morning with a progress report. Patient will bring in [facility] paperwork for work as she was scheduled today and tomorrow for work and will not be able to work her full shifts. Our office will write her off for today and tomorrow. Anxiety disorders (8 sources) Anxiety; Translations: [Anxiety disorder, unspecified] 10-15-2020 Chronic Conditions associated with dizziness or vertigo (4 sources) Dizziness and giddiness; Translations: [Lightheadedness] Onset: 03-26-2024 Episodic Menopausal disorders (1 source) Postmenopausal bleeding; Translations: [Postmenopausal bleeding] Onset: 07-04-2024 Chronic Menstrual disorders (8 sources) Menorrhagia; Translations: [Excessive and frequent menstruation with regular cycle] 09-05-2017 Chronic Mood disorders (8 sources) Depressive disorder; Translations: [Depression] 10-15-2020 Chronic Other circulatory disease (1 source) Elevated blood-pressure reading without diagnosis of hypertension; Translations: [Elevated blood-pressure reading, without diagnosis of hypertension] 03-28-2024 Episodic Other connective tissue disease (8 sources) Lateral epicondylitis; Translations: [Lateral epicondylitis, unspecified elbow] 09-05-2017 Episodic Other connective tissue disease (8 sources) Muscle pain; Translations: [Myalgia, unspecified site] 09-05-2017 Episodic Other connective tissue disease (8 sources) Myositis; Translations: [Myositis, unspecified] 09-05-2017 Episodic Other ear and sense organ disorders (2 sources) Sensorineural hearing loss, bilateral; Translations: [Sensorineural hearing loss, bilateral] Onset: 03-26-2024 Chronic Other fractures (8 sources) Closed fracture of rib; Translations: [Fracture of one rib, right side, initial encounter for closed fracture] 10-16-2020 Episodic Other injuries and conditions due to external causes (1 source) Other specified injuries of thorax, initial encounter; Translations: [Contusion of rib on right side] 10-19-2020 Episodic Other nutritional; endocrine; and metabolic disorders (2 sources) Body mass index 25-29 - overweight; Translations: [Overweight] 06-24-2024 Episodic Other upper respiratory infections (8 sources) Acute upper respiratory infection; Translations: [Acute upper respiratory infection, unspecified] 10-26-2018 Episodic Rehabilitation care; fitting of prostheses; and adjustment of devices (1 source) Encounter for fitting and adjustment of other specified devices; Translations: [Encounter for fitting and adjustment of other specified devices] Onset: 08-07-2024 Chronic Residual codes; unclassified (2 sources) Obstructive sleep apnea syndrome; Translations: [Obstructive sleep apnea (adult) (pediatric)] 09-24-2024 Chronic Comment on above: AHI of 21.7 Residual codes; unclassified (1 source) Daytime hypersomnia; Translations: [Hypersomnia, unspecified] 06-24-2024 Chronic Residual codes; unclassified (2 sources) Obstructive sleep apnea (adult) (pediatric); Translations: [Obstructive sleep apnea (adult) (pediatric)] Onset: 11-19-2024 Chronic Residual codes; unclassified (1 source) Hypersomnia, unspecified; Translations: [Hypersomnia, unspecified] Onset: 07-31-2024 Chronic Residual codes; unclassified (8 sources) History of adenoidectomy; Translations: [Acquired absence of other organs] 09-05-2017 Episodic Sprains and strains (15 sources) Strain of tendon of foot and ankle; Translations: [Strain of unspecified muscle and tendon at ankle and foot level, right foot, initial encounter] Episodic Superficial injury; contusion (16 sources) Contusion of elbow; Translations: [Contusion of unspecified elbow, initial encounter] 10-15-2020 Episodic Past or Other Problems Problem Classification Problem Date Documented Da te Episodic/Chronic Other nutritional; endocrine; and metabolic disorders (1 source) Overweight; Translations: [Overweight] Onset: 11-19-2024 Episodic Other screening for suspected conditions (not mental disorders or infectious disease) (16 sources) Patient encounter status; Translations: [Encounter for screening for malignant neoplasm of colon] Onset: 06-26-2024 10-15-2020 Episodic Results Test Name Value Interpretation Reference Range Facility CBC, [employer] 05-13-2025 Absolute Lymph 2.32 X10 3/uL Normal 0.83-4.51 [facility] Comment on above: Performed By: #### L 500.2900, L100.0200, L400.0100 #### [facility] [address] [place], [address] Absolute Neut 4.1 X10 3/uL Normal 2.0-7.7 [facility] Comment on above: Performed By: #### L 500.2900, L100.0200, L400.0100 #### [facility] [address] [place], [address] Basophils/100 WBC (Bld) 0.7 % Normal 0-1 [facility] Comment on above: Performed By: #### L 500.2900, L100.0200, L400.0100 #### [facility] [address] [place], [address] Eosinophils/100 WBC (Bld) 3.9 % Normal 0-5 [facility] Comment on above: Performed By: #### L 500.2900, L100.0200, L400.0100 #### [facility] [address] [place], [address] Erythrocyte distribution width (RBC) [Ratio] 13.0 % Normal 11.6-14.6 [facility] Comment on above: Performed By: #### L 500.2900, L100.0200, L400.0100 #### [facility] [address] [place], [address] Hematocrit (Bld) [Volume fraction] 42.6 % Normal 37-47 [facility] Comment on above: Performed By: #### L 500.2900, L100.0200, L400.0100 #### [facility] [address] [place], [address] Hemoglobin (Bld) [Mass/Vol] 13.9 g/dL Normal 12.0-15.0 [facility] Comment on above: Performed By: #### L 500.2900, L100.0200, L400.0100 #### [facility] [address] [place], [address] Lymphocytes/100 WBC (Bld) 31.4 % Normal 19-41 [facility] Comment on above: Performed By: #### L 500.2900, L100.0200, L400.0100 #### [facility] [address] [place], [address] MCH (RBC) [Entitic mass] 31.0 pg Normal 27.0-32.0 [facility] Comment on above: Performed By: #### L 500.2900, L100.0200, L400.0100 #### [facility] [address] [place], [address] MCHC (RBC) [Mass/Vol] 32.6 g/dL Normal 32-36 [facility] Comment on above: Performed By: #### L 500.2900, L100.0200, L400.0100 #### [facility] [address] [place], [address] MCV (RBC) [Entitic vol] 95.1 fL Normal 81-99 [facility] Comment on above: Performed By: #### L 500.2900, L100.0200, L400.0100 #### [facility] [address] [place], [address] Monocytes/100 WBC (Bld) 8.4 % Normal 0-10 [facility] Comment on above: Performed By: #### L 500.2900, L100.0200, L400.0100 #### [facility] [address] [place], [address] Neutrophils/100 WBC (Bld) 55.1 % Normal 47-70 [facility] Comment on above: Performed By: #### L 500.2900, L100.0200, L400.0100 #### [facility] [address] [place], [address] NRBC # 0.00 10 3/uL Normal 0-5 [facility] Comment on above: Performed By: #### L 500.2900, L100.0200, L400.0100 #### [facility] [address] [place], [address] Nucleated RBC (Bld) [#/Vol] 0 10*3/uL Normal 0-5 [facility] Comment on above: Performed By: #### L 500.2900, L100.0200, L400.0100 #### [facility] [address] [place], [address] Platelet mean volume (Bld) [Entitic vol] 10.9 fL Normal 6.2-12.0 [facility] Comment on above: Performed By: #### L 500.2900, L100.0200, L400.0100 #### [facility] [address] [place], [address] Platelets (Bld) [#/Vol] 248 10*3/uL Normal 150-450 [facility] Comment on above: Performed By: #### L 500.2900, L100.0200, L400.0100 #### [facility] [address] [place], [address] RBC (Bld) [#/Vol] 4.48 10*6/uL Normal 4.2-5.4 [facility] Comment on above: Performed By: #### L 500.2900, L100.0200, L400.0100 #### [facility] [address] [place], [address] RDW SD 45.1 fl High 35.1-43.9 [facility] Comment on above: Performed By: #### L 500.2900, L100.0200, L400.0100 #### [facility] [address] [place], [address] WBC (Bld) [#/Vol] 7.4 10*3/uL Normal 4.4-11.0 [facility] Comment on above: Performed By: #### L 500.2900, L100.0200, L400.0100 #### [facility] [address] [place], [address] [employer] CHOL:HDL 3.20 Normal [facility] Comment on above: Performed By: #### L 500.2900, L100.0200, L400.0100 #### [facility] [address] [place], [address] Cholesterol [Mass/Vol] 171 mg/dL Normal <=200 [facility] Comment on above: Result Comment: Chol esterol level, Desirable <200 mg/dL Borderline high cholesterol 200-239 mg/dL High cholesterol >=240 mg/dL Recommendations of the NCEP Adult Treatment Panel for the following risk-cutoff thresholds for the [place] population. Performed By: #### L 500.2900, L100.0200, L400.0100 #### [facility] [address] [place], [address] Cholesterol in HDL [Mass/Vol] 54 mg/dL Normal [facility] Comment on above: Result Comment: [place]oh[place] onal Cholesterol Education Program (NCEP) guidelines: <40 mg/dL: Low HDL-cholesterol (major risk factor for CHD) >= 60 mg/dL: High HDL-cholesterol (negative risk factor for CHD) HDL-cholesterol is affected by a number of factors, e.g. smoking, exercise, hormones, sex and age. Performed By: #### L 500.2900, L100.0200, L400.0100 #### [facility] [address] [place], [address] Cholesterol in LDL [Mass/Vol] 85 mg/dL Normal [facility] Comment on above: Result Comment: Bord bicnrh=438-187 mg/dL Higher Wqwb=231 mg/dL or greater Friedwald Equation for LDL-C Performed By: #### L 500.2900, L100.0200, L400.0100 #### [facility] [address] [place], [address] Cholesterol in VLDL [Mass/Vol] 33 mg/dL Normal 5-40 [facility] Comment on above: Performed By: #### L 500.2900, L100.0200, L400.0100 #### [facility] [address] [place], [address] LDH 171 U/L Normal 84-246 [facility] Comment on above: Performed By: #### L 500.2900, L100.0200, L400.0100 #### [facility] [address] [place], [address] Phosphate [Mass/Vol] 2.8 mg/dL Normal 2.7-4.5 [facility] Comment on above: Performed By: #### L 500.2900, L100.0200, L400.0100 #### [facility] [address] [place], [address] Triglyceride [Mass/Vol] 165 mg/dL Normal [facility] Comment on above: Result Comment: The drugs N-Acetylcysteine and Metamizole may falsely depress this assay. Normal range: <150 mg/dL Borderline High: 150-199 mg/dL High: 200-499 mg/dL Very High: >500 mg/dL Performed By: #### L 500.2900, L100.0200, L400.0100 #### [facility] [address] [place], [address] URIC 5.1 mg/dL Normal 2.6-6.0 [facility] Comment on above: Result Comment: The drugs N-Acetylcysteine and Metamizole may falsely depress this assay. Performed By: #### L 500.2900, L100.0200, L400.0100 #### [facility] [facility] [address] [place], [address] Urinalysis, Employeeon 05-13 BILIRUBIN URINE Normal Negative [facility] Comment on above: Order Comment: Urine , Random Result Comment: JUST WANT BLOODWORK Performed By: #### L 500.2900, L100.0200, L400.0100 #### [facility] [address] [place], [address] Clarity (U) Normal Clear [facility] Comment on above: Order Comment: Urine , Random Result Comment: JUST WANT BLOODWORK Performed By: #### L 500.2900, L100.0200, L400.0100 #### [facility] [address] [place], [address] Color (U) Normal Yellow [facility] Comment on above: Order Comment: Urine , Random Result Comment: JUST WANT BLOODWORK Performed By: #### L 500.2900, L100.0200, L400.0100 #### [facility] [address] [place], [address] GLUCOSE, UR Normal Normal [facility] Comment on above: Order Comment: Urine , Random Result Comment: JUST WANT BLOODWORK Performed By: #### L 500.2900, L100.0200, L400.0100 #### [facility] [address] [place], [address] KETONE UR Normal Negative [facility] Comment on above: Order Comment: Urine , Random Result Comment: JUST WANT BLOODWORK Performed By: #### L 500.2900, L100.0200, L400.0100 #### [facility] [address] [place], [address] LEUK ESTERASE Normal Negative [facility] Comment on above: Order Comment: Urine , Random Result Comment: JUST WANT BLOODWORK Performed By: #### L 500.2900, L100.0200, L400.0100 #### [facility] [address] [place], [address] Nitrite Ql (U) Normal Negative [facility] Comment on above: Order Comment: Urine , Random Result Comment: JUST WANT BLOODWORK Performed By: #### L 500.2900, L100.0200, L400.0100 #### [facility] [address] [place], [address] OCCULT BLOOD-UR Normal Negative [facility] Comment on above: Order Comment: Urine , Random Result Comment: JUST WANT BLOODWORK Performed By: #### L 500.2900, L100.0200, L400.0100 #### [facility] [address] [place], [address] pH UR Normal 5.0 - 8.0 [facility] Comment on above: Order Comment: Urine , Random Result Comment: JUST WANT BLOODWORK Performed By: #### L 500.2900, L100.0200, L400.0100 #### [facility] [address] [place], [address] PROT DIPSTX Normal Negative [facility] Comment on above: Order Comment: Urine , Random Result Comment: JUST WANT BLOODWORK Performed By: #### L 500.2900, L100.0200, L400.0100 #### [facility] [address] [place], [address] SP.GR. DIPSTX Normal 1.002-1.030 [facility] Comment on above: Order Comment: Urine , Random Result Comment: JUST WANT BLOODWORK Performed By: #### L 500.2900, L100.0200, L400.0100 #### [facility] [address] [place], [address] UR Preservative Normal [facility] Comment on above: Order Comment: Urine , Random Result Comment: JUST WANT BLOODWORK Performed By: #### L 500.2900, L100.0200, L400.0100 #### [facility] [address] [place], [address] UROBILI Normal Normal [facility] Comment on above: Order Comment: Urine , Random Result Comment: JUST WANT BLOODWORK Performed By: #### L 500.2900, L100.0200, L400.0100 #### [facility] [address] [place], [address] Pulmonary Visit Reporton Pulmonary Visit Report [facility] [place] [address] [place] [address] OFFICE VISIT Date of Service: 02/26/25 MR#: [id number] Acct: [id number] Name: PAMELA RODRIGUEZ Rep #: [id number] : 1965 Provider: CRISTINA Larios Age/Sex: 60/F Location: [facility] [place] Status: Signed Assessment and Plan Assessment and Plan (1) NIESHA (obstructive sleep apnea): Status: Chronic Comment: AHI of 21.7 Plan: She is using and benefiting from Pap therapy. She continues to experience an elevated AHI. She has noticed that restless leg is worse, even with compliance with recommended therapy. I am going to increase the dose of pramipexole to 0.25 mg 2 hours before bedtime. The patient was instructed very specifically to make sure that she takes the medication early enough to be effective so that she can sleep. Contact the office for any new or worsening symptoms in the meantime. Follow-up in 6 weeks to reevaluate compliance report and symptoms. If an elevated AHI remains the patient will likely require a retitration study. (2) Overweight (BMI 25.0-29.9): Status: Chronic Plan: Complicates exam, plan, care and prognosis. Continue to encourage healthy weight loss. (3) Nicotine abuse: Status: Chronic Comment: She quit smoking cigarettes 3 years ago. She smoked 1/2 to 1 pack/day for about 25 years, however she does note a 15-year smoking cessation that occurred prior to her most recent quit date. Plan: Encourage vape cessation. (4) Seasonal allergies: Status: Acute Plan: She feels that the elevated residual AHI is related to sinus congestion from seasonal allergies. She reports that she will be consistent with taking Lupe daily between now and her 6-week follow- up. We will reevaluate her residual AHI and determine if the patient requires a retitration study or more medication management of the seasonal allergies. I suggested a referral to ENT, the patient does not want to proceed with that at this time. Medications: Changed From pramipexole 0.125 mg PO QHS To pramipexole 0.25 mg (2 x 0.125 mg) PO QHS 60 tabs 1RF Plan Details Additional Comments: This note was generated with [employer] dictation software. It may contain incorrect words, spelling, and punctuation that were not noted in checking the note before signing. Follow Up: 6 Weeks HPI 3 M FU Chief Complaint: sleep apnea HPI Comments Details: This patient presents to the office today for follow-up of her obstructive sleep apnea. She is ambulatory and on room air. She has not recently been seen in the ED or urgent care for any respiratory problems. She has not required antibiotics or prednisone for breathing issues. She currently vapes nicotine. She does not qualify for an LDCT. She denies any difficulty with shortness of breath. She denies any cough, sputum production or hemoptysis. She denies any wheezing, chest tightness, chest pain or palpitations. She also denies any fever, chills or body aches. She continues to experience sinus congestion. She recently picked up an antihistamine but has not been consistent with use. She feels rested. She is noticing that her legs seem a more restless, even though she takes pramipexole nightly. She admits that sometimes she does not remember to take it until just before bedtime. She is not having difficulty with dry mouth or morning headaches. She denies nocturia. She is not snoring through the device or having difficulty with mask leaks. Compliance report for the past 30 days shows 100% compliance and average use of 7 hours and 42 minutes per night. Current setting is CPAP 7 cmH2O with a residual AHI of 10 events per hour. Leaks do not appear to be problematic. Intake Vital Signs 11/19/24 08:01 02/26/25 08:01 Height 5 ft 5 in 5 ft 5 in Weight: 170 lb BMI 28.3 BP 141/90 H Blood Pressure Location Lt brachial Position Sitting Respiration 18 Pulse 83 Pulse Source Monitor Temp 97.3 F L Temperature Source Temporal Artery Pulse Oximetry (%) 95 Oxygen Delivery Method room air Intake Visit Reasons: 3 M FU Chief Complaint: new pap therapy Hospice Entrance Attendant Required: No DME Vendor: [employer] Accompanied by: Self Allergies No Known Allergies Allergy (Verified 02/26/25 10:44) Medications ???Medication ???Instructions ???Recorded ???Confirmed ???Type ferrous sulfate 325 mg (65 mg 325 mg PO QHS 01/26/15 02/26/25 Hi story iron) tablet folic acid 800 mcg tablet 1.6 mg PO QHS 01/26/15 02/26/25 Hi story multivitamin with folic acid 400 1 tab PO DAILY 01/26/15 02/26/25 H istory mcg tablet ascorbic acid (vitamin C) 500 mg 500 mg PO QHS 09/04/17 02/26/25 Hi story tablet cholecalciferol (vitamin D3) 50 2,000 unit PO QHS 09/04/17 5 History mcg (2,000 unit) ca (more content not included)... Normal [facility] Pulmonary Visit Reporton Pulmonary Visit Report [facility] [address] [place] [address] OFFICE VISIT Date of Service: 11/19/24 MR#: [id number] Acct: [id number] Name: PAMELA RODRIGUEZ Rep #: [id number] : 1965 Provider: CRISTINA Larios Age/Sex: 59/F Location: [facility] [place] Status: Signed Assessment and Plan Assessment and Plan (1) NIESHA (obstructive sleep apnea): Status: Chronic Comment: AHI of 21.7 Plan: She is using and benefiting from Pap therapy. She has noticed some benefit from the empiric increase of pressure to 7 cm of water. No indication for titration study at this time, but it may be indicated if pressure change does not control AHI. She is going to watch the AHI at home and if she notices that the spike continues she will contact the office, at which time a titration study will be ordered. Contact the office for any new or worsening symptoms in the meantime. Follow-up in 3 months to reevaluate compliance report and symptoms. (2) Overweight (BMI 25.0-29.9): Status: Chronic Plan: Complicates exam, plan, care and prognosis. Continue to encourage healthy weight loss. Plan Details Follow Up: 3 Months HPI 5 wk f/u Chief Complaint: Sleep apnea HPI Comments Details: This patient presents to the office today for follow-up of her obstructive sleep apnea. She is ambulatory, currently on room air and accompanied today by her . She has not recently been seen in the ED or urgent care for any respiratory problems. She has not required antibiotics or prednisone for breathing issues. She currently vapes nicotine. She quit smoking cigarettes 3 years ago. She smoked 1/2 to 1 pack/day for about 25 years, however she does note a 15-year smoking cessation that occurred prior to her most recent quit date. She does not qualify for an LDCT. She denies any difficulty with shortness of breath. She denies any cough, sputum production or hemoptysis. She denies any wheezing, chest tightness, chest pain or palpitations. She also denies any fever, chills or body aches. She is experiencing sinus congestion. She is not currently on any [id number] medications to control it. She is noticing feeling more rested. She reports that her overall number of events was more controlled since the pressure change, but the last week she has noticed a spike in AHI. She believes it may be related to seasonal allergies and sinus congestion. She continues to nap occasionally. She is not having difficulty with dry mouth or morning headaches. She denies nocturia. She is not snoring through the device or having difficulty with mask leaks. Compliance report for the past 30 days shows 97% compliance and average use of 6 hours and 55 minutes per night. Current setting is CPAP 7 cmH2O with a residual AHI of 11 events per hour. Leaks do not appear to be problematic. It is of note that 2.1 events per hour are of central in nature. Intake Vital Signs 10/11/24 13:47 11/19/24 08:01 Height 5 ft 5 in 5 ft 5 in Weight: 175 lb BMI 29.1 BP 126/85 H Blood Pressure Location Lt brachial Position Sitting Respiration 18 Pulse 76 Pulse Source Monitor Temp 97.4 F L Temperature Source Temporal Artery Pulse Oximetry (%) 97 Oxygen Delivery Method room air Intake Visit Reasons: 5 wk f/u Chief Complaint: new pap therapy Hospice Entrance Attendant Required: No DME Vendor: [employer] Accompanied by: Self Allergies No Known Allergies Allergy (Verified 11/19/24 11:20) Medications ???Medication ???Instructions ???Recorded ???Confirmed ???Type ferrous sulfate 325 mg (65 mg 325 mg PO QHS 01/26/15 11/19/24 Hi story iron) tablet folic acid 800 mcg tablet 1.6 mg PO QHS 01/26/15 11/19/24 Hi story multivitamin with folic acid 400 1 tab PO DAILY 01/26/15 11/19/24 H istory mcg tablet ascorbic acid (vitamin C) 500 mg 500 mg PO QHS 09/04/17 11/19/24 Hi story tablet cholecalciferol (vitamin D3) 50 2,000 unit PO QHS 09/04/17 5 History mcg (2,000 unit) capsule alprazolam 0.5 mg tablet 0.5 mg PO QHS PRN PRN Anxiety 07/2211/19/24 History lactobacillus combination no.4 3 3,000 mmu cells PO DAILY 08/17/23 11/19/24 History billion cell capsule (Probiotic) loperamide 2 mg capsule (Imodium 2 mg PO Q8H PRN loose stool 11/19/24 History A-D) mecobalamin (vitamin B12) 1,000 1,000 mcg PO DAILY 08/17/23 History mcg chewable tablet pramipexole 0.125 mg tablet 0.125 mg PO QHS 08/17/23 11/19/24 History psyllium husk (with sugar) 3.4 1 tbsp PO DAILY 08/17/23 11/19/24 History gram oral powder packet (Metamucil (with sugar)) melatonin 5 mg capsule 5 mg PO QHS 11/02/23 11/19/24 Hist ory zinc 50 mg capsule 50 mg PO DAILY 11/02/23 11/19/24 H istory citalopram 40 mg tablet 40 mg PO (more content not included)... Normal [facility] Pulmonary Visit Reporton Pulmonary Visit Report [facility] [place] [address] [place] [address] OFFICE VISIT Date of Service: 09/24/24 MR#: [id number] Acct: [id number] Name: PAMELA RODRIGUEZ Rep #: [id number] : 1965 Provider: CRISTINA Larios Age/Sex: 59/F Location: [facility] [place] Status: Signed Assessment and Plan Assessment and Plan (1) NIESHA (obstructive sleep apnea): Status: Chronic Comment: AHI of 21.7 Plan: She is using and benefiting from Pap therapy, however, her AHI remains elevated. I spoke to the sleep chemical processing laborer and we reviewed the sleep titration study together. Plan is to imperially increase PAP to 7 cmH2O and follow closely in the office to evaluate the compliance report and symptomatology. No indication for titration study at this time, but it may be indicated if pressure change does not control AHI. Contact the office for any new or worsening symptoms in the meantime, or if she is not tolerating the pressure increase. Follow-up in 5 weeks. (2) Overweight (BMI 25.0-29.9): Status: Chronic Plan: Complicates exam, plan, care and prognosis. Continue to encourage healthy weight loss. Plan Details Follow Up: 5 Weeks ([facility]) HPI 3 M FU Chief Complaint: new pap therapy HPI Comments Details: This patient presents to the office today to discuss test results. She is ambulatory, currently on room air and accompanied today by her . She has not recently been seen in the ED or urgent care for any respiratory problems. She has not required antibiotics or prednisone for breathing issues. She denies any difficulty with shortness of breath. She denies any cough, sputum production or hemoptysis. She denies any wheezing, chest tightness, chest pain or palpitations. She also denies any fever, chills or body aches. She is noticing feeling more rested most days, not everyday. She continues to nap occasionally. She is not having difficulty with dry mouth or morning headaches. She denies nocturia. She is not snoring through the device or having difficulty with mask leaks. Test results personally reviewed with patient: Split-night study completed on July 03, 2024. Impression is moderate obstructive sleep apnea with an AHI of 21.7 events per hour. Recommendation is to treat with a CPAP of 5 cm water. Compliance report for the past 30 days shows 100% compliance and average use of 7 hours and 10 minutes per night. Current setting is CPAP 5 cmH2O with a residual AHI of 10.9 events per hour. Leaks do not appear to be problematic. It is of note that 2.6 events per hour are of central in nature. Intake Vital Signs 06/24/24 07:16 09/24/24 08:55 Height 5 ft 5 in 5 ft 5 in Weight: 167 lb 174 lb BMI 27.8 28.9 BP 142/92 H 127/86 H Blood Pressure Location Rt brachial Rt brachial Position Sitting Sitting Respiration 20 H 20 H Pulse 81 76 Pulse Source Monitor Monitor Temp 97.1 F L 97.3 F L Temperature Source Temporal Artery Temporal Artery Pulse Oximetry (%) 96 95 Oxygen Delivery Method room air room air Intake Visit Reasons: 3 M FU Hospice Entrance Attendant Required: No DME Vendor: [employer] Accompanied by: Is patient in pain?: No Allergies No Known Allergies Allergy (Verified 09/24/24 11:25) Medications ???Medication ???Instructions ???Recorded ???Confirmed ???Type ferrous sulfate 325 mg (65 mg 325 mg PO QHS 01/26/15 09/24/24 Hi story iron) tablet folic acid 800 mcg tablet 1.6 mg PO QHS 01/26/15 09/24/24 Hi story multivitamin with folic acid 400 1 tab PO DAILY 01/26/15 09/24/24 H istory mcg tablet ascorbic acid (vitamin C) 500 mg 500 mg PO QHS 09/04/17 09/24/24 Hi story tablet cholecalciferol (vitamin D3) 50 2,000 unit PO QHS 09/04/17 5 History mcg (2,000 unit) capsule alprazolam 0.5 mg tablet 0.5 mg PO QHS PRN PRN Anxiety 07/2209/24/24 History lactobacillus combination no.4 3 3,000 mmu cells PO DAILY 08/17/23 09/24/24 History billion cell capsule (Probiotic) loperamide 2 mg capsule (Imodium 2 mg PO Q8H PRN loose stool 09/24/24 History A-D) mecobalamin (vitamin B12) 1,000 1,000 mcg PO DAILY 08/17/23 History mcg chewable tablet pramipexole 0.125 mg tablet 0.125 mg PO QHS 08/17/23 09/24/24 History psyllium husk (with sugar) 3.4 1 tbsp PO DAILY 08/17/23 09/24/24 History gram oral powder packet (Metamucil (with sugar)) melatonin 5 mg capsule 5 mg PO QHS 11/02/23 09/24/24 Hist ory zinc 50 mg capsule 50 mg PO DAILY 11/02/23 09/24/24 H istory citalopram 40 mg tablet 40 mg PO DAILY 03/04/24 09/24/24 H istory meclizine 25 mg tablet 25 mg PO 4X/DAY PRN PRN Dizziness 03/20/24 09/24/24 Rx #20 tabs losartan 100 mg tablet 100 mg PO DAILY 09/24/24 09/24/24 History PFSH Med (more content not included)... Normal [facility] Low Dose CT Lung Screeningon 07-15-[address] Lung Screening [facility] Services [address] [place], [place] [id number] Low Dose CT Lung Screening MR#: [id number] Acct: [id number] Name: PAMELA RODRIGUEZ Rep #: [id number] : 1965 F 59 From: Low Ramsey MD PCP: Dr. Denise Renee MD Status: REG CLI Study: Low Dose CT Lung Screening Date of Exam: 07/15 Exam# [id number] Ordering Dr: Denise Renee MD [id number] STUDY: LOW DOSE CT LUNG CANCER SCREENING REASON FOR EXAM: Female, 59 years old. screening for lung cancer RADIATION DOSAGE (If Supplied By Facility): CTDIvol = ( 3.02 ) mGy, DLP = ( 92.52 ) mGycm TECHNIQUE: No contrast was administered. Low dose technique was utilized (average mAS-38 and kVp 120). 1.25 mm axial source images with a slice interval of 1.25-mm were reconstructed in lung windows. 2.5 mm axial source images with a slice interval of 2.5-mm were reconstructed in lung windows. 5.0 mm axial source images with a slice interval of 5.0-mm were reconstructed in soft tissue windows. COMPARISON: 07/11/2023 Emphysema: Mild emphysema. No noncalcified nodule or mass. Endobronchial lesion: None Aorta: No thoracic aortic aneurysm. CORONARY ARTERIES: Coronary artery calcification is not seen. Heart: No cardiomegaly. Pulmonary artery: Normal Mediastinal nodes: Normal Other chest and abdominal findings: None CT/Low Dose CT Lung Screening IMPRESSION: Lung-RADS category 1 - Continue annual screening with LDCT in 12 months. IMPORTANT NOTES FOR USE: ACR Lung-RADS Version 1.1 Assessment Categories Release Date: 2018 Category: Coded 0-4 bases on nodule(s) with highest degree of suspicion. Negative screen is defined as categories 1 and 2; a positive screen is defined as categories 3 and 4. Category 3 and 4A nodules that are unchanged on interval CT should be coded as category 2, and individuals returned to screening in 12 months. Category 4X: Category 3 or 4 nodules with additional imaging findings that increase the suspicion of lung cancer, such as spiculation, GGN that doubles in size in 1 year, enlarged lymph notes, etc. Category Modifiers: S (significant finding unrelated to lung cancer) Electronically Signed: Low Ramsey MD at 9:09 EST , CC: Dr. Denise Renee MD Examiner Of Currency: Signed Normal [facility] Pulmonary Visit Reporton Pulmonary Visit Report [facility] [place] [address] [place] [address] OFFICE VISIT Date of Service: 06/24/24 MR#: [id number] Acct: [id number] Name: PAMELA RODRIGUEZ Rep #: [id number] : 1965 Provider: CRISTINA Larios Age/Sex: 59/F Location: [facility] [place] Status: Signed Assessment and Plan Assessment and Plan (1) Daytime hypersomnia: Status: Acute Plan: Highly suspicious for obstructive sleep apnea. Lengthy discussion about the pathophysiology of obstructive sleep apnea. We discussed the risks of untreated sleep apnea as well as the benefits. Sending the patient for split-night study, once appropriate settings have been suggested the patient will have therapy ordered. Initial goal will be to wear PAP at least 4 hours nightly. Ultimately, it should be worn any time spent sleeping. I have encouraged the patient to call the office with any difficulties acclimating to PAP therapy. Follow up in the office in 3 months, at which time I anticipate the patient will be on PAP therapy for 4-6 weeks. (2) Overweight (BMI 25.0-29.9): Status: Chronic Plan: Complicates exam, plan, care and prognosis. Continue to encourage healthy weight loss. Orders: Orders Split Night Sleep Study Today G47.10 - Hypersomnia, unspecified Plan Details Follow Up: 3 Months ([facility]) HPI HPI Comments Details: This patient presents to the office today for initial consultation regarding concern for obstructive sleep apnea. She is ambulatory, currently on room air and accompanied today by her . The patient reports that she does snore. She has awakened herself by gasping for air. Her reports that he has seen her have apneic events. The patient is not feeling rested when she wakes up in the morning. She has between 1 and 3, even upwards of 4 events of nocturia per night. She states that she has water by the bedside due to significant dry mouth. She denies the presence of morning headaches. She does nap regularly. She does not find herself nodding off to sleep unintentionally. 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 She quit smoking 1 year ago. She was smoking 1/2 to 1 pack/day. She admits that she is now using e-cigarettes. She has never seen a assistant warehouse manager. She has never had a pulmonary function test. She has never been prescribed an inhaler. Her primary care doctor does follow her with annual LDCT. Past medical family history significant for: Mother has hypertension, father has good health. The patient has a total of 5 brothers and sisters, brother had neck surgery due to some type of an injury. Sister has a history of sleep apnea. The patient reports that all of us have depression and anxiety. The patient has 4 children, all have good health as well. She denies any difficulty with shortness of breath. She denies any cough, sputum production or hemoptysis. She denies any wheezing, chest tightness, chest pain or palpitations. She also denies any fever, chills or body aches. STOP-BANG Assessment: 1. Do you snore? Y 2. Are you frequently tired during the day? Y 3. Have you been observed gasping or choking while asleep? Y 4. Do you have high blood pressure? Y 5. BMI - greater than 35kg/m2? N 6. Age - over 50 years old? Y 7. Neck Circumference - greater than 37 cm for females or 40 cm for males? N 8. Gender - male? N Total STOP-BANG score = 5 which indicates HIGH risk for obstructive sleep apnea (yes to 3 or more questions = high risk of sleep apnea). Intake Vital Signs 03/04/24 19:10 04/18/24 04:06 06/24/24 07:16 Height 5 ft 5 in 5 ft 5 in 5 ft 5 in Weight: 167 lb BMI 27.8 BP 142/92 H Blood Pressure Location Rt brachial Position Sitting Respiration 20 H Pulse 81 Pulse Source Monitor Temp 97.1 F L Temperature Source Temporal Artery Pulse Oximetry (%) 96 Oxygen Delivery Method room air Intake Visit Reasons: Sleep apnea Chief Complaint: f/u abdominal pain Hospice Entrance Attendant Required: No Accompanied by: Allergies No Known Allergies Allergy (Verified 06/24/24 08:24) Medications ???Medication ???Instructions ???Recorded ???Confirmed ???Type ferrous sulfate 325 mg (65 mg 325 mg PO QHS 01/26/15 06/24/24 History iron) tablet folic acid 800 mcg tablet 1.6 mg PO QHS 01/26/15 06/24/24 History multivitamin with folic acid 400 1 tab PO DAILY 01/26/15 06/24/24 History mcg tablet ascorbic acid (vitamin C) 500 mg 500 mg PO QHS 09/04/17 06/24/24 History tablet cholecalciferol (vitamin D3) 50 2,000 unit PO QHS 09/04/17 06/24/24 History mcg (2,000 unit) capsule alprazolam 0.5 mg tablet 0.5 mg PO QHS PRN PRN Anxiety 08/17/23 06/24/24 History lactobacillus combination no.4 3 3,000 mmu cells PO DAILY 08/17/23 (more content not included)... Normal [facility] Re-Evaluation - PT (1)on Re-Evaluation - PT (1) [facility] [address] [place] [address]. [address] [place] [address] / REEVALUATION / MEDICARE RECERTIFICATION PHYSICAL THERAPY MR#: [id number] Acct: [id number] Name: PAMELA RODRIGUEZ Rep #: [id number] : 1965 59 From: Sony Peterson DPT Referring Dr.: DARREN Moya Status:REG RCR Insurance: [employer]/[facility] SELF PAY INSURANCE Re-Evaluation Intro: DARREN Moya, It has been my pleasure to treat PAMELA RODRIGUEZ over the last 8 visits for L shoulder sprain. Please see the progress note below for an update on the physical therapy plan of care! Subjective Subjective: Pt. reports overall doing very well. She reports no pain, but does have occasional occurrence of catching. Work is going well as well. Objective Objective/Function: PROM: Full L shoulder ROM without increase in symptoms. AROM: Pt. has full L shoulder flexion, functional ER and functional IR. She does report some catching occasionally with flexion and abduction motions. MMT: R shoulder: flexion 18.1#, abd 23.3#, ER 12.1#, IR 19.8#. L shoulder: flexion 17.9#, abd 19.3#, ER 12.8#, IR 18.5#. Pt. has close to symmetrical strength and close to full motion without issues. She is back to work doing overall pretty well. A little sore with lifting, but not too much of an issue. Plan Plan Plan: Pt. to trial all exercises for the next 2 weeks. Overall she is doing well. She is to call back if having issues. If doing well over this time frame I will DC patient back to physician. Balance/Gait/Functional tests Balance/Special Test Scores Quick DASH Score: 2.2725 Goals Goals Goal 1:: LTG: pt. to be with HEP for L shoulder ROM and scapular/periscapular strengthening. Goal Time Frame: 4-6 Weeks Goal Progress: Goal Met Goal 2:: LTG: Pt. to have full L shoulder ROM without increase in symptoms. Goal Time Frame: 4-6 Weeks Goal Progress: Goal Met Goal 3:: LTG: pt. to have symmetrical strength between BUEs. Goal Time Frame: 4-6 Weeks Goal Progress: Goal Met Goal 4:: LTG: Pt. to resume all work related activities without increase in L shoulder pain. Goal Time Frame: 4-6 Weeks Goal Progress: Goal Met Anticipated Interventions Anticipated Interventions Patient/Client Instruction: Educate patient on: Condition, Plan of Care, Risk Factors and Benefits of Fitness Program For the Purpose of:: To improve decision making, To facilitate caregiver knowledge, To improve self management, To prevent re-injury, To improve ability to perform tasks related to life management and To improve tolerance to ADL's Therapeutic Exercise to Include: Strength training, Power training, Postural training, Flexibilty training, Passive ROM, Active ROM and Scapular Strength/Stabilization For the Purpose of:: To decrease pain, To increase ROM, To improve nutrient delivery to tissue, To increase oxygenation perfusion, To improve muscle performance and motor function, To improve health of tissue and To decrease soft tissue restriction Manual Therapy Techniques to Include: Mobilization, Passive ROM and Soft tissue mobilization For the Purpose of:: To decrease pain, To increase ROM, To improve nutrient delivery to tissue, To increase oxygenation perfusion and To improve muscle performance and motor function Cryotherapy (ice pack, ice massage): Yes For the Purpose of:: To decrease pain, To increase ROM and To improve nutrient delivery to tissue Re-Evaluation Ending Re-evaluation ending: Please do not hesitate to contact me at [phone] by phone or if you have questions or concerns regarding this new plan of care! Sincerely, Sony Vargas Kristen, DPT 06/20/24 1452 CC: Dr. Denise Renee MD; DARREN Moya CLS Signed For Medicare only, by signing this I certify the plan of care. ____ Physicians Signature Date Normal [facility] Pelvic w/ Transvaginalon Pelvic w/ Transvaginal [facility] Services [address] [place] [place], [place] [id number] Pelvic w/ Transvaginal MR#: [id number] Acct: [id number] Name: PAMELA RODRIGUEZ Rep #: [id number] : 1965 F 59 From: Romero Byers PCP: Dr. Denise Renee MD Status: [facility] Study: Pelvic w/ Transvaginal Date of Exam: 06/14/24 Exam# [id number] Ordering Dr: Denise Renee MD [id number] STUDY: ULTRASOUND OF THE FEMALE PELVIS - COMPLETE REASON FOR EXAM: Female, 59 years old. post menopausal bleeding TECHNIQUE: Transvaginal and transabdominal imaging. COMPARISON: None. FINDINGS: The uterus is anteverted and is in a midline position. The uterus measures 6.2x5.2 cm. There is a Nabothian cyst of the cervix. The endometrium measures 13 mm in thickness, and is hyperechoic. There is no demonstrated endometrial mass. Myometrium appears heterogeneous and coarse. No discrete lesions. I.U.D. - The patient does not have an I.U.D. The right ovary is visualized. The right ovary measures 2.2 x 1.6 cm. There is no right ovarian cyst or ovarian mass. There is no visualized right adnexal mass or complex lesion. There is normal arterial and normal venous vascularity. The left ovary is visualized. The left ovary measures 2.5 x 2.1 cm. There is no left ovarian cyst or ovarian mass. There is no visualized left adnexal mass or complex lesion. There is normal arterial and normal venous vascularity. There is no fluid in the cul-de-sac. Urinary bladder volume is (in cc) 18.4. US/Pelvic w/ Transvaginal IMPRESSION: There are no acute findings. Electronically Signed: Romero Abdul MD at 21:44 EDT Reading Location ID and State: [facility] / [place] , Service support , CC: Dr. Denise Renee MD Examiner Of Currency: Signed Normal [facility] SCRN MAMM (CAD)W/JERRELL BILATo n 06-12-2024 SCRN MAMM (CAD)W/JERRELL BILAT [facility] Imaging Services [address] [place] [address] [id number] SCRN MAMM (CAD)W/JERRELL BILAT MR#: [id number] Acct: [id number] Name: PAMELA RODRIGUEZ Rep #: [id number] : 1965 F 59 From: Geovanni lane MD PCP: Dr. Denise Renee MD Status: [facility] Study: SCRN MAMM (CAD)W/JERRELL BILAT Date of Exam: 05/22 11/11 Exam# [id number] Ordering Dr: Denise Renee MD [id number] MAMMOGRAPHY - BILATERAL SCREENING REASON FOR EXAM: Female, 59 years old. Routine annual screening examination. PERTINENT HISTORY: Non-contributory. Remote right stereotactic breast biopsy. TECHNIQUE: Digital bilateral breast jerrell (3D mammographic acquisition) in the CC and MLO projections. 2-D mediolateral oblique (MLO) and craniocaudad (CC) views of both breasts were obtained. CAD: Full Field Digital Mammography with Computer Added Detection was performed. COMPARISON: Comparison is made with prior study July 11, 2023 and November 25, 2021. FINDINGS: Breast Composition: The breasts are heterogeneously dense, which may obscure small masses. There are no dominant masses or suspicious calcifications. A tissue clip marker is seen in the upper lateral aspect of the right breast. This is unchanged. No other significant abnormalities are identified. There has been no significant change since the prior study. BI/SCRN MAMM (CAD)W/JERRELL BILAT IMPRESSION: Stable bilateral screening mammogram. Yearly follow-up mammogram recommended. (A) ASSESSMENT CATEGORY: BIRADS Category 2: Benign. A letter regarding these results will be sent to the patient by the facility within 30 days. Approximately 10% of breast cancers are not detected by mammography. A normal mammogram should not delay biopsy of a clinically suspicious abnormality. [id number] Electronically Signed: Geovanni Arias MD at 10:27 EDT , CC: Dr. Denise Renee MD Examiner Of Currency: Signed Normal [facility] PAP IG HPV HR APTIMAon 06-07 ADEQ Comment Normal . [facility] Comment on above: Order Comment: Speci men Comment: No. of containers..01 ThinPrep Vial Result Comment: Sati sfactory for evaluation. No endocervical component is identified. Performed By: #### L 7400.0377 ####[facility] [address] [place], [address] COMM . Normal . [facility] Comment on above: Order Comment: Speci men Comment: No. of containers..01 ThinPrep Vial Performed By: #### L 7400.0377 ####[facility] [address] [place], [address] COMMENT Comment Normal . [facility] Comment on above: Order Comment: Speci men Comment: No. of containers..01 ThinPrep Vial Result Comment: This liquid based ThinPrep(R) pap test was screened with the use of an image guided system. Performed By: #### L 7400.0377 ####[facility] [address] [place], [address] DIAG Comment Normal . [facility] Comment on above: Order Comment: Speci men Comment: No. of containers..01 ThinPrep Vial Result Comment: NEGA TIVE FOR INTRAEPITHELIAL LESION OR MALIGNANCY. Performed By: #### L 7400.0377 ####[facility] [address] [place], [place], [id number] HPV APTIMA, HR Negative Normal Negative [facility] Comment on above: Order Comment: Speci men Comment: No. of containers..01 ThinPrep Vial Result Comment: This nucleic acid amplification test detects fourteen high- risk HPV types (16,18,31,33,35,39,45,51,52,56,58,59,66,68) without differentiation. Performed at: - [address] [id number] Veneer Sheet Repairer: Nilsa Rojas MD, Phone: [phone] Performed at: =[address] [id number] Veneer Sheet Repairer: Nilas Rojas MD, Phone: [phone] Performed By: #### L 7400.0377 ####[facility] [address] [place], [address] PAPSMR Comment Normal . [facility] Comment on above: Order Comment: Speci men Comment: No. of containers..01 ThinPrep Vial Result Comment: The Pap smear is a screening test designed to aid in the detection of premalignant and malignant conditions of the uterine cervix. It is not a diagnostic procedure and should not be used as the sole means of detecting cervical cancer. Both false-positive and false-negative reports do occur. Performed By: #### L 7400.0377 ####[facility] [address] [place], [address] PERFORM Comment Normal . [facility] Comment on above: Order Comment: Speci men Comment: No. of containers..01 ThinPrep Vial Result Comment: Will [employer] (ASCP) Performed By: #### L 7400.0377 ####[facility] [address] [place], [address] CBC, Employeeon 06-03-2024 Absolute Lymph 2.65 X10 3/uL Normal 0.83-4.51 [facility] Comment on above: Performed By: #### L 500.2900, L100.0200 #### [facility] [address] [place], [address] Absolute Neut 4.5 X10 3/uL Normal 2.0-7.7 [facility] Comment on above: Performed By: #### L 500.2900, L100.0200 #### [facility] [address] [place], [address] Basophils/100 WBC (Bld) 0.5 % Normal 0-1 [facility] Comment on above: Performed By: #### L 500.2900, L100.0200 #### [facility] [address] [place], [address] Eosinophils/100 WBC (Bld) 2.0 % Normal 0-5 [facility] Comment on above: Performed By: #### L 500.2900, L100.0200 #### [facility] [address] [place], [address] Erythrocyte distribution width (RBC) [Ratio] 13.0 % Normal 11.6-14.6 [facility] Comment on above: Performed By: #### L 500.2900, L100.0200 #### [facility] [address] [place], [address] Hematocrit (Bld) [Volume fraction] 46.5 % Normal 37-47 [facility] Comment on above: Performed By: #### L 500.2900, L100.0200 #### [facility] [address] [place], [address] Hemoglobin (Bld) [Mass/Vol] 14.7 g/dL Normal 12.0-15.0 [facility] Comment on above: Performed By: #### L 500.2900, L100.0200 #### [facility] [address] [place], [address] Lymphocytes/100 WBC (Bld) 33.2 % Normal 19-41 [facility] Comment on above: Performed By: #### L 500.2900, L100.0200 #### [facility] [address] [place], [address] MCH (RBC) [Entitic mass] 30.7 pg Normal 27.0-32.0 [facility] Comment on above: Performed By: #### L 500.2900, L100.0200 #### [facility] [address] [place], [address] MCHC (RBC) [Mass/Vol] 31.6 g/dL Low 32-36 [facility] Comment on above: Performed By: #### L 500.2900, L100.0200 #### [facility] [address] [place], [address] MCV (RBC) [Entitic vol] 97.1 fL Normal 81-99 [facility] Comment on above: Performed By: #### L 500.2900, L100.0200 #### [facility] [address] [place], [address] Monocytes/100 WBC (Bld) 7.0 % Normal 0-10 [facility] Comment on above: Performed By: #### L 500.2900, L100.0200 #### [facility] [address] [place], [address] Neutrophils/100 WBC (Bld) 56.9 % Normal 47-70 [facility] Comment on above: Performed By: #### L 500.2900, L100.0200 #### [facility] [address] [place], [address] NRBC # 0.00 10 3/uL Normal 0-5 [facility] Comment on above: Performed By: #### L 500.2900, L100.0200 #### [facility] [address] [place], [address] Nucleated RBC (Bld) [#/Vol] 0 10*3/uL Normal 0-5 [facility] Comment on above: Performed By: #### L 500.2900, L100.0200 #### [facility] [address] [place], [address] Platelet mean volume (Bld) [Entitic vol] 9.8 fL Normal 6.2-12.0 [facility] Comment on above: Performed By: #### L 500.2900, L100.0200 #### [facility] [address] [place], [address] Platelets (Bld) [#/Vol] 293 10*3/uL Normal 150-450 [facility] Comment on above: Performed By: #### L 500.2900, L100.0200 #### [facility] [address] [place], [address] RBC (Bld) [#/Vol] 4.79 10*6/uL Normal 4.2-5.4 [facility] Comment on above: Performed By: #### L 500.2900, L100.0200 #### [facility] [address] [place], [address] RDW SD 46.6 fl High 35.1-43.9 [facility] Comment on above: Performed By: #### L 500.2900, L100.0200 #### [facility] [address] [place], [address] WBC (Bld) [#/Vol] 8.0 10*3/uL Normal 4.4-11.0 [facility] Comment on above: Performed By: #### L 500.2900, L100.0200 #### [facility] [address] [place], [address] [employer] 4 Albumin [Mass/Vol] 3.6 g/dL Normal 3.2-5.0 [facility] Comment on above: Performed By: #### L 500.2900, L100.0200 #### [facility] [address] [place], [address] Albumin/Globulin [Mass ratio] 1.0 {ratio} Normal 0.9-2.4 [facility] Comment on above: Performed By: #### L 500.2900, L100.0200 #### [facility] [address] [place], [address] ALK P 93 U/L Normal 45-117 [facility] Comment on above: Performed By: #### L 500.2900, L100.0200 #### [facility] [address] [place], [address] ALT [Catalytic activity/Vol] 62 U/L High 13-56 [facility] Comment on above: Performed By: #### L 500.2900, L100.0200 #### [facility] [address] [place], [address] AST [Catalytic activity/Vol] 31 U/L Normal 15-37 [facility] Comment on above: Performed By: #### L 500.2900, L100.0200 #### [facility] [address] [place], [address] Bilirubin [Mass/Vol] 0.70 mg/dL Normal 0.20-1.00 [facility] Comment on above: Result Comment: For patients on eltrombopag therapy, use of Dimension Yermo TBIL is not recommended. Performed By: #### L 500.2900, L100.0200 #### [facility] [address] [place], [address] Bilirubin.direct [Mass/Vol] 0.19 mg/dL Normal 0.00-0.30 [facility] Comment on above: Performed By: #### L 500.2900, L100.0200 #### [facility] [address] [place], [address] BUN/CRE 19.5 RATIO Normal 10-20 [facility] Comment on above: Performed By: #### L 500.2900, L100.0200 #### [facility] [address] [place], [address] CA,Total 9.4 mg/dL Normal 8.5-10.1 [facility] Comment on above: Performed By: #### L 500.2900, L100.0200 #### [facility] [address] [place], [address] Chloride [Moles/Vol] 106 mmol/L Normal 98-107 [facility] Comment on above: Performed By: #### L 500.2900, L100.0200 #### [facility] [address] [place], [address] CHOL:HDL 2.20 Normal [facility] Comment on above: Performed By: #### L 500.2900, L100.0200 #### [facility] [address] [place], [address] Cholesterol [Mass/Vol] 198 mg/dL Normal 200 [facility] Comment on above: Result Comment: <200 mg/dL Desirable 200-240 mg/dL Borderline >240 mg/dL High Risk Performed By: #### L 500.2900, L100.0200 #### [facility] [address] [place], [address] Cholesterol in HDL [Mass/Vol] 88 mg/dL Normal [facility] Comment on above: Result Comment: The drugs N-Acetylcysteine and Metamizole may falsely depress this assay. Reference Range HDL <40 mg/dL Low HDL Cholesterol HDL >or= 60 mg/dL High HDL Cholesterol Performed By: #### L 500.2900, L100.0200 #### [facility] [address] [place], [address] Cholesterol in LDL [Mass/Vol] 91 mg/dL Normal 0-130 [facility] Comment on above: Performed By: #### L 500.2900, L100.0200 #### [facility] [address] [place], [address] Cholesterol in VLDL [Mass/Vol] 19 mg/dL Normal 5-40 [facility] Comment on above: Performed By: #### L 500.2900, L100.0200 #### [facility] [address] [place], [address] CO2 [Moles/Vol] 31.0 mmol/L Normal 21.0-32.0 [facility] Comment on above: Performed By: #### L 500.2900, L100.0200 #### [facility] [address] [place], [address] Creatinine [Mass/Vol] 0.82 mg/dL Normal 0.55-1.02 [facility] Comment on above: Result Comment: The validity of the calculated GFR GFRAA in patients over 70 years has not been determined. Clinical correlation is essential. Performed By: #### L 500.2900, L100.0200 #### [facility] [address] [place], [address] EST GFR - AA 92 mL/min Normal >60 [facility] Comment on above: Result Comment: Afri can [place] GFR Calc Performed By: #### L 500.2900, L100.0200 #### [facility] [address] [place], [address] GAP 2 Low 5-15 [facility] Comment on above: Performed By: #### L 500.2900, L100.0200 #### [facility] [address] [place], [address] GFR/1.73 sq M.predicted among non-blacks MDRD (S/P/Bld) [Vol rate/Area] 76 mL/min/{1.73_m2} Normal >60 [facility] Comment on above: Result Comment: Non- GFR Calc Performed By: #### L 500.2900, L100.0200 #### [facility] [address] [place], [address] Globulin (S) [Mass/Vol] 3.5 g/dL Normal 2.2-4.2 [facility] Comment on above: Performed By: #### L 500.2900, L100.0200 #### [facility] [address] [place], [address] Glucose [Mass/Vol] 94 mg/dL Normal 74-106 [facility] Comment on above: Performed By: #### L 500.2900, L100.0200 #### [facility] [address] [place], [address] LDH 162 U/L Normal 84-246 [facility] Comment on above: Performed By: #### L 500.2900, L100.0200 #### [facility] [address] [place], [address] Phosphate [Mass/Vol] 3.2 mg/dL Normal 2.5-4.9 [facility] Comment on above: Performed By: #### L 500.2900, L100.0200 #### [facility] [address] [place], [address] Potassium [Moles/Vol] 4.4 mmol/L Normal 3.5-5.1 [facility] Comment on above: Performed By: #### L 500.2900, L100.0200 #### [facility] [address] [place], [address] Sodium [Moles/Vol] 139 mmol/L Normal 136-145 [facility] Comment on above: Performed By: #### L 500.2900, L100.0200 #### [facility] [address] [place], [address] T PROT 7.1 g/dL Normal 6.4-8.2 [facility] Comment on above: Performed By: #### L 500.2900, L100.0200 #### [facility] [address] [place], [address] Triglyceride [Mass/Vol] 93 mg/dL Normal [facility] Comment on above: Result Comment: The drugs N-Acetylcysteine and Metamizole may falsely depress this assay. Serum Triglycerides Reference Interval Normal <150 mg/dL Borderline high 150 - 199 mg/dL High 200 - 499 mg/dL Very High > or = 500 mg/dL Performed By: #### L 500.2900, L100.0200 #### [facility] [address] [place], [address] Urea nitrogen [Mass/Vol] 16 mg/dL Normal 7-18 [facility] Comment on above: Performed By: #### L 500.2900, L100.0200 #### [facility] [address] [place], [address] URIC 4.4 mg/dL Normal 2.6-6.0 [facility] Comment on above: Result Comment: The drugs N-Acetylcysteine and Metamizole may falsely depress this assay. Performed By: #### L 500.2900, L100.0200 #### [facility] [address] [place], [address] Inital Evaluation (1) - PTon 05-23-2024 Inital Evaluation (1) - PT [facility] [address] [place] [address]. [address] [place] [address] / REHABILITATION SERVICES INITIAL EVALUATION MR#: [id number] Acct: [id number] Name: PAMELA RODRIGUEZ Rep #: [id number] : 1965 59 From: Sony Peterson DPT Referring Dr.: DARREN Moya Status: REG RCR [facility] [employer] SELF PAY INSURANCE Patient's Visit Information Visit Information Visit Information: PAMELA RODRIGUEZ is a 59 year old F referred to Physical Therapy by DARREN Moya with a diagnosis of L shoulder sprain. Date of Evaluation: 05/23/24 Physical Therapist: Sony Peterson DPT Visit Plan Frequency: 2x /Week Duration: 4 Weeks Plan: 1) phase II wand exercises with focus on regaining full motion 2) Passive end range of motion with inferior and AP GH mobs grade III/IV to aid with improving Gh joint mobility and inferior capsule mobility. 3) phase III RTC strengthening, progressive loading to aid in tissue remodeling. Ice for pain control. 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 HEP at IE: supine wand flexion 2x10 supine wand ER 2x10x5 standing wand extension 2x10 standing wand IR 2x10/ea. movement mid row PTB 2x10 shoulder ER L OTB 2x10 Subjective Subjective: Pt. is here today for her initial evaluation with diagnosis of sprain of L shoulder joint. 6 weeks ago she tripped over a tackle box and felt on her shoulder. She was initially in a sling, but is now out. She did have an injection 1 week ago and is now started feeling better. She did have an MRI that showed supraspinatus tendinosis without full thickness tearing. Pt. is finally having increased ROM and has been able to do more. She is still having catching in her arm with certain movements. Pt. is hopeful to reduce symptoms in order to get back to work and increase her strength in her L UE. Pain L shoulder: Pain Intensity (Out of 10): 1 Pain Intensity Range: 0 and 4 Objective Objective: POSTURE: Pt. has decent posture in stance. Pt. has normal shoulder heights, normal head posture,. PALPATION: Pt. has some mild tenderness at anterior sub acromial space. No pain throughout cervical spine. NEURO: normal throughout BUEs. ROM: PROM: L shoulder: flexion 175deg mild increase in pain, ER at 90deg 105deg mild increase in pain, IR at 90deg of abd 50deg mild increase symptoms. AROM: L shoulder: flexion 170deg, abd 170deg, functional ER C5, functional IR L2. t. had to slowly increase her motions as she was anticipating pain. MMT: R shoulder: ER 22.1#, IR 28.1#, flexion 21.1#, abd 19.9#. L shoulder: ER: 11.3#, IR 24.1#, flexion 13.1#, abd 11.9#. Balance/Special Test Scores Quick DASH Score: 56.8175 Goals Goal 1:: LTG: pt. to be with HEP for L shoulder ROM and scapular/periscapular strengthening. Goal Time Frame: 4-6 Weeks Goal 2:: LTG: Pt. to have full L shoulder ROM without increase in symptoms. Goal Time Frame: 4-6 Weeks Goal 3:: LTG: pt. to have symmetrical strength between BUEs. Goal Time Frame: 4-6 Weeks Goal 4:: LTG: Pt. to resume all work related activities without increase in L shoulder pain. Goal Time Frame: 4-6 Weeks Rehabilitation Potential Physical Therapy Diagnosis: Pt. has signs and symptoms consistent with L shoulder sprain. Pt. is doing better since her initial injury, but did have an injection (this has helped a lot). Pt. is still having some issues with her end range of motions and some marked L shoulder/scapular weakness. She would benefit from PT to address the above limitations progressing back to all work and recreational activities without limitations. Rehabilitation Potential: Excellent Anticipated Interventions Patient/Client Instruction: Educate patient on: Condition, Plan of Care, Risk Factors and Benefits of Fitness Program For the Purpose of:: To improve decision making, To facilitate caregiver knowledge, To improve self management, To prevent re-injury, To improve ability to perform tasks related to life management and To improve tolerance to ADL's Therapeutic Exercise to Include: Strength training, Power training, Postural training, Flexibilty training, Passive ROM, Active ROM and Scapular Strength/Stabilization For the Purpose of:: To decrease pain, To increase ROM, To improve nutrient delivery to tissue, To increase oxygenation perfusion, To improve muscle performance and motor function, To improve health of tissue and To decrease soft tissue restriction Manual Therapy Techniques to Include: Mobilization, Passive ROM and Soft tissue mobilization For the Purpose of:: To decrease pain, To increase ROM, To improve nutrient delivery to tissue, To increase oxygenation perfusion and To improve muscle performance and motor function Cryotherapy (ice pack, ice massage): Yes For the Purpose of:: To decrease pain, To increase ROM and To improve (more content not included)... Normal [facility] Absolute lymphocyte countOrd ered By: Shawanda Watts on 11-08-2023 Lymphocytes Auto (Unsp spec) [#/Vol] 1.89 10*3/uL 0.83-4.51 [facility] Automated lymphocyte count a s percentage of total leukocytesOrdered By: Shawanda Watts on 11-08-2023 Lymphocytes/100 WBC Auto (Unsp spec) 25.3 % 19-41 [facility] Basophil percentageOrdered B y: Shawanda Watts on 11-08-2023 Basophils/100 WBC (Bld) 0.7 % 0-1 [facility] Chloride [Moles/Vol] 107 mmol/L 98-107 [facility] Eosinophils/100 WBC (Bld) 2.5 % 0-5 [facility] Glucose [Mass/Vol] 140 mg/dL 74-106 [facility] Comment on above: Fasting Glucose resu lt greater than or equal to 126 mg/dL suggests DIABETES MELLITUS per A.D.A. criteria. Hemoglobin (Bld) [Mass/Vol] 14.5 g/dL 12.0-15.0 [facility] Monocytes/100 WBC (Bld) 6.1 % 0-10 [facility] Neutrophils (Bld) [#/Vol] 4.9 10*3/uL 2.0-7.7 [facility] Neutrophils/100 WBC (Bld) 65.1 % 47-70 [facility] Potassium [Moles/Vol] 3.6 mmol/L 3.5-5.1 [facility] Sodium [Moles/Vol] 140 mmol/L 136-145 [facility] WBC (Bld) [#/Vol] 7.5 10*3/uL 4.4-11.0 [facility] Determination of erythrocyte mean corpuscular volume (MCV)Ordered By: Shawanda Watts on 11-08-2023 MCV (RBC) [Entitic vol] 94.7 fL 81-99 [facility] Erythrocyte distribution wid th ratioOrdered By: Shawanda Watts on 11-08-2023 Erythrocyte distribution width (RBC) [Ratio] 12.0 % 11.6-14.6 [facility] Erythrocyte distribution wid th standard deviationOrdered By: Shawanda Watts on 11-08-2023 Erythrocyte distribution width (RBC) [Entitic vol] 41.5 fL 35.1-43.9 [facility] Hematocrit Auto (Bld) [Volum e fraction]Ordered By: Shawanda Watts on 11-08-2023 Hematocrit (Bld) [Volume fraction] 44.3 % 37-47 [facility] Immature granulocytes/100 WB C Auto (Bld)Ordered By: Shawanda Watts on 11-08-2023 Immature granulocytes/100 WBC (Bld) 0.300 % 0.0-0.9 [facility] Comment on above: IG% - Immature Granu locytes (promyelocytes, myelocytes and metamyelocytes) > 1% indicates that a LEFT SHIFT is Present. Laboratory - Chemistry and C hemistry - challengeOrdered By: Shawanda Watts on 11-08-2023 CO2 [Moles/Vol] 28.0 mmol/L 21.0-32.0 [facility] Urea nitrogen/Creatinine [Mass ratio] 11.9 mg/mg 10- [facility] Laboratory - Hematology and Cell countsOrdered By: Shawanda Watts on 11-08-2023 MCH (RBC) [Entitic mass] 31.0 pg 27.0-32.0 [facility] MCHC (RBC) [Mass/Vol] 32.7 g/dL 32-36 [facility] Nucleated RBC/100 WBC (Bld) [Ratio] 0 % 0-5 [facility] Platelet mean volume (Bld) [Entitic vol] 10.6 fL 6.2-12.0 [facility] Platelets (Bld) [#/Vol] 256 10*3/uL 150-450 [facility] No Panel InformationOrdered By: Shawanda Watts on 11-08-2023 Estimated GFR (MDRD) Amer 90 mL/min >60 [facility] Comment on above: GFR Calc Estimated GFR (MDRD) Non-Af Amer 75 mL/min >60 [facility] Comment on above: Non- GFR Calc RBC Auto (Bld) [#/Vol]Ordere d By: Shawanda Watts on 11-08-2023 RBC (Bld) [#/Vol] 4.68 10*6/uL 4.2-5.4 [facility] Serum or plasma calcium janice urement (mass/volume)Ordered By: Shawanda Watts on 11-08-2023 Calcium [Mass/Vol] 9.2 mg/dL 8.5-10.1 [facility] Serum or plasma creatinine m easurement (mass/volume)Ordered By: Shawanda Watts on 11-08-2023 Creatinine [Mass/Vol] 0.84 mg/dL 0.55-1.02 [facility] Comment on above: The validity of the calculated GFR & GFRAA in patients over 70 years has not been determined. Clinical correlation is essential. Serum or plasma urea nitroge n measurement (mass/volume)Ordered By: Shawanda Watts on 11-08-2023 Urea nitrogen [Mass/Vol] 10 mg/dL 7-18 [facility] Thin prep Papanicolaou smear with manual screeningOrdered By: Shawanda Watts on 11-08-2023 Thin prep Papanicolaou smear with manual screening 5 5-15 [facility] COVID-19 virus antigen assay Ordered By: Walker Mccann on 06-22-2023 SARS-CoV-2 (COVID-19) Ag IA.rapid Ql (Resp) [facility] Absolute lymphocyte countOrd ered By: HEALTH ASSESSMENT on 06-08-2023 Lymphocytes Auto (Unsp spec) [#/Vol] 2.45 10*3/uL 0.83-4.51 [facility] Absolute reticulocyte countO rdered By: HEALTH ASSESSMENT on 06-08-2023 Reticulocytes (Bld) [#/Vol] 0.00 10*3/uL 0-5 [facility] Basophil percentageOrdered B y: HEALTH ASSESSMENT on 06-08-2023 Basophil percentage 2.9 mg/dL 2.5-4.9 [facility] Bilirubin [Mass/Vol] 0.50 mg/dL 0.20-1.00 [facility] Comment on above: For patients on eltr ombopag therapy, use of Dimension Yermo TBIL is not recommended. Chloride [Moles/Vol] 107 mmol/L 98-107 [facility] Cholesterol [Mass/Vol] 174 mg/dL <200 [facility] Comment on above: <200 mg/dL Desirable 200-240 mg/dL Borderline >240 mg/dL High Risk Glucose [Mass/Vol] 88 mg/dL 74-106 [facility] LDH [Catalytic activity/Vol] 186 U/L 84-246 [facility] Neutrophils (Bld) [#/Vol] 4.9 10*3/uL 2.0-7.7 [facility] Potassium [Moles/Vol] 4.0 mmol/L 3.5-5.1 [facility] Protein [Mass/Vol] 7.3 g/dL 6.4-8.2 [facility] Sodium [Moles/Vol] 141 mmol/L 136-145 [facility] Triglyceride [Mass/Vol] 106 mg/dL <199 [facility] Comment on above: The drugs N-Acetylcy steine and Metamizole may falsely depress this assay.Serum Triglycerides Reference Interval Normal <150 mg/dL Borderline high 150 - 199 mg/dL High 200 - 499 mg/dL Very High > or = 500 mg/dL WBC (Bld) [#/Vol] 8.3 10*3/uL 4.4-11.0 [facility] Blood erythrocytes count (nu mber/volume)Ordered By: HEALTH ASSESSMENT on 06-08-2023 RBC (Bld) [#/Vol] 4.62 10*6/uL 4.2-5.4 [facility] Blood hemoglobin measurement (mass/volume)Ordered By: HEALTH ASSESSMENT on 06-08-2023 Hemoglobin (Bld) [Mass/Vol] 14.7 g/dL 12.0-15.0 [facility] Blood leukocytes count corre cted for nucleated erythrocytes (number/volume)Ordered By: HEALTH ASSESSMENT on 06-08-2023 WBC corrected for nucl RBC (Bld) [#/Vol] DRILL DOCTOR [facility] Blood platelet mean volumeOr dered By: HEALTH ASSESSMENT on 06-08-2023 Platelet mean volume (Bld) [Entitic vol] 10.7 fL 6.2-12.0 [facility] Determination of erythrocyte mean corpuscular volume (MCV)Ordered By: HEALTH ASSESSMENT on 06-08-2023 MCV (RBC) [Entitic vol] 97.4 fL 81-99 [facility] Direct bilirubinOrdered By: HEALTH ASSESSMENT on 06-08-2023 Bilirubin.direct [Mass/Vol] 0.15 mg/dL 0.00-0.30 [facility] Hematocrit Auto (Bld) [Volum e fraction]Ordered By: HEALTH ASSESSMENT on 06-08-2023 Hematocrit (Bld) [Volume fraction] 45.0 % 37-47 [facility] Laboratory - Chemistry and C hemistry - challengeOrdered By: HEALTH ASSESSMENT on 06-08-2023 ALP [Catalytic activity/Vol] 98 U/L 45-117 [facility] ALT [Catalytic activity/Vol] 91 U/L 13-56 [facility] Cholesterol.total/Chol esterol in HDL [Mass ratio] 2.80 {ratio} [facility] CO2 [Moles/Vol] 27.0 mmol/L 21.0-32.0 [facility] Globulin (S) [Mass/Vol] 3.6 g/dL 2.2-4.2 [facility] Urea nitrogen/Creatinine [Mass ratio] 18.6 mg/mg 10-20 [facility] Laboratory - Hematology and Cell countsOrdered By: HEALTH ASSESSMENT on 06-08-2023 Erythrocyte distribution width (RBC) [Entitic vol] 44.2 fL 35.1-43.9 [facility] Erythrocyte distribution width (RBC) [Ratio] 12.3 % 11.6-14.6 [facility] MCH (RBC) [Entitic mass] 31.8 pg 27.0-32.0 [facility] Nucleated RBC/100 WBC (Bld) [Ratio] 0 % 0-5 [facility] MCHC Auto (RBC) [Mass/Vol]Or dered By: HEALTH ASSESSMENT on 06-08-2023 MCHC (RBC) [Mass/Vol] 32.7 g/dL 32-36 [facility] No Panel InformationOrdered By: HEALTH ASSESSMENT on 06-08-2023 Estimated Creatinine Clearance Calc DRILL DOCTOR [facility] Estimated GFR (MDRD) Amer 102 mL/min >60 [facility] Comment on above: GFR Calc Estimated GFR (MDRD) Non-Af Amer 85 mL/min >60 [facility] Comment on above: Non- GFR Calc Immature Granulocyte % (Auto) [facility] Platelets bldOrdered By: [facility] ASSESSMENT on 06-08-2023 Platelets (Bld) [#/Vol] 257 10*3/uL 150-450 [facility] Review by pathologistOrdered By: HEALTH ASSESSMENT on 06-08-2023 Pathologist review Syed (Unsp spec) [Interp] DRILL DOCTOR [facility] Segmented neutrophils/100 WB C Auto (Bld)Ordered By: HEALTH ASSESSMENT on 06-08-2023 Segmented neutrophils/100 WBC (Bld) 58.9 % 47-70 [facility] Serum or plasma albumin janice urement (mass/volume)Ordered By: HEALTH ASSESSMENT on 06-08-2023 Albumin [Mass/Vol] 3.7 g/dL 3.2-5.0 [facility] Serum or plasma albumin/glob ulin mass ratioOrdered By: HEALTH ASSESSMENT on 06-08-2023 Albumin/Globulin [Mass ratio] 1.0 {ratio} 0.9-2.4 [facility] Serum or plasma calcium janice urement (mass/volume)Ordered By: HEALTH ASSESSMENT on 06-08-2023 Calcium [Mass/Vol] 8.8 mg/dL 8.5-10.1 [facility] Serum or plasma cholesterol in HDL measurement (mass/volume)Ordered By: HEALTH ASSESSMENT on 06-08-2023 Cholesterol in HDL [Mass/Vol] 63 mg/dL >40 [facility] Comment on above: The drugs N-Acetylcy steine and Metamizole may falsely depress this assay. Reference Range HDL <40 mg/dL Low HDL Cholesterol HDL >or= 60 mg/dL High HDL Cholesterol Serum or plasma cholesterol in VLDL measurement (mass/volume)Ordered By: HEALTH ASSESSMENT on 06-08-2023 Cholesterol in VLDL [Mass/Vol] 21 mg/dL 5-40 [facility] Serum or plasma creatinine m easurement (mass/volume)Ordered By: HEALTH ASSESSMENT on 06-08-2023 Creatinine [Mass/Vol] 0.75 mg/dL 0.55-1.02 [facility] Comment on above: The validity of the calculated GFR & GFRAA in patients over 70 years has not been determined. Clinical correlation is essential. Serum or plasma low density lipoprotein (LDL) cholesterol measurement (mass/volume)Ordered By: HEALTH ASSESSMENT on 06-08-2023 Cholesterol in LDL [Mass/Vol] 90 mg/dL 0-130 [facility] Serum or plasma urea nitroge n measurement (mass/volume)Ordered By: HEALTH ASSESSMENT on 06-08-2023 Urea nitrogen [Mass/Vol] 14 mg/dL 7-18 [facility] Serum or plasma uric acid me asurement (mass/volume)Ordered By: HEALTH ASSESSMENT on 06-08-2023 Urate [Mass/Vol] 5.9 mg/dL 2.6-6.0 [facility] Comment on above: The drugs N-Acetylcy steine and Metamizole may falsely depress this assay. Thin prep Papanicolaou smear with manual screeningOrdered By: HEALTH ASSESSMENT on 06-08-2023 Thin prep Papanicolaou smear with manual screening 49 U/L 15-37 [facility] Thin prep Papanicolaou smear with manual screening 7 5-15 [facility] COVID-19 virus antigen assay Ordered By: Walker Mccann on 12-06-2022 SARS-CoV-2 (COVID-19) Ag IA.rapid Ql (Resp) [facility] Absolute lymphocyte counton 06-01-2022 Lymphocytes Auto (Unsp spec) [#/Vol] 2.30 10*3/uL 0.83-4.51 [facility] Work Phone: Absolute reticulocyte counto n 06-01-2022 Reticulocytes (Bld) [#/Vol] 0.00 10*3/uL 0-5 [facility] Work Phone: Basophil percentageon 2021 Basophil percentage 2.9 mg/dL 2.5-4.9 [facility] Work Phone: Bilirubin [Mass/Vol] 0.40 mg/dL 0.20-1.00 [facility] Work Phone: Comment on above: For patients on eltr ombopag therapy, use of Dimension Yermo TBIL is not recommended. Chloride [Moles/Vol] 106 mmol/L 98-107 [facility] Work Phone: Cholesterol [Mass/Vol] 180 mg/dL <200 [facility] Work Phone: Comment on above: <200 mg/dL Desirable 200-240 mg/dL Borderline >240 mg/dL High Risk Glucose [Mass/Vol] 96 mg/dL 74-106 [facility] Work Phone: Neutrophils (Bld) [#/Vol] 4.2 10*3/uL 2.0-7.7 [facility] Work Phone: Potassium [Moles/Vol] 3.8 mmol/L 3.5-5.1 [facility] Work Phone: Protein [Mass/Vol] 7.2 g/dL 6.4-8.2 [facility] Work Phone: Sodium [Moles/Vol] 141 mmol/L 136-145 [facility] Work Phone: Triglyceride [Mass/Vol] 121 mg/dL <199 [facility] Work Phone: Comment on above: The drugs N-Acetylcy steine and Metamizole may falsely depress this assay.Serum Triglycerides Reference Interval Normal <150 mg/dL Borderline high 150 - 199 mg/dL High 200 - 499 mg/dL Very High > or = 500 mg/dL WBC (Bld) [#/Vol] 7.5 10*3/uL 4.4-11.0 [facility] Work Phone: Bilirubin Test strip Ql (U)o n 06-01-2022 Bilirubin Ql (U) Negative Negative [facility] Work Phone: Blood erythrocytes count (nu mber/volume)on 06-01-2022 RBC (Bld) [#/Vol] 4.20 10*6/uL 4.2-5.4 [facility] Work Phone: [phone] Blood hemoglobin measurement (mass/volume)on 06-01-2022 Hemoglobin (Bld) [Mass/Vol] 13.4 g/dL 12.0-15.0 [facility] Work Phone: Blood platelet mean volumeon 06-01-2022 Platelet mean volume (Bld) [Entitic vol] 10.8 fL 6.2-12.0 [facility] Work Phone: Determination of erythrocyte mean corpuscular volume (MCV)on 06-01-2022 MCV (RBC) [Entitic vol] 98.3 fL 81-99 [facility] Work Phone: Direct bilirubinon Bilirubin.direct [Mass/Vol] 0.11 mg/dL 0.00-0.30 [facility] Work Phone: [phone] Hematocrit Auto (Bld) [Volum e fraction]on 06-01-2022 Hematocrit (Bld) [Volume fraction] 41.3 % 37-47 [facility] Work Phone: [phone] Ketones Test strip Ql (U)on 06-01-2022 Ketones Ql (U) Negative Negative [facility] Work Phone: Laboratory - Chemistry and C hemistry - challengeon 06-01-2022 ALP [Catalytic activity/Vol] 112 U/L 45-117 [facility] Work Phone: [phone] ALT [Catalytic activity/Vol] 100 U/L 13-56 [facility] Work Phone: [phone] Cholesterol.total/Chol esterol in HDL [Mass ratio] 2.70 {ratio} [facility] Work Phone: [phone] CO2 [Moles/Vol] 30.0 mmol/L 21.0-32.0 [facility] Work Phone: [phone] Globulin (S) [Mass/Vol] 3.5 g/dL 2.2-4.2 [facility] Work Phone: [phone] Urea nitrogen/Creatinine [Mass ratio] 17.9 mg/mg 10-20 [facility] Work Phone: [phone] Laboratory - Hematology and Cell countson 06-01-2022 Erythrocyte distribution width (RBC) [Entitic vol] 44.3 fL 35.1-43.9 [facility] Work Phone: [phone] Erythrocyte distribution width (RBC) [Ratio] 12.3 % 11.6-14.6 [facility] Work Phone: [phone] MCH (RBC) [Entitic mass] 31.9 pg 27.0-32.0 [facility] Work Phone: [phone] Nucleated RBC/100 WBC (Bld) [Ratio] 0 % 0-5 [facility] Work Phone: [phone] MCHC Auto (RBC) [Mass/Vol]on 06-01-2022 MCHC (RBC) [Mass/Vol] 32.4 g/dL 32-36 [facility] Work Phone: [phone] Nitrite Test strip Ql (U)on 06-01-2022 Nitrite Ql (U) Negative Negative [facility] Work Phone: No Panel Informationon 06-01 Estimated GFR (MDRD) Amer 107 mL/min >60 [facility] Work Phone: [phone] Comment on above: GFR Calc Estimated GFR (MDRD) Non-Af Amer 88 mL/min >60 [facility] Work Phone: Comment on above: Non- GFR Calc Platelets bldon 06-01-2022 Platelets (Bld) [#/Vol] 261 10*3/uL 150-450 [facility] Work Phone: Protein Test strip Ql (U)on 06-01-2022 Protein Ql (U) Negative Negative [facility] Work Phone: [phone] Segmented neutrophils/100 WB C Auto (Bld)on 06-01-2022 Segmented neutrophils/100 WBC (Bld) 55.9 % 47-70 [facility] Work Phone: Serum or plasma albumin janice urement (mass/volume)on 06-01-2022 Albumin [Mass/Vol] 3.7 g/dL 3.2-5.0 [facility] Work Phone: Serum or plasma albumin/glob ulin mass ratioon 06-01-2022 Albumin/Globulin [Mass ratio] 1.1 {ratio} 0.9-2.4 [facility] Work Phone: Serum or plasma calcium janice urement (mass/volume)on 06-01-2022 Calcium [Mass/Vol] 8.8 mg/dL 8.5-10.1 [facility] Work Phone: Serum or plasma cholesterol in HDL measurement (mass/volume)on 06-01-2022 Cholesterol in HDL [Mass/Vol] 66 mg/dL >40 [facility] Work Phone: Comment on above: The drugs N-Acetylcy steine and Metamizole may falsely depress this assay. Reference Range HDL <40 mg/dL Low HDL Cholesterol HDL >or= 60 mg/dL High HDL Cholesterol Serum or plasma cholesterol in VLDL measurement (mass/volume)on 06-01-2022 Cholesterol in VLDL [Mass/Vol] 24 mg/dL 5-40 [facility] Work Phone: Serum or plasma creatinine m easurement (mass/volume)on 06-01-2022 Creatinine [Mass/Vol] 0.73 mg/dL 0.55-1.02 [facility] Work Phone: Comment on above: The validity of the calculated GFR & GFRAA in patients over 70 years has not been determined. Clinical correlation is essential. Serum or plasma low density lipoprotein (LDL) cholesterol measurement (mass/volume)on 06-01-2022 Cholesterol in LDL [Mass/Vol] 90 mg/dL 0-130 [facility] Work Phone: [phone] Serum or plasma urea nitroge n measurement (mass/volume)on 06-01-2022 Urea nitrogen [Mass/Vol] 13 mg/dL 7-18 [facility] Work Phone: [phone] Serum or plasma uric acid me asurement (mass/volume)on 06-01-2022 Urate [Mass/Vol] 3.4 mg/dL 2.6-6.0 [facility] Work Phone: Comment on above: The drugs N-Acetylcy steine and Metamizole may falsely depress this assay. Thin prep Papanicolaou smear with manual screeningon 06-01-2022 Thin prep Papanicolaou smear with manual screening 58 U/L 15-37 [facility] Work Phone: Thin prep Papanicolaou smear with manual screening 5 5-15 [facility] Work Phone: [phone] Thin prep Papanicolaou smear with manual screening 169 U/L 84-246 [facility] Work Phone: [phone] Urine blood detectionon 05-21 RBC Ql (U) Negative Negative [facility] Work Phone: [phone] Urine clarityon 06-01-2022 Clarity (U) Sl. Cloudy Clear [facility] Work Phone: [phone] Urine color determinationon 06-01-2022 Color (U) Yellow Yellow [facility] Work Phone: [phone] Urine glucose detectionon Glucose Ql (U) Normal mg/dl Normal [facility] Work Phone: [phone] Urine leukocyte esterase det ection by dipstickon 06-01-2022 Leukocyte esterase Test strip Ql (U) Negative Negative [facility] Work Phone: Urine pHon 06-01-2022 pH (U) 6.5 [pH] 5.0 - 8.0 [facility] Work Phone: Urine specific gravity measu rementon 06-01-2022 Specific gravity (U) [Rel density] 1.020 1.002-1.030 [facility] Work Phone: Urobilinogen Auto test strip Ql (U)on 06-01-2022 Urobilinogen Ql (U) Normal mg/dl Normal [facility] Work Phone: Laboratory - Microbiology an d Antimicrobial susceptibilityon 05-02-2022 SARS-CoV-2 (COVID-19) RNA KERRY+probe Ql (Unsp spec) Not detected [facility] Work Phone: No Panel Informationon 05-02 POC Nasal Swab Influenza A,B Not detected [facility] Work Phone: POC Nasal Swab RSV Not detected [facility] Work Phone: No Panel Informationon 08-26 SARS-CoV-2 Antigen (Rapid) [facility] Work Phone: CNOVon 03-26-2018 CNOV Office Visit ([facility]) PAMELA RODRIGUEZ ([id number]) 1965 FDate Time Provider Department03/26/18 2:45 PM MARGAUX PIEDRA) [facility] During your visit today, we recorded the following information about you: Temperature Pulse Respiration Blood pressure 97.8 degrees 70/minute 16/minute 128/84 Weight 63 kgMargaux Piedra PA-C 03/26/2018 4:43 PM SignedSubjectiveHPIPt presents with [...] mouth at bedtime as needed.Disp: Rfl:FEXOFENADINE HCL (LUPE ORAL) Take by mouth. Disp: Rfl:albuterol HFA [...] oriented to person, place, and time and well-developed,well-nour ished, and in no distress.HENT:Head: Normocephalic and atraumatic.Cardiovascula r: Normal rate, regular rhythm and normal heart sounds.Pulmonary/Chest: Effort normal and breath sounds normal.Musculoskeletal:P naheed has a blister on the right ring finger middle phalanx. No significantredness or sign of cellulitis. No streakingNeurological: She is alert and oriented to person, place, and time.Skin: Skin is warm and dry.Psychiatric: Affect and judgment normal.Nursing note and vitals reviewed. ASSESSMENT/PLAN:1. Insect bite, initial encounter - ICD9: 919.4, E906.4, ICD10: W57.XXXAWill cover with bactroban. Discussed with patient concerning symptoms to go [facility] emergency department or follow up here. Pt agreeable with this plan.DARREN Greenberg-CReferring Provider: SELF [[id number]]Allergies As of Date: 03/26/2018(No Known Allergies)Date Reviewed: 03/26/2018Reviewed by: Shayna Mahoney Ma - Fully AssessedReason for Visit: Insect Bite [929] Cmt: ring finger right hand swollen, burning and itching x 3 daysPrimary Visit Diagnosis:Insect bite, initial encounter [W57.XXXA]Order(s):mupir ocin (BACTROBAN) 2 % creamApply 1 application to affected area three times daily for 10 days. Location: fingerDisp: 15 gRfl: 0Prescriptions as of 03/26/2018 Sig: ALPRAZOLAM 0.5 MG TABLET Take 0.5 mg by mouth at bedti* LUPE ORAL Take by mouth. ALBUTEROL SULFATE HFA [...] three times daily for 10 days. Location: fingerAndiounter Number: [id number] Status:Closed by MARGAUX PIEDRA PA-C on 03/26/18 Normal [facility] PROGRESSon 03-26-2018 Protein mass conc HNO ID: [id number]: Margaux Will (Darren) AthyService: (none)Author Type: Physician [...] mouth at bedtime asneeded. Disp: Rfl:FEXOFENADINE HCL (LUPE ORAL) Take by mouth. Disp: Rfl:albuterol HFA [...] well-nourished, and in no distress.HENT:Head: Normocephalic and atraumatic.Cardiovascula r: Normal rate, regular rhythm and normal heart sounds.Pulmonary/Chest: Effort normal and breath sounds normal.Musculoskeletal:P t has a blister on the right ring [...] follow up here. Pt agreeable with thisplan.Margaux Piedra PA-C Normal [facility] Vital Signs Date Time Vital Sign Value Performing Clinician Sunday monson 02-26-2025 08:01-0400 Body height 165.1 cm Kimberly Larios DRILL DOCTOR-C Work Phone: [facility] 02-26-2025 08:01-0400 Body mass index (BMI) [Ratio] 28.3 kg/m2 Kimberly Larios DRILL DOCTOR-C Work Phone: [facility] 02-26-2025 08:01-0400 Body temperature 97.3 [degF] Kimberly Larios DRILL DOCTOR-C Work Phone: [facility] 02-26-2025 08:01-0400 Body weight 77.11 kg Kimberly Larios DRILL DOCTOR-C Work Phone: [facility] 02-26-2025 08:01-0400 Diastolic blood pressure 90 mm[Hg] Kimberly Larios DRILL DOCTOR-C Work Phone: [facility] 02-26-2025 08:01-0400 Heart rate 83 /min Kimberly Larios DRILL DOCTOR-C Work Phone: [facility] 02-26-2025 08:01-0400 Respiratory rate 18 /min Kimberly Larios DRILL DOCTOR-C Work Phone: [facility] 02-26-2025 08:01-0400 SaO2% (BldA) [Mass fraction] 95 % Kimberly Larios DRILL DOCTOR-C Work Phone: [facility] 02-26-2025 08:01-0400 Systolic blood pressure 141 mm[Hg] Kimberly Larios DRILL DOCTOR-C Work Phone: [facility] 11-19-2024 08:01-0400 Body mass index (BMI) [Ratio] 29.1 kg/m2 Kimberly Larios DRILL DOCTOR-C Work Phone: [facility] 11-19-2024 08:01-0400 Body temperature 97.4 [degF] Kimberly Larios DRILL DOCTOR-C Work Phone: [facility] 11-19-2024 08:01-0400 Body weight 79.37 kg Kimberly Larios DRILL DOCTOR-C Work Phone: [facility] 11-19-2024 08:01-0400 Diastolic blood pressure 85 mm[Hg] Kimberly Larios DRILL DOCTOR-C Work Phone: [facility] 11-19-2024 08:01-0400 Heart rate 76 /min Kimberly Larios DRILL DOCTOR-C Work Phone: [facility] 11-19-2024 08:01-0400 Respiratory rate 18 /min Kimberly Larios DRILL DOCTOR-C Work Phone: [facility] 11-19-2024 08:01-0400 SaO2% (BldA) [Mass fraction] 97 % Kimberly Larios DRILL DOCTOR-C Work Phone: [facility] 11-19-2024 08:01-0400 Systolic blood pressure 126 mm[Hg] Kimberly Larios DRILL DOCTOR-C Work Phone: [facility] 11-08-2023 13:52-0400 Body height 162.[address] Denise Renee Work Phone: [facility] 11-08-2023 13:52-0400 Body mass index (BMI) [Ratio] 27.9 kg/m2 Dr. Denise Renee Work Phone: [facility] 11-08-2023 13:52-0400 Body temperature 97.6 [degF] Dr. Denise Renee Work Phone: [facility] 11-08-2023 13:52-0400 Body weight 73.[address] Denise Renee Work Phone: [facility] 11-08-2023 13:52-0400 Diastolic blood pressure 90 mm[Hg] Dr. Denise Renee Work Phone: [facility] 11-08-2023 13:52-0400 Heart rate 89 /min Dr. Denise Renee Work Phone: [facility] 11-08-2023 13:52-0400 Respiratory rate 18 /min Dr. Denise Renee Work Phone: [facility] 11-08-2023 13:52-0400 SaO2% (BldA) [Mass fraction] 96 % Dr. Denise Renee Work Phone: [facility] 11-08-2023 13:52-0400 Systolic blood pressure 135 mm[Hg] Dr. Denise Renee Work Phone: [facility] 11-06-2023 10:14-0400 Body temperature 97.9 [degF] Dr. Denise Renee Work Phone: 8(260)[phone] [place] [address] 11-06-2023 10:14-0400 Diastolic blood pressure 70 mm[Hg] Dr. Denise Renee Work Phone: 0(737)[phone] [place] [address] 11-06-2023 10:14-0400 Heart rate 76 /min Dr. Denise Renee Work Phone: 2(655)878-452531 [place] [address] 11-06-2023 10:14-0400 Respiratory rate 18 /min Dr. Denise Renee Work Phone: 8(116)710-279031 [place] [address] 11-06-2023 10:14-0400 SaO2% (BldA) [Mass fraction] 96 % Dr. Denise Renee Work Phone: [facility] 11-06-2023 10:14-0400 Systolic blood pressure 104 mm[Hg] Dr. Denise Renee Work Phone: [facility] 11-06-2023 08:10-0400 Body height 165.[address] Denise Renee Work Phone: [facility] 11-06-2023 08:10-0400 Body mass index (BMI) [Ratio] 27.2 kg/m2 Dr. Denise Renee Work Phone: 5(171)669-239031 [place] [address] 11-06-2023 08:10-0400 Body weight 74.[address] Denise Renee Work Phone: [facility] 08-17-2023 12:56-0500 Body mass index (BMI) [Ratio] 26.1 kg/m2 Dr. Denise Renee Work Phone: [facility] 08-17-2023 12:56-0500 Body weight 71.[address] Denise Renee Work Phone: [facility] 02-18-2023 10:37-0400 Body height 165.1 cm [facility] 02-18-2023 10:37-0400 Body temperature 97.5 [degF] [facility] 02-18-2023 10:37-0400 Diastolic blood pressure 100 mm[Hg] [facility] 02-18-2023 10:37-0400 Heart rate 90 /min [facility] 02-18-2023 10:37-0400 Respiratory rate 18 /min [facility] 02-18-2023 10:37-0400 SaO2% (BldA) [Mass fraction] 98 % [facility] 02-18-2023 10:37-0400 Systolic blood pressure 185 mm[Hg] [facility] 03-31-2022 17:13-0400 Body temperature 98.2 [degF] Dr. Denise Renee Work Phone: [facility] Work Phone: 03-31-2022 17:13-0400 Diastolic blood pressure 72 mm[Hg] Dr. Denise Renee Work Phone: [facility] Work Phone: 03-31-2022 17:13-0400 Heart rate 90 /min Dr. Deinse Renee Work Phone: [facility] Work Phone: 03-31-2022 17:13-0400 Respiratory rate 14 /min Dr. Denise Renee Work Phone: [facility] Work Phone: 03-31-2022 17:13-0400 SaO2% (BldA) [Mass fraction] 98 % Dr. Denise Renee Work Phone: [facility] Work Phone: 03-31-2022 17:13-0400 Systolic blood pressure 122 mm[Hg] Dr. Denise Renee Work Phone: [facility] Work Phone: Encounters Encounter Date Encounter Type Care Provider Facility Start: 05-16-2025 ambulatory No Primary Car e Physician Facility:[facility] Start: 05-13-2025 ambulatory No Primary Car e Physician Facility:[facility] Start: 02-26-2025 End: 02-26-2025 Patient encounter procedure Kimberly Larios DRILL DOCTOR-C -[facility] Work Phone: Start: 02-26-2025 End: 02-26-2025 ambulatory Kimberly Larios DRILL DOCTOR -[facility] Start: 11-26-2024 ambulatory Denise S Jolliff Facility: [facility] Start: 11-19-2024 End: 11-19-2024 Patient encounter procedure Kimberly Larios DRILL DOCTOR-C -[facility] Work Phone: Start: 11-19-2024 End: 11-19-2024 ambulatory Kimberly Larios NP Facility:[facility] Start: 10-28-2024 End: 10-28-2024 ambulatory Denise S Jolliff Facility:[facility] Start: 09-24-2024 End: 09-24-2024 ambulatory Denise S Jolliff Facility:[facility] Start: 07-15-2024 End: 07-15-2024 ambulatory Denise S Jolliff Facility:[facility] Start: 07-12-2024 End: 07-12-2024 ambulatory Denise S Jolliff Facility:[facility] Start: 07-03-2024 End: 07-03-2024 ambulatory Denise S Jolliff Facility:[facility] Start: 06-24-2024 End: 06-24-2024 ambulatory Denise S Jolliff Facility:[facility] Start: 06-20-2024 End: 06-20-2024 ambulatory Ursula Herzog Facility:[facility] Start: 06-14-2024 End: 06-14-2024 ambulatory Denise S Jolliff Facility:[facility] Start: 06-12-2024 End: 06-12-2024 ambulatory Denise S Jolliff Facility:[facility] Start: 06-03-2024 ambulatory Denise S Jolliff Facility: [facility] Start: 06-03-2024 End: 06-03-2024 ambulatory Denise Renee Facility:[facility] Start: 03-26-2024 End: 03-26-2024 ambulatory MADY Palomino SPEEDY [facility] Start: 03-26-2024 End: 03-26-2024 ambulatory DENISE RENEE [facility] Start: 11-08-2023 End: 11-08-[address] Denise Renee Work Phone: [facility] Work Phone: Start: 11-08-2023 End: 11-08-[address] Denise Renee Work Phone: [facility] Work Phone: Start: 11-06-2023 Non-patient / Non-visit Dr. Dayanna Renee Work Phone: [facility] Start: 11-06-2023 End: 11-06-2023 Admission to same day surgery center Dr. Denise Renee Work Phone: [facility] Work Phone: Start: 11-06-2023 End: 11-06-[address] Denise Renee Work Phone: [facility] Work Phone: Start: 08-17-2023 Non-patient / Non-visit Dr. Dayanna Renee Work Phone: [facility] Work Phone: Start: 07-11-2023 End: 07-11-2023 Patient encounter procedure [facility] Work Phone: Start: 06-22-2023 End: 07-20-2023 ambulatory [facility] Work Phone: Start: 06-22-2023 End: 07-20-2023 Discharged Recurring [place] Start: 06-08-2023 Registered Referred [facility] Start: 04-11-2023 End: 04-11-[address] Denise Renee Work Phone: [facility] Work Phone: Start: 04-11-2023 End: 04-11-[address] Denise Renee Work Phone: [facility] Work Phone: Start: 03-27-2023 End: 03-27-[address] Denise Renee Work Phone: [facility] Work Phone: Start: 03-15-2023 Non-patient / Non-visit Dr. Dayanna Renee Work Phone: [facility] Start: 03-15-2023 End: 03-15-[address] Denise Renee Work Phone: [facility] Work Phone: Start: 02-18-2023 End: 02-18-2023 Emergency department patient visit [facility] Work Phone: Start: 12-06-2022 Registered Referred [facility] Start: 06-20-2022 End: 06-20-[address] Denise Renee Work Phone: [facility] Work Phone: Start: 06-20-2022 End: 06-20-[address] Denise Renee Work Phone: [facility] Start: 06-01-[address] [facility] mcgowan [facility] Start: 05-02-2022 End: 05-02-[address] Denise Renee Work Phone: [facility] Start: 04-01-2022 End: 04-01-[address] Denise Renee Work Phone: [facility], [facility] Start: 03-31-2022 End: 03-31-[address] Denise Renee Work Phone: [facility] Start: 11-25-2021 End: 11-25-2021 Patient encounter procedure [facility] Start: 08-26-2021 Registered Referred [facility] Start: 03-26-2018 End: 03-27-2018 Patient encounter [facility] Procedures Date Procedure Procedure Detail Performing Clinician Start: 11-08-2023 Diagnostic radiograp hy of abdomen, decubitus and erect Dr. Denise Renee Work Phone: Start: 11-06-[address] Denise mcgowan Work Phone: Start: 07-11-2023 CT of chest Start: 07-11-2023 Screening mammography Start: 06-22-2023 Viral antigen assay Start: 03-27-2023 MRI of joint of lowe r extremity Dr. Denise Renee Work Phone: Start: 03-27-2023 MRI of lower extremity Dr. Denise Renee Work Phone: Start: 02-18-2023 Diagnostic radiograp hy of calcaneus Start: 02-18-2023 X-ray of both feet Start: 12-06-2022 Viral antigen assay Start: 06-20-[address] Denise mcgowan Work Phone: Start: 04-01-2022 X-ray of both feet Dr. Denise Renee Work Phone: Start: 11-25-2021 Screening mammography Start: 08-26-2021 SARS-CoV-2 Antigen (Rapid) H/O: surgery S/P D&C (status post dilation and curettage) Comment on above: 2014 H/O: tubal ligation Status post tubal ligation Comment on above: 09/1996 History of tonsillectomy S/P tonsillectom y Plan of Treatment Date Care Activity Detail Author Start: 11-06-2023 Colonoscopy flx dx w/collj spec when pfrmd DIAGNOSTIC COLONOSCOPY [facility] Start: 11-06-2023 Patient discharge [facility] Patient Education ED Foot Contus ion ED Foot Sprain [facility] Work Phone: Patient referral [facility] Work Phone: Immunizations Immunization Date Immunization Notes Care Provider Fa roger 06-17-2018 tetanus toxoid, redu sabino diphtheria toxoid, and acellular pertussis vaccine, adsorbed [facility] 05-20-2016 influenza, injectabl e, quadrivalent, preservative free [facility] 05-20-2016 influenza, seasonal, injectable [facility] 07-06-2015 influenza, injectabl e, quadrivalent, preservative free [facility] 07-06-2015 influenza, seasonal, injectable [facility] 05-20-2014 influenza, injectabl e, quadrivalent, preservative free [facility] 05-20-2014 influenza, seasonal, injectable [facility] Payers Date Payer Category Payer Self-pay [id number] 2023 Unknown [id number] 2013 Unknown [id number] 1965 Unknown [id number] 1965 Unknown [id number] Unknown [id number] Unknown [id number] .16. [id number] Unknown [id number] 2.16. [id number] Unknown [id number] 2.16.8 40.1.760795.3.579.2.462 Unknown [id number] 2.16.8 40.1.607383.3.579.2.462 Unknown [id number] 2.16.8 40.1.392016.3.579.2.462 Unknown [id number] 2.16.8 40.1.832604.3.579.2.462 Unknown [id number] 2.16.8 40.1.672457.3.579.2.462 Unknown [id number] 2.16.8 40.1.466702.3.579.2.462 Unknown [id number] 2.16.8 40.1.828726.3.579.2.462 Unknown [id number] 2.16.8 40.1.878096.3.579.2.462 Unknown [id number] 2.16.8 40.1.658306.3.579.2.462 Unknown [id number] 2.16.8 40.1.795627.3.579.2.462 Unknown [id number] 2.16.8 40.1.765242.3.579.2.462 Unknown [id number] 2.16.8 40.1.603040.3.579.2.462 Unknown [id number] 2.16.8 40.1.299767.3.579.2.462 Unknown [id number] 2.16.8 40.1.078026.3.579.2.462 Social History Date Type Detail Facility Start: 10-18-2020 End: 11-02-2023 Tobacco smoking status NHIS Unknown if ever smoked [facility] Start: 10-15-2020 Spouse/ Signif icant Other [facility] Start: 10-15-2020 Cigarettes [facility] Start: 1965 Sex Assigned At Female [facility] Start: 11-19-2024 Tobacco smoking status NHIS Smokes tobacco daily (finding) [facility] NEGATED: Highlighted row [facility] Goals Date Patient Goal Desired Activity /State Mental Status Date Assessment Result Facility 11-06-2023 Cognitive function Light Pain [facility] Work Phone: Clinical Notes 04-11-2023 to 11-19-2024 Note Date & Type Note Facility 11-19-2024 Evaluation note Diagnosis Onset Date Resolution NIESHA (obstructive sleep apnea) chronic November 19, 2024 11:15am Overweight (BMI 25.0-29.9) chronic November 19, 2024 11:15am [facility] Work Phone: 1(718) [phone] [facility] [address] [facility] [address] [facility] [id number] Dept: [phone] MD Pamela Chauhan 59 y.o. female Patient presents with [...] of submandibular glands, clear salivary flow from Walton's ducts, no stones of Belkis's ducts Temporomandibular Joint: no crepitus with motion, [...] no enlargement, no tenderness, (more content not included)...[facility]03-18-2024 History and physical note Author Walker Garrett [facility] November 06, 2023 9:34am Note Date/Time November 06, 2023 7:5 8am [facility] Medical Records Department [address] [place] [address] History & Physical Exam 11/06/23 0755 MR#: [id number] Acct: [id number] Name: PAMELA RODRIGUEZ Rep #:[id number] : 1965 58 From: Walker Garrett MD PCP: Dr. Denise Renee MD Status:[facility] Location: [address] HPI - General General Date of Service: 11/06/23 Chief Complaint: Screening for intestinal cancer HPI Narrative PAMELA RODRIGUEZ, is a 58 F who presents for screening colonoscopy today. She presents via open access. She has a maternal grandmother and grandfather who had colon cancer. I have assisted her previously on September 05 with a colonoscopy and a benign polyp was removed. She has had an opportunity to ask and have questions answered. She denies any acute symptoms. PFSH Medical History Alcohol use Arthritis Depression Family hx of colon cancer History of echocardiogram History of IBS Injury of head and neck Irritable bowel syndrome with diarrhea Lateral epicondylitis Low iron Menorrhagia Myalgia Myositis Smoker Home Medications ferrous sulfate 325 mg (65 mg iron) tablet 325 mg PO QHS 01/26/15 [History Last Taken 10/06/18] folic acid 800 mcg tablet 1.6 mg PO QHS 01/26/15 [History Last Taken 10/06/18] multivitamin with folic acid 400 mcg tablet 1 tab PO DAILY 01/26/15 [History Last Taken 10/06/18] ascorbic acid (vitamin C) 500 mg tablet 500 mg PO QHS 09/04/17 [History Last Taken 10/06/18] cholecalciferol (vitamin D3) 50 mcg (2,000 unit) capsule 2,000 unit PO QHS 09/04/17 [History Last Taken 10/06/18] alprazolam 0.5 mg tablet 0.5 mg PO QHS PRN PRN Anxiety 08/17/23 [History Last Taken Unknown] citalopram 20 mg tablet 40 mg PO QHS 08/17/23 [History Last Taken Unknown] lactobacillus combination no.4 3 billion cell capsule (Probiotic) 3,000 mmu cells PO DAILY 08/17/23 [History Last Taken Unknown] loperamide 2 mg capsule (Imodium A-D) 2 mg PO Q8H PRN loose stool 08/17/23 [History Last Taken Unknown] mecobalamin (vitamin B12) 1,000 mcg chewable tablet 1,000 mcg PO DAILY 08/17/23 [History Last Taken Unknown] pramipexole 0.125 mg tablet 0.125 mg PO QHS 08/17/23 [History Last Taken Unknown] psyllium husk (with sugar) 3.4 gram oral powder packet (Metamucil (with sugar)) 1 tbsp PO DAILY 08/17/23 [History Last Taken Unknown] melatonin 5 mg capsule 5 mg PO QHS 11/02/23 [History Last Taken Unknown] zinc 50 mg capsule 50 mg PO DAILY 11/02/23 [History Last Taken Unknown] Allergy/AdvReac Type Severity Reaction Status Date / Time No Known Allergies Allergy Verified 11/02/23 15:37 Family History (Updated 08/17/23 @ 12:37 by Ellyn Hooks) Mother Hypertension Grandfather Colon cancer Grandmother Colon cancer Surgical History Hx of colonoscopy with polypectomy S/P adenoidectomy S/P D&C (status post dilation and curettage) S/P tonsillectomy Status post tubal ligation Social History Smoking Status: Current every day smoker tobacco type: e-cigarettes alcohol intake: current alcohol intake frequency: a few times a month substance use type: does not use what type of physical activity do you participate in: none frequency: does not exercise seatbelt use: always ROS Constitutional Constitutional: Reports systems reviewed and no addt'l complaints, except as documented Cardiovascular Cardiovascular: Denies chest pain Respiratory/Chest Respiratory/Chest: Denies shortness of breath at rest Gastrointestinal Gastrointestinal: Denies abdominal pain, change in bowel habits, hematochezia ormelena Physical Exam Const alert, oriented x3 and no apparent distress General Appearance: cooperative and comfortable Eyes General Eye: normal appearance of both eyes Neck General: normal visual inspection Chest inspection of chest normal Resp Effort and Inspection: able to speak in complete sentences and symmetric chest movement Auscultation: clear to auscultation bilaterally Cardio regular rate and regular rhythm GI soft to palpation, non-tender and non-distended Extremity no calf tenderness Neuro oriented x3 Psych thought process normal Assessment & Plan Assessment/Plan (1) Encounter for screening for malignant neoplasm of colon: PLAN: 58-year-old female presents for screening colonoscopy today. She is awareof the technique, benefit, risk, alternatives. She is had an opportunity to askand have questions answered. She presents via open access. We will proceed as noted. Walker Garrett M.D., F.A.C.S. 11/06/23 0934 <Electronically signed by Walker Garrett MD> Cosigner Signature (if applicable): CC: Dr. Denise Renee MD; Dr. Walker Garrett MD~ Signed [facility] Work Phone: 1(443) 929-663203-18-2024 Procedure [facility] 11-06-2023 Procedure [facility]08-22-2023 Discharge summary Author Sandra Kincaid [facility] April 11, 2023 12:49pm Note Date/Time April 11, 2023 12 :49[facility] [address] [place] [address] / REHABILITATION SERVICES DISCHARGE SUMMARY MR#: [id number] Acct: [id number] Name: PAMELA RODRIGUEZ Rep #: [id number] : 1965 58 From: Sandra Leavitt Referring Dr.: COLTON Leone Status: REG RCR Insurance: [employer]/[facility] SELF PAY INSURANCE Discharge Summary D/C summary: It has been my pleasure to treat PAMELA RODRIGUEZ referred by Geovany Leone PA-C, with the diagnosis of Left Ankle/Foot Pain for a total of 7 visit(s). Discharge Date: 04/11/23 Please see the following information for a summary of their discharge status. Subjective Subjective: Pt has had a big improvement. She still has to walk on the lateral side of her foot but starting to get it flatter. Somedays she is better and some days not so much. Some sx change cause she is baby it. She gets a cortizone shot on . Dr Rush is doing her surgery. Orthotics do helpand so does not going barefoot. She feels comfortable doing her exs at home. Pain L foot: Pain Intensity (Out of 10): 2 Overall Improvement % Improvement: 70 Objective Objective/Function: SLS: on the L for 5 seconds and then has increase snapping Gait: Walks with decrease stance time on the L LE and decrease heel and toe gait pattern. Goals Goal 1:: Patient will be I with HEP and progression Goal Progress: Goal Met Goal 2:: Patient will SLS for 30 sec without LOB Goal Progress: Not Progressing Goal 3:: Patient will ambulate >300 feet with a normalized gait pattern Goal Progress: Progressing Goal 4:: Patient will report 80% improvement Goal Progress: Progressing Plan Plan: Modalities of US and Manual to Plantar Fascia- Proprioception and Strength/Stabilization to ankle D/C Information Discharge Comments: DC PT to HEP d/c sentence: If there are questions or concerns regarding this patient's physical therapy, please feel free to call me at [phone]. Thank you for the referral of thispatient. Sincerely, Sandra Kincaid, MPT Balance/Gait/Functional tests Balance/Special Test Scores Lower Extremity Functional Score: 44 <Electronically signed by Sandra Kincaid MPT> 04/11/23 1249 CC: COLTON Leone; Dr. Denise Renee MD ~ Signed [facility] Work Phone: Evaluation noteNo assessment information available [facility] Work Phone: Evaluation note* Diagnosis Onset Date Resolution Status Strain of right ankle and foot acute [facility] Work Phone: Evaluation note* Diagnosis Onset Date Resolution Status Encounter for screening for malignant neoplasm of colo n acute [facility] Work Phone: evaluation note* Diagnosis Onset Date Resolution Status Encounter for screening for malignant neoplasm of colo n acute Abdominal pain acute [facility] Work Phone: Reason for referral (narrative)[facility]: Summary Purpose Family History No Family History Records Found Relationship Condition Age at Onset Recorded Date/T miguel angel mother Hypertension Unknown Relationship Condition Age at Onset Recorded Date/T miguel angel mother Hypertension Unknown grandfather Malignant neoplasm of colon Unknown grandmother Malignant neoplasm of colon Unknown Advance Directives No Advanced Directives Records Found Advance Directive Response Recorded Date/ Time Advance Directives No March 30, 2015 1:30pm Living Will No October 18 1:27pm Power of [employer] Developer No October 18, 2020 1:27pm Advance Directive Response Recorded Date/ Time Advance Directives No March 30, 2015 1:30pm Living Will No February 18, 2023 1 1:02am Power of [employer] Developer No February 18, 2023 11:02am Advance Directive Response Recorded Date/ Time Advance Directives No March 30, 2015 12:30pm Living Will No February 18, 2023 1 0:02am Power of [employer] No February 18, 2023 10:02am Advance Directive Response Recorded Date/ Time Advance Directives No March 30, 2015 1:30pm Living Will No November 02, 2023 3:40pm Power of [employer] Developer No November 01 3:40pm Advance Directive Response Recorded Date/ Time Advance Directives No September 2:47pm Chief Complaint and Reason for Visit Chief Complaint SCREENING Chief Complaint R FOOT/LEG PAIN R FOOT PAIN COVID TEST/ [facility] SCREEN LUNG CANCER Reason for Visit Strain of right ankl e and foot Chief Complaint lower ext Chief Complaint lower ext LEFT LOWER EXT SWELLING SPRAIN OF LEFT FOOT L FOOT SPRAIN RX HERE Chief Complaint SPRAIN OF LEFT FOOT L FOOT SPRAIN RX HERE SCREENING Chief Complaint SCREENING Amb Documentation Reason for Visit Encounter for screen ing for malignant neoplasm of colon Chief Complaint Amb Documentation f/u abdominal pain EORDER Reason for Visit Encounter for screen ing for malignant neoplasm of colon Abdominal pain Chief Complaint Admit Date 5 wk f/u November 19, 2024 11:1 5am 3 M FU February 26, 2025 10:39 am Reason for Visit Admit Date NIESHA (obstructive sleep apnea) November 19, 2024 11:15am Overweight (BMI 25.0-29.9) November 19 11:15am Additional Source Comments INFORMATION SOURCE (unrecogn ized section and content) DATE CREATED AUTHOR 04/03/2018 [facility] DATE CREATED AUTHOR AUTHOR'S ORGANIZ ATION 03/28/2024 [facility] DATE CREATED AUTHOR AUTHOR'S ORGANIZ ATION 05/14/2025 [facility] Goals (unrecognized section and content) Goals may be documented in a n alternate sectionGoals may be documented in an alternate sectionGoals may be documented in an alternate sectionGoals may be documented in an alternate sectionGoals may be documented in an alternate sectionGoals may be documented in an alternate section Care Teams (unrecognized sec tion and content) Team Status: Active Member Role Status Dates Dr. Denise Renee MD Family Provider Active Dr. Denise Renee MD Primary Care Provider Active Team Status: Active Member Role Status Dates Dr. Denise Renee MD Primary Care Provider Active Dr. Walker Mccann MD Attending Provider Active Team Status: Inactive Member Role Status Dates Dr. Denise Renee MD Primary Care Provider Active Dr. Daryl Pollard DO Emergency Provider Active Team Status: Active Member Role Status Dates Dr. Denise Renee MD Primary Care Provider Active Dr. Walker Garrett MD Attending Provider Active Geovany STALEY, PA-C Referring Provider Active Team Status: Inactive Member Role Status Dates Dr. Denise Renee MD Primary Care Provider Active Geovany STALEY PA-C Attending Provider, Referring Pr ovider Active Team Status: Inactive Member Role Status Dates Dr. Denise Renee MD Primary Care Provider Active Dr. Daryl Pollard DO Attending Provider, Emergency Pro vider Active Team Status: Active Member Role Status Dates Dr. Denise Renee MD Primary Care Provider Active Health Risk Assessment Attending Provider Active Team Status: Inactive Member Role Status Dates Dr. Denise Renee MD Primary Care Provider Active Dr. Héctor Llanos MD Attending Provider Active Team Status: Inactive Member Role Status Dates Dr. Denise Renee MD Primary Care Prov ider, Attending Provider, Referring Provider Active Team Status: Active Member Role Status Dates Dr. Denise Renee MD Primary Care Provider Active Ellyn Hooks Attending Provider Active Team Status: Active Member Role Status Dates Dr. Denise Renee MD Primary Care Provider, Referrin g Provider Active Dr. Walker Garrett MD Attending Provider, Other Prov ider Active Team Status: Inactive Member Role Status Dates Dr. Densie Renee MD Primary Care Provider, Referrin g Provider Active Dr. Walker Garrett MD Attending Provider Active Team Status: Inactive Member Role Status Dates Dr. Denise Renee MD Primary Care Provider, Referrin g Provider Active Shawanda STALEY PA-C Attending Provider Active Team Status: Inactive Member Role Status Dates Dr. Denise Renee MD Primary Care Provider Active Shawanda STALEY PA-C Attending Provider, Referring Provider Active Team Status: Inactive Member Role/Relationship Status Dates MATHEW Bee NPC Attending Provider Active Start: November 19, 2024 End: November 19, 2024 Team Status: Inactive Member Role/Relationship Status Dates CRISTINA Bee NP Attending Provider Active Start: February 26, 2025 End: February 26, 2025 FOR RECORDS PERTAINING TO PATIENTS WHO ARE [...] BE BASED ON THE PRIMARY CLINICAL RECORDS. [facility] provides no warranty or guarantee of the accuracy or completeness of information in this document.
--- OUTSIDE RECORDS SUMMARY | 2025-05-16 19:51 | XMS RPT_ITS | CCD ---
Author Organization [facility] Care Team Providers Care Truck Bench Mechanic Name Role Phone Dr. Denise Renee Primary Care Provider Dr. Denise Renee Referring Provider DARREN Alcantara Attending Provider [phone] DARREN Inman Attending Provider Dr. Denise Renee [...] Care Unavailable Harriet AYALA-CKimberly Attending Provider Harriet ANALYTICS LEADER, Kimberly Attending Unavailable Jolliff, Denise S Referring Unavailable Larios ANALYTICS LEADER, Kimberly Attending Unavailable Jolliff, Denise S Referring Unavailable Jolliff, Denise S Primary Care Unavailable Larios ANALYTICS LEADER, Kimberly Attending Unavailable Jolliff, Denise S Referring Unavailable Antonieta Galloway NP Attending Unavailable Jolliff, Denise S Referring Unavailable Jolliff, Denise S Primary Care Unavailable Larios ANALYTICS LEADER, Kimberly Attending Unavailable Jolliff, Denise S Primary Care Unavailable Larios ANALYTICS LEADER, Kimberly Attending Unavailable Harriet ANALYTICS LEADER, Kimberly Referring Unavailable Jolliff, Denise S Attending Unavailable Jolliff, Denise S Primary Care Unavailable Care Physician, No Primary Primary Care Unava ilable Assessment, Health Risk Attending Unavaila ble Assessment, Health Risk Referring Unavaila ble Care Physician, No Primary Primary Care Unava ilable Harriet ANALYTICS LEADER, Kimberly Referring Unavailable Harriet ANALYTICS LEADER, Kimberly Attending Unavailable Jolliff, Denise S Referring Unavailable Jolliff, Denise S Primary Care Unavailable Jolliff, Denise S Attending Unavailable Jolliff, Denise S Attending Unavailable Jolliff, Denise S Referring Unavailable Jolliff, Denise S Primary Care Unavailable Jolliff, Denise S Attending Unavailable Jolliff, Denise S Referring Unavailable Jolliff, Denise S Primary Care Unavailable Ursula Herzog Referring Unavailable Jolliff, Denise S Primary Care Unavailable Ursula Herzog Attending Unavailable Jolliff, Denise S Primary Care Unavailable Harriet ANALYTICS LEADER, Kimberly Attending Unavailable Jolliff, Denise S Attending Unavailable Jolliff, Denise S Referring Unavailable Jolliff, Denise S Primary Care Unavailable Harriet ANALYTICS LEADER, Kimberly Attending Unavailable Medications Current Medications Medication [...] AT BEDTIME January 25, 2015 11:00pm Ipratropium [place] 42 mcg (0.06 %) spray,non-aerosol (1 source) [...] a progress report. Patient will bring in [facility] paperwork for work as she was [...] Absolute Lymph 2.32 X10 3/uL Normal 0.83-4.51 [facility] Comment on above: Performed By: #### L 500.2900, L100.0200, L400.0100 #### [facility] Laboratory [address] [place], [address] Absolute Neut 4.1 X10 3/uL Normal 2.0-7.7 [facility] Comment on above: Performed By: #### L 500.2900, L100.0200, L400.0100 #### [facility] [address] [place], [address] Basophils/100 WBC (Bld) 0.7 % Normal 0-1 [facility] Comment on above: Performed By: #### L 500.2900, L100.0200, L400.0100 #### [facility] [address] [place], [address] Eosinophils/100 WBC (Bld) 3.9 % Normal 0-5 [facility] Comment on above: Performed By: #### L 500.2900, L100.0200, L400.0100 #### [facility] [address] [place], [address] Erythrocyte distribution width (RBC) [Ratio] 13.0 % Normal 11.6-14.6 [facility] Comment on above: Performed By: #### L 500.2900, L100.0200, L400.0100 #### [facility] [address] [place], [address] Hematocrit (Bld) [Volume fraction] 42.6 % Normal 37-47 [facility] Comment on above: Performed By: #### L 500.2900, L100.0200, L400.0100 #### [facility] [address] [place], [address] Hemoglobin (Bld) [Mass/Vol] 13.9 g/dL Normal 12.0-15.0 [facility] Comment on above: Performed By: #### L 500.2900, L100.0200, L400.0100 #### [facility] [address] [place], [address] Lymphocytes/100 WBC (Bld) 31.4 % Normal 19-41 [facility] Comment on above: Performed By: #### L 500.2900, L100.0200, L400.0100 #### [facility] [address] [place], [address] MCH (RBC) [Entitic mass] 31.0 pg Normal 27.0-32.0 [facility] Comment on above: Performed By: #### L 500.2900, L100.0200, L400.0100 #### [facility] [address] [place], [address] MCHC (RBC) [Mass/Vol] 32.6 g/dL Normal 32-36 [facility] Comment on above: Performed By: #### L 500.2900, L100.0200, L400.0100 #### [facility] [address] [place], [address] MCV (RBC) [Entitic vol] 95.1 fL Normal 81-99 [facility] Comment on above: Performed By: #### L 500.2900, L100.0200, L400.0100 #### [facility] [address] [place], [address] Monocytes/100 WBC (Bld) 8.4 % Normal 0-10 [facility] Comment on above: Performed By: #### L 500.2900, L100.0200, L400.0100 #### [facility] [address] [place], [address] Neutrophils/100 WBC (Bld) 55.1 % Normal 47-70 [facility] Comment on above: Performed By: #### L 500.2900, L100.0200, L400.0100 #### [facility] [address] [place], [address] NRBC # 0.00 10 3/uL Normal 0-5 [facility] Comment on above: Performed By: #### L 500.2900, L100.0200, L400.0100 #### [facility] [address] [place], [address] Nucleated RBC (Bld) [#/Vol] 0 10*3/uL Normal 0-5 [facility] Comment on above: Performed By: #### L 500.2900, L100.0200, L400.0100 #### [facility] [address] [place], [address] Platelet mean volume (Bld) [Entitic vol] 10.9 fL Normal 6.2-12.0 [facility] Comment on above: Performed By: #### L 500.2900, L100.0200, L400.0100 #### [facility] [address] [place], [address] Platelets (Bld) [#/Vol] 248 10*3/uL Normal 150-450 [facility] Comment on above: Performed By: #### L 500.2900, L100.0200, L400.0100 #### [facility] [address] [place], [address] RBC (Bld) [#/Vol] 4.48 10*6/uL Normal 4.2-5.4 [facility] Comment on above: Performed By: #### L 500.2900, L100.0200, L400.0100 #### [facility] [address] [place], [address] RDW SD 45.1 fl High 35.1-43.9 [facility] Comment on above: Performed By: #### L 500.2900, L100.0200, L400.0100 #### [facility] [address] [place], [address] WBC (Bld) [#/Vol] 7.4 10*3/uL Normal 4.4-11.0 [facility] Comment on above: Performed By: #### L 500.2900, L100.0200, L400.0100 #### [facility] [address] [place], [address] Employee Profileon 5 CHOL:HDL 3.20 Normal [facility] Comment on above: Performed By: #### L 500.2900, L100.0200, L400.0100 #### [facility] [address] [place], [address] Cholesterol [Mass/Vol] 171 mg/dL Normal <=200 [facility] Comment on above: Result Comment: Chol esterol level, Desirable <200 mg/dL Borderline high cholesterol 200-239 mg/dL High cholesterol >=240 mg/dL Recommendations of the NCEP Adult Treatment Panel for the following risk-cutoff thresholds for the [place] population. Performed By: #### L 500.2900, L100.0200, L400.0100 #### [facility] [address] [place], [address] Cholesterol in HDL [Mass/Vol] 54 mg/dL Normal [facility] Comment on above: Result Comment: Zohra onal Cholesterol Education Program (NCEP) guidelines: <40 mg/dL: Low HDL-cholesterol (major risk factor for CHD) >= 60 mg/dL: High HDL-cholesterol (negative risk factor for CHD) HDL-cholesterol is affected by a number of factors, e.g. smoking, exercise, hormones, sex and age. Performed By: #### L 500.2900, L100.0200, L400.0100 #### [facility] [address] [place], [address] Cholesterol in LDL [Mass/Vol] 85 mg/dL Normal [facility] Comment on above: Result Comment: Bord qmwbmh=781-671 mg/dL Higher Ihcf=865 mg/dL or greater Friedwald Equation for LDL-C Performed By: #### L 500.2900, L100.0200, L400.0100 #### [facility] [address] [place], [address] Cholesterol in VLDL [Mass/Vol] 33 mg/dL Normal 5-40 [facility] Comment on above: Performed By: #### L 500.2900, L100.0200, L400.0100 #### [facility] [address] [place], [address] LDH 171 U/L Normal 84-246 [facility] Comment on above: Performed By: #### L 500.2900, L100.0200, L400.0100 #### [facility] [address] [place], [address] Phosphate [Mass/Vol] 2.8 mg/dL Normal 2.7-4.5 [facility] Comment on above: Performed By: #### L 500.2900, L100.0200, L400.0100 #### [facility] [address] [place], [address] Triglyceride [Mass/Vol] 165 mg/dL Normal [facility] Comment on above: Result Comment: The drugs N-Acetylcysteine and Metamizole may falsely depress this assay. Normal range: <150 mg/dL Borderline High: 150-199 mg/dL High: 200-499 mg/dL Very High: >500 mg/dL Performed By: #### L 500.2900, L100.0200, L400.0100 #### [facility] [address] [place], [address] URIC 5.1 mg/dL Normal 2.6-6.0 [facility] Comment on above: Result Comment: The drugs N-Acetylcysteine and Metamizole may falsely depress this assay. Performed By: #### L 500.2900, L100.0200, L400.0100 #### [facility] [address] [place], [address] Urinalysis, Employeeon 05-13 BILIRUBIN URINE Normal Negative [facility] Comment on above: Order Comment: Urine , Random Result Comment: JUST WANT BLOODWORK Performed By: #### L 500.2900, L100.0200, L400.0100 #### [facility] [address] [place], [address] Clarity (U) Normal Clear [facility] Comment on above: Order Comment: Urine , Random Result Comment: JUST WANT BLOODWORK Performed By: #### L 500.2900, L100.0200, L400.0100 #### [facility] [address] [place], [address] Color (U) Normal Yellow [facility] Comment on above: Order Comment: Urine , Random Result Comment: JUST WANT BLOODWORK Performed By: #### L 500.2900, L100.0200, L400.0100 #### [facility] [address] [place], [address] GLUCOSE, UR Normal Normal [facility] Comment on above: Order Comment: Urine , Random Result Comment: JUST WANT BLOODWORK Performed By: #### L 500.2900, L100.0200, L400.0100 #### [facility] [address] [place], [address] KETONE UR Normal Negative [facility] Comment on above: Order Comment: Urine , Random Result Comment: JUST WANT BLOODWORK Performed By: #### L 500.2900, L100.0200, L400.0100 #### [facility] [address] [place], [address] LEUK ESTERASE Normal Negative [facility] Comment on above: Order Comment: Urine , Random Result Comment: JUST WANT BLOODWORK Performed By: #### L 500.2900, L100.0200, L400.0100 #### [facility] [address] [place], [address] Nitrite Ql (U) Normal Negative [facility] Comment on above: Order Comment: Urine , Random Result Comment: JUST WANT BLOODWORK Performed By: #### L 500.2900, L100.0200, L400.0100 #### [facility] [address] [place], [address] OCCULT BLOOD-UR Normal Negative [facility] Comment on above: Order Comment: Urine , Random Result Comment: JUST WANT BLOODWORK Performed By: #### L 500.2900, L100.0200, L400.0100 #### [facility] [address] [place], [address] pH UR Normal 5.0 - 8.0 [facility] Comment on above: Order Comment: Urine , Random Result Comment: JUST WANT BLOODWORK Performed By: #### L 500.2900, L100.0200, L400.0100 #### [facility] [address] [place], [address] PROT DIPSTX Normal Negative [facility] Comment on above: Order Comment: Urine , Random Result Comment: JUST WANT BLOODWORK Performed By: #### L 500.2900, L100.0200, L400.0100 #### [facility] [address] [place], [address] SP.GR. DIPSTX Normal 1.002-1.030 [facility] Comment on above: Order Comment: Urine , Random Result Comment: JUST WANT BLOODWORK Performed By: #### L 500.2900, L100.0200, L400.0100 #### [facility] [address] [place], [address] UR Preservative Normal [facility] Comment on above: Order Comment: Urine , Random Result Comment: JUST WANT BLOODWORK Performed By: #### L 500.2900, L100.0200, L400.0100 #### [facility] [address] [place], [address] UROBILI Normal Normal [facility] Comment on above: Order Comment: Urine , Random Result Comment: JUST WANT BLOODWORK Performed By: #### L 500.2900, L100.0200, L400.0100 #### [facility] [address] [place], [address] Pulmonary Visit Reporton Pulmonary Visit Report [facility] [place] [address] [place] [address] OFFICE VISIT Date of Service: 02/26/25 MR#: [id number] Acct: [id number] Name: PAMELA RODRIGUEZ Rep #: [id number] : 1965 Provider: CRISTINA Larios Age/Sex: 60/F Location: [facility].PMW Status: Signed Assessment and Plan Assessment and [...] Additional Comments: This note was generated with [employer] dictation software. It may contain incorrect words, [...] M FU Chief Complaint: new pap therapy Radio Dispatcher Required: No DME Vendor: [employer] Accompanied by: [...] unit) ca (more content not included)... Normal [facility] Pulmonary Visit Reporton Pulmonary Visit Report [facility] Pulmonary Medicine of [address] [place] [address] OFFICE VISIT Date of Service: 11/19/24 MR#: [id number] Acct: [id number] Name: PAMELA RODRIGUEZ Rep #: [id number] : 1965 Provider: CRISTINA Larios Age/Sex: 59/F Location: [facility].PMW Status: Signed Assessment and Plan Assessment and [...] congestion. She is not currently on any xbdv-loz-dldxzif medications to control it. She is noticing [...] wk f/u Chief Complaint: new pap therapy Radio Dispatcher Required: No DME Vendor: [employer] Accompanied by: [...] mg PO (more content not included)... Normal [facility] Pulmonary Visit Reporton Pulmonary Visit Report [facility] [place] [address] [place] [address] OFFICE VISIT Date of Service: 09/24/24 MR#: [id number] Acct: [id number] Name: PAMELA RODRIGUEZ Rep #: [id number] : 1965 Provider: CRISTINA Larios Age/Sex: 59/F Location: [facility].PMW Status: Signed Assessment and Plan Assessment and Plan (1) NIESHA (obstructive sleep apnea): Status: Chronic Comment: AHI of 21.7 Plan: She is using and benefiting from Pap therapy, however, her AHI remains elevated. I spoke to the sleep quality assurance qa lab analyst and we reviewed the sleep titration study [...] loss. Plan Details Follow Up: 5 Weeks ([facility]) HPI 3 M FU Chief Complaint: new [...] air Intake Visit Reasons: 3 M FU Radio Dispatcher Required: No DME Vendor: [employer] Accompanied by: Is patient in pain?: No [...] PFSH Med (more content not included)... Normal [facility] Low Dose CT Lung Screeningon 07-15-[address] Lung Screening [facility] Imaging Services [address] [place], [place] [id number] Low Dose CT Lung Screening MR#: [id number] Acct: [id number] Name: PAMELA RODRIGUEZ Rep #: [id number] : 1965 F 59 From: Low Ramsey MD PCP: Dr. Denise Renee MD Status: REG CLI Study: Low Dose CT Lung Screening Date of Exam: 07/15 Exam# [id number] Ordering Dr: Denise Renee MD [id number] STUDY: LOW DOSE CT LUNG CANCER SCREENING [...] EST , CC: Dr. Denise Renee MD Tooth Cutter Clutch: Signed Normal [facility] Pulmonary Visit Reporton Pulmonary Visit Report [facility] [place] 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 She quit smoking 1 year ago. She was smoking 1/2 to 1 pack/day. She admits that she is now using e-cigarettes. She has never seen a lumber hacker. She has never had a pulmonary function [...] Sleep apnea Chief Complaint: f/u abdominal pain Radio Dispatcher Required: No Accompanied by: Allergies No Known [...] DAILY 08/17/23 (more content not included)... Normal [facility] Re-Evaluation - PT (1)on Re-Evaluation - PT (1) [facility] Physical Therapy [facility] [address] [place] [address]. [address] [place] [address] / REEVALUATION / MEDICARE RECERTIFICATION PHYSICAL THERAPY MR#: [id number] Acct: [id number] Name: PAMELA RODRIGUEZ Rep #: [id number] : 1965 59 From: Sony Peterson DPT Referring Dr.: DARREN Moya Status:REG RCR Insurance: Shareholder [employer]/[facility] SELF PAY INSURANCE Re-Evaluation Intro: DARREN Moya, [...] do not hesitate to contact me at [phone] by phone or if you have questions or concerns regarding this new plan of care! Sincerely, Sony Vargas Kristen, DPT 06/20/24 1452 CC: Dr. Denise Renee MD; DARREN Moya CLS Signed For Medicare only, by signing this I certify the plan of care. ____ Physicians Signature Date Normal [facility] Pelvic w/ Transvaginalon Pelvic w/ Transvaginal [facility] Imaging Services [address] [place], [place] [address] Pelvic w/ Transvaginal MR#: [id number] Acct: [id number] Name: PAMELA RODRIGUEZ Rep #: [id number] : 1965 F 59 From: Romero Byers PCP: Dr. Denise Renee MD Status: [facility] Study: Pelvic w/ Transvaginal Date of Exam: 06/14/24 Exam# [id number] Ordering Dr: Denise Renee MD [id number] STUDY: ULTRASOUND OF THE FEMALE PELVIS - [...] 21:44 EDT Reading Location ID and State: [facility] / [place] , Service support , CC: Dr. Denise Renee MD Tooth Cutter Clutch: Signed Normal [facility] SCRN MAMM (CAD)W/JERRELL BILATo n 06-12-2024 SCRN MAMM (CAD)W/JERRELL BILAT [facility] Imaging Services [address] [place] [id number] SCRN MAMM (CAD)W/JERRELL BILAT MR#: [id number] Acct: [id number] Name: PAMELA RODRIGUEZ Rep #: [id number] : 1965 F 59 From: Geovanni lane MD PCP: Dr. Denise Reene MD Status: REG [facility] Study: SCRN MAMM (CAD)W/JERRELL BILAT Date of Exam: 05/22 11/11 Exam# [id number] Ordering Dr: Denise Renee MD [id number] MAMMOGRAPHY - BILATERAL SCREENING REASON FOR EXAM: [...] delay biopsy of a clinically suspicious abnormality. [id number] Electronically Signed: Geovanni Arias MD at 10:27 EDT , CC: Dr. Denise Renee MD Tooth Cutter Clutch: Signed Normal [facility] PAP IG HPV HR APTIMAon 06-07 ADEQ Comment Normal . [facility] Comment on above: Order Comment: Speci men Comment: No. of containers..01 ThinPrep Vial Result Comment: Sati sfactory for evaluation. No endocervical component is identified. Performed By: #### L 7400.0377 ####[facility] [address] [place], [address] COMM . Normal . [facility] Comment on above: Order Comment: Speci men Comment: No. of containers..01 ThinPrep Vial Performed By: #### L 7400.0377 ####[facility] [address] [place], [address] COMMENT Comment Normal . [facility] Comment on above: Order Comment: Speci men Comment: No. of containers..01 ThinPrep Vial Result Comment: This liquid based ThinPrep(R) pap test was screened with the use of an image guided system. Performed By: #### L 7400.0377 ####[facility] [address] [place], [address] DIAG Comment Normal . [facility] Comment on above: Order Comment: Speci men Comment: No. of containers..01 ThinPrep Vial Result Comment: NEGA TIVE FOR INTRAEPITHELIAL LESION OR MALIGNANCY. Performed By: #### L 7400.0377 ####[facility] [address] [place], [place], [id number] HPV APTIMA, HR Negative Normal Negative [facility] Comment on above: Order Comment: Speci men Comment: No. of containers..01 ThinPrep Vial Result Comment: This nucleic acid amplification test detects fourteen high- risk HPV types (16,18,31,33,35,39,45,51,52,56,58,59,66,68) without differentiation. Performed at: - [address] [id number] Deputy Sheriff Building Guard: Nilsa Rojas MD, Phone: [phone] Performed at: =[address] [id number] Deputy Sheriff Building Guard: Nilsa Rojas MD, Phone: [phone] Performed By: #### L 7400.0377 ####[facility] [address] [place], [address] PAPSMR Comment Normal . [facility] Comment on above: Order Comment: Speci men [...] do occur. Performed By: #### L 7400.0377 ####[facility] [address] [place], [address] PERFORM Comment Normal . [facility] Comment on above: Order Comment: Speci men Comment: No. of containers..01 ThinPrep Vial Result Comment: [employer] Diagnostic Technician (ASCP) Performed By: #### L 7400.0377 ####[facility] [address] [place], [address] CBC, Employeeon 06-03-2024 Absolute Lymph 2.65 X10 3/uL Normal 0.83-4.51 [facility] Comment on above: Performed By: #### L 500.2900, L100.0200 #### [facility] [address] [place], [address] Absolute Neut 4.5 X10 3/uL Normal 2.0-7.7 [facility] Comment on above: Performed By: #### L 500.2900, L100.0200 #### [facility] [address] [place], [address] Basophils/100 WBC (Bld) 0.5 % Normal 0-1 [facility] Comment on above: Performed By: #### L 500.2900, L100.0200 #### [facility] [address] [place], [address] Eosinophils/100 WBC (Bld) 2.0 % Normal 0-5 [facility] Comment on above: Performed By: #### L 500.2900, L100.0200 #### [facility] [address] [place], [address] Erythrocyte distribution width (RBC) [Ratio] 13.0 % Normal 11.6-14.6 [facility] Comment on above: Performed By: #### L 500.2900, L100.0200 #### [facility] [address] [place], [address] Hematocrit (Bld) [Volume fraction] 46.5 % Normal 37-47 [facility] Comment on above: Performed By: #### L 500.2900, L100.0200 #### [facility] [address] [place], [address] Hemoglobin (Bld) [Mass/Vol] 14.7 g/dL Normal 12.0-15.0 [facility] Comment on above: Performed By: #### L 500.2900, L100.0200 #### [facility] [address] [place], [address] Lymphocytes/100 WBC (Bld) 33.2 % Normal 19-41 [facility] Comment on above: Performed By: #### L 500.2900, L100.0200 #### [facility] [address] [place], [address] MCH (RBC) [Entitic mass] 30.7 pg Normal 27.0-32.0 [facility] Comment on above: Performed By: #### L 500.2900, L100.0200 #### [facility] [address] [place], [address] MCHC (RBC) [Mass/Vol] 31.6 g/dL Low 32-36 [facility] Comment on above: Performed By: #### L 500.2900, L100.0200 #### [facility] [address] [place], [address] MCV (RBC) [Entitic vol] 97.1 fL Normal 81-99 [facility] Comment on above: Performed By: #### L 500.2900, L100.0200 #### [facility] [address] [place], [address] Monocytes/100 WBC (Bld) 7.0 % Normal 0-10 [facility] Comment on above: Performed By: #### L 500.2900, L100.0200 #### [facility] [address] [place], [address] Neutrophils/100 WBC (Bld) 56.9 % Normal 47-70 [facility] Comment on above: Performed By: #### L 500.2900, L100.0200 #### [facility] [address] [place], [address] NRBC # 0.00 10 3/uL Normal 0-5 [facility] Comment on above: Performed By: #### L 500.2900, L100.0200 #### [facility] [address] [place], [address] Nucleated RBC (Bld) [#/Vol] 0 10*3/uL Normal 0-5 [facility] Comment on above: Performed By: #### L 500.2900, L100.0200 #### [facility] [address] [place], [address] Platelet mean volume (Bld) [Entitic vol] 9.8 fL Normal 6.2-12.0 [facility] Comment on above: Performed By: #### L 500.2900, L100.0200 #### [facility] [address] [place], [address] Platelets (Bld) [#/Vol] 293 10*3/uL Normal 150-450 [facility] Comment on above: Performed By: #### L 500.2900, L100.0200 #### [facility] [address] [place], [address] RBC (Bld) [#/Vol] 4.79 10*6/uL Normal 4.2-5.4 [facility] Comment on above: Performed By: #### L 500.2900, L100.0200 #### [facility] [address] [place], [address] RDW SD 46.6 fl High 35.1-43.9 [facility] Comment on above: Performed By: #### L 500.2900, L100.0200 #### [facility] [address] [place], [address] WBC (Bld) [#/Vol] 8.0 10*3/uL Normal 4.4-11.0 [facility] Comment on above: Performed By: #### L 500.2900, L100.0200 #### [facility] [address] [place], [address] [employer] 4 Albumin [Mass/Vol] 3.6 g/dL Normal 3.2-5.0 [facility] Comment on above: Performed By: #### L 500.2900, L100.0200 #### [facility] [address] [place], [address] Albumin/Globulin [Mass ratio] 1.0 {ratio} Normal 0.9-2.4 [facility] Comment on above: Performed By: #### L 500.2900, L100.0200 #### [facility] [address] [place], [address] ALK P 93 U/L Normal 45-117 [facility] Comment on above: Performed By: #### L 500.2900, L100.0200 #### [facility] [address] [place], [address] ALT [Catalytic activity/Vol] 62 U/L High 13-56 [facility] Comment on above: Performed By: #### L 500.2900, L100.0200 #### [facility] [address] [place], [address] AST [Catalytic activity/Vol] 31 U/L Normal 15-37 [facility] Comment on above: Performed By: #### L 500.2900, L100.0200 #### [facility] [address] [place], [address] Bilirubin [Mass/Vol] 0.70 mg/dL Normal 0.20-1.00 [facility] Comment on above: Result Comment: For patients on eltrombopag therapy, use of Dimension [place] TBIL is not recommended. Performed By: #### L 500.2900, L100.0200 #### [facility] [address] [place], [address] Bilirubin.direct [Mass/Vol] 0.19 mg/dL Normal 0.00-0.30 [facility] Comment on above: Performed By: #### L 500.2900, L100.0200 #### [facility] [address] [place], [address] BUN/CRE 19.5 RATIO Normal 10-20 [facility] Comment on above: Performed By: #### L 500.2900, L100.0200 #### [facility] [address] [place], [address] CA,Total 9.4 mg/dL Normal 8.5-10.1 [facility] Comment on above: Performed By: #### L 500.2900, L100.0200 #### [facility] [address] [place], [address] Chloride [Moles/Vol] 106 mmol/L Normal 98-107 [facility] Comment on above: Performed By: #### L 500.2900, L100.0200 #### [facility] [address] [place], [address] CHOL:HDL 2.20 Normal [facility] Comment on above: Performed By: #### L 500.2900, L100.0200 #### [facility] [address] [place], [address] Cholesterol [Mass/Vol] 198 mg/dL Normal 200 [facility] Comment on above: Result Comment: <200 mg/dL Desirable 200-240 mg/dL Borderline >240 mg/dL High Risk Performed By: #### L 500.2900, L100.0200 #### [facility] [address] [place], [address] Cholesterol in HDL [Mass/Vol] 88 mg/dL Normal [facility] Comment on above: Result Comment: The drugs N-Acetylcysteine and Metamizole may falsely depress this assay. Reference Range HDL <40 mg/dL Low HDL Cholesterol HDL >or= 60 mg/dL High HDL Cholesterol Performed By: #### L 500.2900, L100.0200 #### [facility] [address] [place], [address] Cholesterol in LDL [Mass/Vol] 91 mg/dL Normal 0-130 [facility] Comment on above: Performed By: #### L 500.2900, L100.0200 #### [facility] [address] [place], [address] Cholesterol in VLDL [Mass/Vol] 19 mg/dL Normal 5-40 [facility] Comment on above: Performed By: #### L 500.2900, L100.0200 #### [facility] [address] [place], [address] CO2 [Moles/Vol] 31.0 mmol/L Normal 21.0-32.0 [facility] Comment on above: Performed By: #### L 500.2900, L100.0200 #### [facility] [address] [place], [address] Creatinine [Mass/Vol] 0.82 mg/dL Normal 0.55-1.02 [facility] Comment on above: Result Comment: The validity of the calculated GFR GFRAA in patients over 70 years has not been determined. Clinical correlation is essential. Performed By: #### L 500.2900, L100.0200 #### [facility] [address] [place], [address] EST GFR - AA 92 mL/min Normal >60 [facility] Comment on above: Result Comment: Afri can Citizen Of [place] GFR Calc Performed By: #### L 500.2900, L100.0200 #### [facility] [address] [place], [address] GAP 2 Low 5-15 [facility] Comment on above: Performed By: #### L 500.2900, L100.0200 #### [facility] [address] [place], [address] GFR/1.73 sq M.predicted among non-blacks MDRD (S/P/Bld) [Vol rate/Area] 76 mL/min/{1.73_m2} Normal >60 [facility] Comment on above: Result Comment: Non- GFR Calc Performed By: #### L 500.2900, L100.0200 #### [facility] [address] [place], [address] Globulin (S) [Mass/Vol] 3.5 g/dL Normal 2.2-4.2 [facility] Comment on above: Performed By: #### L 500.2900, L100.0200 #### [facility] [address] [place], [address] Glucose [Mass/Vol] 94 mg/dL Normal 74-106 [facility] Comment on above: Performed By: #### L 500.2900, L100.0200 #### [facility] [address] [place], [address] LDH 162 U/L Normal 84-246 [facility] Comment on above: Performed By: #### L 500.2900, L100.0200 #### [facility] [address] [place], [address] Phosphate [Mass/Vol] 3.2 mg/dL Normal 2.5-4.9 [facility] Comment on above: Performed By: #### L 500.2900, L100.0200 #### [facility] [address] [place], [address] Potassium [Moles/Vol] 4.4 mmol/L Normal 3.5-5.1 [facility] Comment on above: Performed By: #### L 500.2900, L100.0200 #### [facility] [address] [place], [address] Sodium [Moles/Vol] 139 mmol/L Normal 136-145 [facility] Comment on above: Performed By: #### L 500.2900, L100.0200 #### [facility] [address] [place], [address] T PROT 7.1 g/dL Normal 6.4-8.2 [facility] Comment on above: Performed By: #### L 500.2900, L100.0200 #### [facility] [address] [place], [address] Triglyceride [Mass/Vol] 93 mg/dL Normal [facility] Comment on above: Result Comment: The drugs N-Acetylcysteine and Metamizole may falsely depress this assay. Serum Triglycerides Reference Interval Normal <150 mg/dL Borderline high 150 - 199 mg/dL High 200 - 499 mg/dL Very High > or = 500 mg/dL Performed By: #### L 500.2900, L100.0200 #### [facility] [address] [place], [address] Urea nitrogen [Mass/Vol] 16 mg/dL Normal 7-18 [facility] Comment on above: Performed By: #### L 500.2900, L100.0200 #### [facility] [address] [place], [address] URIC 4.4 mg/dL Normal 2.6-6.0 [facility] Comment on above: Result Comment: The drugs N-Acetylcysteine and Metamizole may falsely depress this assay. Performed By: #### L 500.2900, L100.0200 #### [facility] [address] [place], [address] Inital Evaluation (1) - PTon 05-23-2024 Inital Evaluation (1) - PT [facility] Physical Therapy [facility] [address] [place] [address]. [address] [place] [address] / REHABILITATION SERVICES INITIAL EVALUATION MR#: [id number] Acct: [id number] Name: PAMELA RODRIGUEZ Rep #: [id number] : 1965 59 From: Sony Peterson DPT Referring Dr.: DARREN Moya Status: REG RCR [facility] SELF PAY INSURANCE Patient's Visit Information Visit [...] To improve (more content not included)... Normal [facility] Absolute lymphocyte countOrd ered By: Shawanda Watts on 11-08-2023 Lymphocytes Auto (Unsp spec) [#/Vol] 1.89 10*3/uL 0.83-4.51 [facility] Automated lymphocyte count a s percentage of total leukocytesOrdered By: Shawanda Watts on 11-08-2023 Lymphocytes/100 WBC Auto (Unsp spec) 25.3 % 19-41 [facility] Basophil percentageOrdered B y: Shawanda Watts on 11-08-2023 Basophils/100 WBC (Bld) 0.7 % 0-1 [facility] Chloride [Moles/Vol] 107 mmol/L 98-107 [facility] Eosinophils/100 WBC (Bld) 2.5 % 0-5 [facility] Glucose [Mass/Vol] 140 mg/dL 74-106 [facility] Comment on above: Fasting Glucose resu lt greater than or equal to 126 mg/dL suggests DIABETES MELLITUS per A.D.A. criteria. Hemoglobin (Bld) [Mass/Vol] 14.5 g/dL 12.0-15.0 [facility] Monocytes/100 WBC (Bld) 6.1 % 0-10 [facility] Neutrophils (Bld) [#/Vol] 4.9 10*3/uL 2.0-7.7 [facility] Neutrophils/100 WBC (Bld) 65.1 % 47-70 [facility] Potassium [Moles/Vol] 3.6 mmol/L 3.5-5.1 [facility] Sodium [Moles/Vol] 140 mmol/L 136-145 [facility] WBC (Bld) [#/Vol] 7.5 10*3/uL 4.4-11.0 [facility] Determination of erythrocyte mean corpuscular volume (MCV)Ordered By: Shawanda Watts on 11-08-2023 MCV (RBC) [Entitic vol] 94.7 fL 81-99 [facility] Erythrocyte distribution wid th ratioOrdered By: Shawanda Watts on 11-08-2023 Erythrocyte distribution width (RBC) [Ratio] 12.0 % 11.6-14.6 [facility] Erythrocyte distribution wid th standard deviationOrdered By: Shawanda Watts on 11-08-2023 Erythrocyte distribution width (RBC) [Entitic vol] 41.5 fL 35.1-43.9 [facility] Hematocrit Auto (Bld) [Volum e fraction]Ordered By: Shawanda Watts on 11-08-2023 Hematocrit (Bld) [Volume fraction] 44.3 % 37-47 [facility] Immature granulocytes/100 WB C Auto (Bld)Ordered By: Shawanda Watts on 11-08-2023 Immature granulocytes/100 WBC (Bld) 0.300 % 0.0-0.9 [facility] Comment on above: IG% - Immature Granu locytes (promyelocytes, myelocytes and metamyelocytes) > 1% indicates that a LEFT SHIFT is Present. Laboratory - Chemistry and C hemistry - challengeOrdered By: Shawanda Watts on 11-08-2023 CO2 [Moles/Vol] 28.0 mmol/L 21.0-32.0 [facility] Urea nitrogen/Creatinine [Mass ratio] 11.9 mg/mg 10- [facility] Laboratory - Hematology and Cell countsOrdered By: Shawanda Watts on 11-08-2023 MCH (RBC) [Entitic mass] 31.0 pg 27.0-32.0 [facility] MCHC (RBC) [Mass/Vol] 32.7 g/dL 32-36 [facility] Nucleated RBC/100 WBC (Bld) [Ratio] 0 % 0-5 [facility] Platelet mean volume (Bld) [Entitic vol] 10.6 fL 6.2-12.0 [facility] Platelets (Bld) [#/Vol] 256 10*3/uL 150-450 [facility] No Panel InformationOrdered By: Shawanda Watts on 11-08-2023 Estimated GFR (MDRD) Amer 90 mL/min >60 [facility] Comment on above: GFR Calc Estimated GFR (MDRD) Non-Af Amer 75 mL/min >60 [facility] Comment on above: Non- GFR Calc RBC Auto (Bld) [#/Vol]Ordere d By: Shawanda Watts on 11-08-2023 RBC (Bld) [#/Vol] 4.68 10*6/uL 4.2-5.4 [facility] Serum or plasma calcium janice urement (mass/volume)Ordered By: Shawanda Watts on 11-08-2023 Calcium [Mass/Vol] 9.2 mg/dL 8.5-10.1 [facility] Serum or plasma creatinine m easurement (mass/volume)Ordered By: Shawanda Watts on 11-08-2023 Creatinine [Mass/Vol] 0.84 mg/dL 0.55-1.02 [facility] Comment on above: The validity of the calculated GFR & GFRAA in patients over 70 years has not been determined. Clinical correlation is essential. Serum or plasma urea nitroge n measurement (mass/volume)Ordered By: Shawanda Watts on 11-08-2023 Urea nitrogen [Mass/Vol] 10 mg/dL 7-18 [facility] Thin prep Papanicolaou smear with manual screeningOrdered By: Shawanda Watts on 11-08-2023 Thin prep Papanicolaou smear with manual screening 5 5-15 [facility] COVID-19 virus antigen assay Ordered By: Walker Mccann on 06-22-2023 SARS-CoV-2 (COVID-19) Ag IA.rapid Ql (Resp) [facility] Absolute lymphocyte countOrd ered By: HEALTH ASSESSMENT on 06-08-2023 Lymphocytes Auto (Unsp spec) [#/Vol] 2.45 10*3/uL 0.83-4.51 [facility] Absolute reticulocyte countO rdered By: HEALTH ASSESSMENT on 06-08-2023 Reticulocytes (Bld) [#/Vol] 0.00 10*3/uL 0-5 [facility] Basophil percentageOrdered B y: HEALTH ASSESSMENT on 06-08-2023 Basophil percentage 2.9 mg/dL 2.5-4.9 [facility] Bilirubin [Mass/Vol] 0.50 mg/dL 0.20-1.00 [facility] Comment on above: For patients on eltr ombopag therapy, use of Dimension [place] TBIL is not recommended. Chloride [Moles/Vol] 107 mmol/L 98-107 [facility] Cholesterol [Mass/Vol] 174 mg/dL <200 [facility] Comment on above: <200 mg/dL Desirable 200-240 mg/dL Borderline >240 mg/dL High Risk Glucose [Mass/Vol] 88 mg/dL 74-106 [facility] LDH [Catalytic activity/Vol] 186 U/L 84-246 [facility] Neutrophils (Bld) [#/Vol] 4.9 10*3/uL 2.0-7.7 [facility] Potassium [Moles/Vol] 4.0 mmol/L 3.5-5.1 [facility] Protein [Mass/Vol] 7.3 g/dL 6.4-8.2 [facility] Sodium [Moles/Vol] 141 mmol/L 136-145 [facility] Triglyceride [Mass/Vol] 106 mg/dL <199 [facility] Comment on above: The drugs N-Acetylcy steine and Metamizole may falsely depress this assay.Serum Triglycerides Reference Interval Normal <150 mg/dL Borderline high 150 - 199 mg/dL High 200 - 499 mg/dL Very High > or = 500 mg/dL WBC (Bld) [#/Vol] 8.3 10*3/uL 4.4-11.0 [facility] Blood erythrocytes count (nu mber/volume)Ordered By: HEALTH ASSESSMENT on 06-08-2023 RBC (Bld) [#/Vol] 4.62 10*6/uL 4.2-5.4 [facility] Blood hemoglobin measurement (mass/volume)Ordered By: HEALTH ASSESSMENT on 06-08-2023 Hemoglobin (Bld) [Mass/Vol] 14.7 g/dL 12.0-15.0 [facility] Blood leukocytes count corre cted for nucleated erythrocytes (number/volume)Ordered By: HEALTH ASSESSMENT on 06-08-2023 WBC corrected for nucl RBC (Bld) [#/Vol] [employer]LYT[employer] LEADER [facility] Blood platelet mean volumeOr dered By: HEALTH ASSESSMENT on 06-08-2023 Platelet mean volume (Bld) [Entitic vol] 10.7 fL 6.2-12.0 [facility] Determination of erythrocyte mean corpuscular volume (MCV)Ordered By: HEALTH ASSESSMENT on 06-08-2023 MCV (RBC) [Entitic vol] 97.4 fL 81-99 [facility] Direct bilirubinOrdered By: HEALTH ASSESSMENT on 06-08-2023 Bilirubin.direct [Mass/Vol] 0.15 mg/dL 0.00-0.30 [facility] Hematocrit Auto (Bld) [Volum e fraction]Ordered By: HEALTH ASSESSMENT on 06-08-2023 Hematocrit (Bld) [Volume fraction] 45.0 % 37-47 [facility] Laboratory - Chemistry and C hemistry - challengeOrdered By: HEALTH ASSESSMENT on 06-08-2023 ALP [Catalytic activity/Vol] 98 U/L 45-117 [facility] ALT [Catalytic activity/Vol] 91 U/L 13-56 [facility] Cholesterol.total/Chol esterol in HDL [Mass ratio] 2.80 {ratio} [facility] CO2 [Moles/Vol] 27.0 mmol/L 21.0-32.0 [facility] Globulin (S) [Mass/Vol] 3.6 g/dL 2.2-4.2 [facility] Urea nitrogen/Creatinine [Mass ratio] 18.6 mg/mg 10-20 [facility] Laboratory - Hematology and Cell countsOrdered By: HEALTH ASSESSMENT on 06-08-2023 Erythrocyte distribution width (RBC) [Entitic vol] 44.2 fL 35.1-43.9 [facility] Erythrocyte distribution width (RBC) [Ratio] 12.3 % 11.6-14.6 [facility] MCH (RBC) [Entitic mass] 31.8 pg 27.0-32.0 [facility] Nucleated RBC/100 WBC (Bld) [Ratio] 0 % 0-5 [facility] MCHC Auto (RBC) [Mass/Vol]Or dered By: HEALTH ASSESSMENT on 06-08-2023 MCHC (RBC) [Mass/Vol] 32.7 g/dL 32-36 [facility] No Panel InformationOrdered By: HEALTH ASSESSMENT on 06-08-2023 Estimated Creatinine Clearance Calc [employer]LYT[employer] LEADER [facility] Estimated GFR (MDRD) Amer 102 mL/min >60 [facility] Comment on above: GFR Calc Estimated GFR (MDRD) Non-Af Amer 85 mL/min >60 [facility] Comment on above: Non- GFR Calc Immature Granulocyte % (Auto) [facility] Platelets bldOrdered By: [facility] ASSESSMENT on 06-08-2023 Platelets (Bld) [#/Vol] 257 10*3/uL 150-450 [facility] Review by pathologistOrdered By: HEALTH ASSESSMENT on 06-08-2023 Pathologist review Syed (Unsp spec) [Interp] ANALYTICS LEADER [facility] Segmented neutrophils/100 WB C Auto (Bld)Ordered By: HEALTH ASSESSMENT on 06-08-2023 Segmented neutrophils/100 WBC (Bld) 58.9 % 47-70 [facility] Serum or plasma albumin janice urement (mass/volume)Ordered By: HEALTH ASSESSMENT on 06-08-2023 Albumin [Mass/Vol] 3.7 g/dL 3.2-5.0 [facility] Serum or plasma albumin/glob ulin mass ratioOrdered By: HEALTH ASSESSMENT on 06-08-2023 Albumin/Globulin [Mass ratio] 1.0 {ratio} 0.9-2.4 [facility] Serum or plasma calcium janice urement (mass/volume)Ordered By: HEALTH ASSESSMENT on 06-08-2023 Calcium [Mass/Vol] 8.8 mg/dL 8.5-10.1 [facility] [facility] Serum or plasma cholesterol in HDL measurement (mass/volume)Ordered By: HEALTH ASSESSMENT on 06-08-2023 Cholesterol in HDL [Mass/Vol] 63 mg/dL >40 [facility] Comment on above: The drugs N-Acetylcy steine and Metamizole may falsely depress this assay. Reference Range HDL <40 mg/dL Low HDL Cholesterol HDL >or= 60 mg/dL High HDL Cholesterol Serum or plasma cholesterol in VLDL measurement (mass/volume)Ordered By: HEALTH ASSESSMENT on 06-08-2023 Cholesterol in VLDL [Mass/Vol] 21 mg/dL 5-40 [facility] Serum or plasma creatinine m easurement (mass/volume)Ordered By: HEALTH ASSESSMENT on 06-08-2023 Creatinine [Mass/Vol] 0.75 mg/dL 0.55-1.02 [facility] Comment on above: The validity of the calculated GFR & GFRAA in patients over 70 years has not been determined. Clinical correlation is essential. Serum or plasma low density lipoprotein (LDL) cholesterol measurement (mass/volume)Ordered By: HEALTH ASSESSMENT on 06-08-2023 Cholesterol in LDL [Mass/Vol] 90 mg/dL 0-130 [facility] Serum or plasma urea nitroge n measurement (mass/volume)Ordered By: HEALTH ASSESSMENT on 06-08-2023 Urea nitrogen [Mass/Vol] 14 mg/dL 7-18 [facility] Serum or plasma uric acid me asurement (mass/volume)Ordered By: HEALTH ASSESSMENT on 06-08-2023 Urate [Mass/Vol] 5.9 mg/dL 2.6-6.0 [facility] Comment on above: The drugs N-Acetylcy steine and Metamizole may falsely depress this assay. Thin prep Papanicolaou smear with manual screeningOrdered By: HEALTH ASSESSMENT on 06-08-2023 Thin prep Papanicolaou smear with manual screening 49 U/L 15-37 [facility] Thin prep Papanicolaou smear with manual screening 7 5-15 [facility] COVID-19 virus antigen assay Ordered By: Walker Mccann on 12-06-2022 SARS-CoV-2 (COVID-19) Ag IA.rapid Ql (Resp) [facility] Absolute lymphocyte counton 06-01-2022 Lymphocytes Auto (Unsp spec) [#/Vol] 2.30 10*3/uL 0.83-4.51 [facility] Work Phone: Absolute reticulocyte counto n 06-01-2022 Reticulocytes (Bld) [#/Vol] 0.00 10*3/uL 0-5 [facility] Work Phone: Basophil percentageon 2021 Basophil percentage 2.9 mg/dL 2.5-4.9 [facility] Work Phone: Bilirubin [Mass/Vol] 0.40 mg/dL 0.20-1.00 [facility] Work Phone: Comment on above: For patients on eltr ombopag therapy, use of Dimension [place] TBIL is not recommended. Chloride [Moles/Vol] 106 mmol/L 98-107 [facility] Work Phone: Cholesterol [Mass/Vol] 180 mg/dL <200 [facility] Work Phone: Comment on above: <200 mg/dL Desirable 200-240 mg/dL Borderline >240 mg/dL High Risk Glucose [Mass/Vol] 96 mg/dL 74-106 [facility] Work Phone: Neutrophils (Bld) [#/Vol] 4.2 10*3/uL 2.0-7.7 [facility] Work Phone: Potassium [Moles/Vol] 3.8 mmol/L 3.5-5.1 [facility] Work Phone: Protein [Mass/Vol] 7.2 g/dL 6.4-8.2 [facility] Work Phone: Sodium [Moles/Vol] 141 mmol/L 136-145 [facility] Work Phone: Triglyceride [Mass/Vol] 121 mg/dL <199 [facility] Work Phone: Comment on above: The drugs N-Acetylcy steine and Metamizole may falsely depress this assay.Serum Triglycerides Reference Interval Normal <150 mg/dL Borderline high 150 - 199 mg/dL High 200 - 499 mg/dL Very High > or = 500 mg/dL WBC (Bld) [#/Vol] 7.5 10*3/uL 4.4-11.0 [facility] Work Phone: Bilirubin Test strip Ql (U)o n 06-01-2022 Bilirubin Ql (U) Negative Negative [facility] Work Phone: Blood erythrocytes count (nu mber/volume)on 06-01-2022 RBC (Bld) [#/Vol] 4.20 10*6/uL 4.2-5.4 [facility] Work Phone: [phone] Blood hemoglobin measurement (mass/volume)on 06-01-2022 Hemoglobin (Bld) [Mass/Vol] 13.4 g/dL 12.0-15.0 [facility] Work Phone: Blood platelet mean volumeon 06-01-2022 Platelet mean volume (Bld) [Entitic vol] 10.8 fL 6.2-12.0 [facility] Work Phone: Determination of erythrocyte mean corpuscular volume (MCV)on 06-01-2022 MCV (RBC) [Entitic vol] 98.3 fL 81-99 [facility] Work Phone: Direct bilirubinon Bilirubin.direct [Mass/Vol] 0.11 mg/dL 0.00-0.30 [facility] Work Phone: [phone] Hematocrit Auto (Bld) [Volum e fraction]on 06-01-2022 Hematocrit (Bld) [Volume fraction] 41.3 % 37-47 [facility] Work Phone: [phone] Ketones Test strip Ql (U)on 06-01-2022 Ketones Ql (U) Negative Negative [facility] Work Phone: Laboratory - Chemistry and C hemistry - challengeon 06-01-2022 ALP [Catalytic activity/Vol] 112 U/L 45-117 [facility] Work Phone: [phone] ALT [Catalytic activity/Vol] 100 U/L 13-56 [facility] Work Phone: [phone] Cholesterol.total/Chol esterol in HDL [Mass ratio] 2.70 {ratio} [facility] Work Phone: [phone] CO2 [Moles/Vol] 30.0 mmol/L 21.0-32.0 [facility] Work Phone: [phone] Globulin (S) [Mass/Vol] 3.5 g/dL 2.2-4.2 [facility] Work Phone: [phone] Urea nitrogen/Creatinine [Mass ratio] 17.9 mg/mg 10-20 [facility] Work Phone: [phone] Laboratory - Hematology and Cell countson 06-01-2022 Erythrocyte distribution width (RBC) [Entitic vol] 44.3 fL 35.1-43.9 [facility] Work Phone: [phone] Erythrocyte distribution width (RBC) [Ratio] 12.3 % 11.6-14.6 [facility] Work Phone: [phone] MCH (RBC) [Entitic mass] 31.9 pg 27.0-32.0 [facility] Work Phone: [phone] Nucleated RBC/100 WBC (Bld) [Ratio] 0 % 0-5 [facility] Work Phone: [phone] MCHC Auto (RBC) [Mass/Vol]on 06-01-2022 MCHC (RBC) [Mass/Vol] 32.4 g/dL 32-36 [facility] Work Phone: [phone] Nitrite Test strip Ql (U)on 06-01-2022 Nitrite Ql (U) Negative Negative [facility] Work Phone: No Panel Informationon 06-01 Estimated GFR (MDRD) Amer 107 mL/min >60 [facility] Work Phone: [phone] Comment on above: GFR Calc Estimated GFR (MDRD) Non-Af Amer 88 mL/min >60 [facility] Work Phone: Comment on above: Non- GFR Calc Platelets bldon 06-01-2022 Platelets (Bld) [#/Vol] 261 10*3/uL 150-450 [facility] Work Phone: Protein Test strip Ql (U)on 06-01-2022 Protein Ql (U) Negative Negative [facility] Work Phone: [phone] Segmented neutrophils/100 WB C Auto (Bld)on 06-01-2022 Segmented neutrophils/100 WBC (Bld) 55.9 % 47-70 [facility] Work Phone: Serum or plasma albumin janice urement (mass/volume)on 06-01-2022 Albumin [Mass/Vol] 3.7 g/dL 3.2-5.0 [facility] Work Phone: Serum or plasma albumin/glob ulin mass ratioon 06-01-2022 Albumin/Globulin [Mass ratio] 1.1 {ratio} 0.9-2.4 [facility] Work Phone: Serum or plasma calcium janice urement (mass/volume)on 06-01-2022 Calcium [Mass/Vol] 8.8 mg/dL 8.5-10.1 [facility] Work Phone: Serum or plasma cholesterol in HDL measurement (mass/volume)on 06-01-2022 Cholesterol in HDL [Mass/Vol] 66 mg/dL >40 [facility] Work Phone: Comment on above: The drugs N-Acetylcy steine and Metamizole may falsely depress this assay. Reference Range HDL <40 mg/dL Low HDL Cholesterol HDL >or= 60 mg/dL High HDL Cholesterol Serum or plasma cholesterol in VLDL measurement (mass/volume)on 06-01-2022 Cholesterol in VLDL [Mass/Vol] 24 mg/dL 5-40 [facility] Work Phone: Serum or plasma creatinine m easurement (mass/volume)on 06-01-2022 Creatinine [Mass/Vol] 0.73 mg/dL 0.55-1.02 [facility] Work Phone: Comment on above: The validity of the calculated GFR & GFRAA in patients over 70 years has not been determined. Clinical correlation is essential. Serum or plasma low density lipoprotein (LDL) cholesterol measurement (mass/volume)on 06-01-2022 Cholesterol in LDL [Mass/Vol] 90 mg/dL 0-130 [facility] Work Phone: [phone] Serum or plasma urea nitroge n measurement (mass/volume)on 06-01-2022 Urea nitrogen [Mass/Vol] 13 mg/dL 7-18 [facility] Work Phone: [phone] Serum or plasma uric acid me asurement (mass/volume)on 06-01-2022 Urate [Mass/Vol] 3.4 mg/dL 2.6-6.0 [facility] Work Phone: Comment on above: The drugs N-Acetylcy steine and Metamizole may falsely depress this assay. Thin prep Papanicolaou smear with manual screeningon 06-01-2022 Thin prep Papanicolaou smear with manual screening 58 U/L 15-37 [facility] Work Phone: Thin prep Papanicolaou smear with manual screening 5 5-15 [facility] Work Phone: [phone] Thin prep Papanicolaou smear with manual screening 169 U/L 84-246 [facility] Work Phone: [phone] Urine blood detectionon 05-21 RBC Ql (U) Negative Negative [facility] Work Phone: [phone] Urine clarityon 06-01-2022 Clarity (U) Sl. Cloudy Clear [facility] Work Phone: [phone] Urine color determinationon 06-01-2022 Color (U) Yellow Yellow [facility] Work Phone: [phone] Urine glucose detectionon Glucose Ql (U) Normal mg/dl Normal [facility] Work Phone: [phone] Urine leukocyte esterase det ection by dipstickon 06-01-2022 Leukocyte esterase Test strip Ql (U) Negative Negative [facility] Work Phone: Urine pHon 06-01-2022 pH (U) 6.5 [pH] 5.0 - 8.0 [facility] Work Phone: Urine specific gravity measu rementon 06-01-2022 Specific gravity (U) [Rel density] 1.020 1.002-1.030 [facility] Work Phone: Urobilinogen Auto test strip Ql (U)on 06-01-2022 Urobilinogen Ql (U) Normal mg/dl Normal [facility] Work Phone: Laboratory - Microbiology an d Antimicrobial susceptibilityon 05-02-2022 SARS-CoV-2 (COVID-19) RNA KERRY+probe Ql (Unsp spec) Not detected [facility] Work Phone: No Panel Informationon 05-02 POC Nasal Swab Influenza A,B Not detected [facility] Work Phone: POC Nasal Swab RSV Not detected [facility] Work Phone: No Panel Informationon 08-26 SARS-CoV-2 Antigen (Rapid) [facility] Work Phone: CNOVon 03-26-2018 CNOV Office Visit (UCWSTR) PAMELA RODRIGUEZ ([id number]) 1965 FDate Time Provider Department03/26/18 2:45 PM [...] Discussed with patient concerning symptoms to go [facility] emergency department or follow up here. [...] daily for 10 days. Location: fingerAndiounter Number: [id number] Status:Closed by MARGAUX PIEDRA PA-C on 03/26/18 Normal [facility] PROGRESSon 03-26-2018 Protein mass conc HNO ID: [id number]: Margaux Will (Darren) AthyService: (none)Author Type: Physician [...] Pt agreeable with thisplan.Margaux Piedra PA-C Normal [facility] Vital Signs Date Time Vital Sign Value Performing Clinician Sunday monson 02-26-2025 08:01-0400 Body height 165.1 cm Kimberly Larios ANALYTICS LEADER-C Work Phone: [facility] 02-26-2025 08:01-0400 Body mass index (BMI) [Ratio] 28.3 kg/m2 Kimberly Larios ANALYTICS LEADER-C Work Phone: [facility] 02-26-2025 08:01-0400 Body temperature 97.3 [degF] Kimberly Larios ANALYTICS LEADER-C Work Phone: [facility] 02-26-2025 08:01-0400 Body weight 77.11 kg Kimberly Larios ANALYTICS LEADER-C Work Phone: [facility] 02-26-2025 08:01-0400 Diastolic blood pressure 90 mm[Hg] Kimberly Larios ANALYTICS LEADER-C Work Phone: [facility] 02-26-2025 08:01-0400 Heart rate 83 /min Kimberly Larios ANALYTICS LEADER-C Work Phone: [facility] 02-26-2025 08:01-0400 Respiratory rate 18 /min Kimberly Larios ANALYTICS LEADER-C Work Phone: [facility] 02-26-2025 08:01-0400 SaO2% (BldA) [Mass fraction] 95 % Kimberly Larios ANALYTICS LEADER-C Work Phone: [facility] 02-26-2025 08:01-0400 Systolic blood pressure 141 mm[Hg] Kimberly Larios ANALYTICS LEADER-C Work Phone: [facility] 11-19-2024 08:01-0400 Body mass index (BMI) [Ratio] 29.1 kg/m2 Kimberly Larios ANALYTICS LEADER-C Work Phone: [facility] 11-19-2024 08:01-0400 Body temperature 97.4 [degF] Kimberly Larios ANALYTICS LEADER-C Work Phone: [facility] 11-19-2024 08:01-0400 Body weight 79.37 kg Kimberly Larios ANALYTICS LEADER-C Work Phone: [facility] 11-19-2024 08:01-0400 Diastolic blood pressure 85 mm[Hg] Kimberly Larios ANALYTICS LEADER-C Work Phone: [facility] 11-19-2024 08:01-0400 Heart rate 76 /min Kimberly Larios ANALYTICS LEADER-C Work Phone: [facility] 11-19-2024 08:01-0400 Respiratory rate 18 /min Kimberly Larios ANALYTICS LEADER-C Work Phone: [facility] 11-19-2024 08:01-0400 SaO2% (BldA) [Mass fraction] 97 % Kimberly Larios ANALYTICS LEADER-C Work Phone: [facility] 11-19-2024 08:01-0400 Systolic blood pressure 126 mm[Hg] Kimberly Larios ANALYTICS LEADER-C Work Phone: [facility] 11-08-2023 13:52-0400 Body height 162.[address] Denise Renee Work Phone: [facility] 11-08-2023 13:52-0400 Body mass index (BMI) [Ratio] 27.9 kg/m2 Dr. Denise Renee Work Phone: [facility] 11-08-2023 13:52-0400 Body temperature 97.6 [degF] Dr. Denise Renee Work Phone: [facility] 11-08-2023 13:52-0400 Body weight 73.[address] Denise Renee Work Phone: [facility] 11-08-2023 13:52-0400 Diastolic blood pressure 90 mm[Hg] Dr. Denise Renee Work Phone: [facility] 11-08-2023 13:52-0400 Heart rate 89 /min Dr. Denise Renee Work Phone: [facility] 11-08-2023 13:52-0400 Respiratory rate 18 /min Dr. Denise Renee Work Phone: [facility] 11-08-2023 13:52-0400 SaO2% (BldA) [Mass fraction] 96 % Dr. Denise Renee Work Phone: [facility] 11-08-2023 13:52-0400 Systolic blood pressure 135 mm[Hg] Dr. Denise Renee Work Phone: [facility] 11-06-2023 10:14-0400 Body temperature 97.9 [degF] Dr. Denise Renee Work Phone: [phone] [place] [address] 11-06-2023 10:14-0400 Diastolic blood pressure 70 mm[Hg] Dr. Denise Renee Work Phone: [phone] [place] [address] 11-06-2023 10:14-0400 Heart rate 76 /min Dr. Denise Renee Work Phone: [phone] [place] [address] 11-06-2023 10:14-0400 Respiratory rate 18 /min Dr. Denise Renee Work Phone: [phone] [place] [address] 11-06-2023 10:14-0400 SaO2% (BldA) [Mass fraction] 96 % Dr. Denise Renee Work Phone: [facility] 11-06-2023 10:14-0400 Systolic blood pressure 104 mm[Hg] Dr. Denise Renee Work Phone: [facility] 11-06-2023 08:10-0400 Body height 165.[address] Denise Renee Work Phone: [facility] 11-06-2023 08:10-0400 Body mass index (BMI) [Ratio] 27.2 kg/m2 Dr. Denise Renee Work Phone: [phone] [place] [address] 11-06-2023 08:10-0400 Body weight 74.[address] Denise Renee Work Phone: [facility] 08-17-2023 12:56-0500 Body mass index (BMI) [Ratio] 26.1 kg/m2 Dr. Denise Renee Work Phone: [facility] 08-17-2023 12:56-0500 Body weight 71.[address] Denise Renee Work Phone: [facility] 02-18-2023 10:37-0400 Body height 165.1 cm [facility] 02-18-2023 10:37-0400 Body temperature 97.5 [degF] [facility] 02-18-2023 10:37-0400 Diastolic blood pressure 100 mm[Hg] [facility] 02-18-2023 10:37-0400 Heart rate 90 /min [facility] 02-18-2023 10:37-0400 Respiratory rate 18 /min [facility] 02-18-2023 10:37-0400 SaO2% (BldA) [Mass fraction] 98 % [facility] 02-18-2023 10:37-0400 Systolic blood pressure 185 mm[Hg] [facility] 03-31-2022 17:13-0400 Body temperature 98.2 [degF] Dr. Denise Renee Work Phone: [facility] Work Phone: 03-31-2022 17:13-0400 Diastolic blood pressure 72 mm[Hg] Dr. Denise Renee Work Phone: [facility] Work Phone: 03-31-2022 17:13-0400 Heart rate 90 /min Dr. Denise Renee Work Phone: [facility] Work Phone: 03-31-2022 17:13-0400 Respiratory rate 14 /min Dr. Denise Renee Work Phone: [facility] Work Phone: 03-31-2022 17:13-0400 SaO2% (BldA) [Mass fraction] 98 % Dr. Denise Renee Work Phone: [facility] Work Phone: 03-31-2022 17:13-0400 Systolic blood pressure 122 mm[Hg] Dr. Denise Renee Work Phone: [facility] Work Phone: Encounters Encounter Date Encounter Type Care Provider Facility Start: 05-16-2025 ambulatory No Primary Car e Physician Facility:[facility] Start: 05-13-2025 ambulatory No Primary Car e Physician Facility:[facility] Start: 02-26-2025 End: 02-26-2025 Patient encounter procedure Kimberly Larios ANALYTICS LEADER-C -[facility] Work Phone: Start: 02-26-2025 End: 02-26-2025 ambulatory Kimberly Larios ANALYTICS LEADER -[facility] Start: 11-26-2024 ambulatory Denise S Jolliff Facility: [facility] Start: 11-19-2024 End: 11-19-2024 Patient encounter procedure Kimberly Larios ANALYTICS LEADER-C -[facility] Work Phone: Start: 11-19-2024 End: 11-19-2024 ambulatory Kimberly Larios NP Facility:[facility] Start: 10-28-2024 End: 10-28-2024 ambulatory Denise S Jolliff Facility:[facility] Start: 09-24-2024 End: 09-24-2024 ambulatory Denise S Jolliff Facility:[facility] Start: 07-15-2024 End: 07-15-2024 ambulatory Denise S Jolliff Facility:[facility] Start: 07-12-2024 End: 07-12-2024 ambulatory Denise S Jolliff Facility:[facility] Start: 07-03-2024 End: 07-03-2024 ambulatory Denise S Jolliff Facility:[facility] Start: 06-24-2024 End: 06-24-2024 ambulatory Denise S Jolliff Facility:[facility] Start: 06-20-2024 End: 06-20-2024 ambulatory Ursula Herzog Facility:[facility] Start: 06-14-2024 End: 06-14-2024 ambulatory Denise S Jolliff Facility:[facility] Start: 06-12-2024 End: 06-12-2024 ambulatory Denise S Jolliff Facility:[facility] Start: 06-03-2024 ambulatory Denise S Jolliff Facility: [facility] Start: 06-03-2024 End: 06-03-2024 ambulatory Denise Renee Facility:[facility] Start: 03-26-2024 End: 03-26-2024 ambulatory MADY Palomino [facility] Start: 03-26-2024 End: 03-26-2024 ambulatory DENISE RENEE [facility] Start: 11-08-2023 End: 11-08-[address] Denise Renee Work Phone: [facility] Work Phone: Start: 11-08-2023 End: 11-08-[address] Denise Renee Work Phone: [facility] Work Phone: Start: 11-06-2023 Non-patient / Non-visit Dr. Dayanna Renee Work Phone: [facility] Start: 11-06-2023 End: 11-06-2023 Admission to same day surgery center Dr. Denise Renee Work Phone: [facility]-Endoscopy Work Phone: Start: 11-06-2023 End: 11-06-[address] Denise Renee Work Phone: [facility] Work Phone: Start: 08-17-2023 Non-patient / Non-visit Dr. Dayanna Renee Work Phone: [facility] Work Phone: Start: 07-11-2023 End: 07-11-2023 Patient encounter procedure [facility] Work Phone: Start: 06-22-2023 End: 07-20-2023 ambulatory [facility] Work Phone: Start: 06-22-2023 End: 07-20-2023 Discharged Recurring [facility] Start: 06-08-2023 Registered Ref[address] [facility] Start: 04-11-2023 End: 04-11-[address] Denise Renee Work Phone: [facility] Work Phone: Start: 04-11-2023 End: 04-11-[address] Denise Renee Work Phone: [facility]-Physical Therapy Work Phone: Start: 03-27-2023 End: 03-27-[address] Denise Renee Work Phone: [facility] Work Phone: Start: 03-15-2023 Non-patient / Non-visit Dr. Dayanna Renee Work Phone: [facility] Start: 03-15-2023 End: 03-15-[address] Denise Renee Work Phone: [facility]-Cardiovascular Services Work Phone: Start: 02-18-2023 End: 02-18-2023 Emergency department patient visit [facility]-Emergency Department Work Phone: Start: 12-06-2022 Registered Referred [facility] Start: 06-20-2022 End: 06-20-[address] Denise Renee Work Phone: [facility] Work Phone: Start: 06-20-2022 End: 06-20-[address] Denise Renee Work Phone: [facility] Start: 06-01-[address] [facility] mcgowan [facility] Start: 05-02-2022 End: 05-02-[address] Denise Renee Work Phone: [facility] Start: 04-01-2022 End: 04-01-[address] Denise Renee Work Phone: [facility]-Radiology, [facility] Start: 03-31-2022 End: 03-31-[address] Denise Renee Work Phone: [facility] Start: 11-25-2021 End: 11-25-2021 Patient encounter procedure [facility]-Outpatient Breast Imaging Start: 08-26-2021 Registered Referred [facility] Start: 03-26-2018 End: 03-27-2018 Patient encounter [facility] Procedures Date Procedure Procedure Detail [...] dx w/collj spec when pfrmd DIAGNOSTIC COLONOSCOPY [facility] [facility] Start: 11-06-2023 Patient discharge [facility] Colonoscopy [facility] Patient Education ED Foot Contus ion ED Foot Sprain [facility] Work Phone: Patient referral [facility] Work Phone: Immunizations Immunization Date Immunization Notes Care Provider Fa roger 06-17-2018 tetanus toxoid, redu sabino diphtheria toxoid, and acellular pertussis vaccine, adsorbed [facility] 05-20-2016 influenza, injectabl e, quadrivalent, preservative free [facility] 05-20-2016 influenza, seasonal, injectable [facility] 07-06-2015 influenza, injectabl e, quadrivalent, preservative free [facility] 07-06-2015 influenza, seasonal, injectable [facility] 05-20-2014 influenza, injectabl e, quadrivalent, preservative free [facility] 05-20-2014 influenza, seasonal, injectable [facility] Payers Date Payer Category Payer Self-pay [id number] 2023 Unknown [id number] 2013 Unknown [id number] 1965 Unknown [id number] 1965 Unknown [id number] .[id number] Unknown [id number] Unknown [id number] .16. 40.1.034769.3.579.2.462 Unknown [id number] 2.16. 40.1.142144.3.579.2.462 Unknown [id number] 2.16.8 40.1.478860.3.579.2.462 Unknown [id number] 2.16.8 40.1.868242.3.579.2.462 Unknown [id number] 2.16.8 40.1.596334.3.579.2.462 Unknown [id number] 2.16.8 40.1.827816.3.579.2.462 Unknown [id number] 2.16.8 40.1.059353.3.579.2.462 Unknown [id number] 2.16.8 40.1.787543.3.579.2.462 Unknown [id number] 2.16.8 40.1.109364.3.579.2.462 Unknown [id number] 2.16.8 40.1.595681.3.579.2.462 Unknown [id number] 2.16.8 40.1.787207.3.579.2.462 Unknown [id number] 2.16.8 40.1.590170.3.579.2.462 Unknown [id number] 2.16.8 40.1.193271.3.579.2.462 Unknown [id number] 2.16.8 40.1.147600.3.579.2.462 Unknown [id number] 2.16.8 40.1.372552.3.579.2.462 Unknown [id number] 2.16.8 40.1.830957.3.579.2.462 Social History Date Type Detail Facility Start: 10-18-2020 End: 11-02-2023 Tobacco smoking status NHIS Unknown if ever smoked [facility] Start: 10-15-2020 Spouse/ Signif icant Other [facility] Start: 10-15-2020 Cigarettes [facility] Start: 1965 Sex Assigned At Female [facility] Start: 11-19-2024 Tobacco smoking status NHIS Smokes tobacco daily (finding) [facility] NEGATED: Highlighted row [facility] Goals Date Patient Goal Desired Activity /State Mental Status Date Assessment Result Facility 11-06-2023 Cognitive function Light Pain [facility] Work Phone: Clinical Notes 04-11-2023 to 11-19-2024 Note Date & Type Note Facility 11-19-2024 Evaluation note Diagnosis Onset Date Resolution NIESHA (obstructive sleep apnea) chronic November 19, 2024 11:15am Overweight (BMI 25.0-29.9) chronic November 19, 2024 11:15am [facility] Work Phone: [phone]) [phone] Note[facility] [address] [facility] [address] [facility] [id number] Dept: [phone] MD Pamela Chauhan 59 y.o. female Patient [...] of submandibular glands, clear salivary flow from Tucker's ducts, no stones of Belkis's ducts Temporomandibular [...] no enlargement, no tenderness, (more content not included)...[facility]03-18-2024 History and physical note Author Walker Garrett [facility] November 06, 2023 9:34am Note Date/Time November 06, 2023 7:5 8am [facility] Medical Records Department [address] [place] [address] History & Physical Exam 11/06/23 0755 MR#: [id number] Acct: [id number] Name: PAMELA RODRIGUEZ Rep #:[id number] : 1965 58 From: Walker Garrett MD PCP: Dr. Denise Renee MD Status:[facility] Location: [address] HPI - General General Date of [...] Renee MD; Dr. Walker Garrett MD~ Signed [facility] Work Phone: [phone] 201-921203-18-2024 Procedure [facility] 11-06-2023 Procedure [facility]08-22-2023 Discharge summary Author Sandra Kincaid [facility] April 11, 2023 12:49pm Note Date/Time April 11, 2023 12 :49[facility] [address] [place] [address] / REHABILITATION SERVICES DISCHARGE SUMMARY MR#: [id number] Acct: [id number] Name: PAMELA RODRIGUEZ Rep #: [id number] : 1965 58 From: Sandra Leavitt Referring Dr.: COLTON Leone Status: REG RCR Insurance: Shareholder [employer]/[facility] SELF PAY INSURANCE Discharge Summary D/C summary: [...] please feel free to call me at [phone]. Thank you for the referral of thispatient. Sincerely, Sandra Kincaid, MPT Balance/Gait/Functional tests Balance/Special Test Scores Lower Extremity Functional Score: 44 <Electronically signed by Sandra Kincaid MPT> 04/11/23 1249 CC: COLTON Leone; Dr. Denise Renee MD ~ Signed [facility] Work Phone: Evaluation noteNo assessment information available [facility] Work Phone: Evaluation note* Diagnosis Onset Date Resolution Status Strain of right ankle and foot acute [facility] Work Phone: Evaluation note* Diagnosis Onset Date Resolution Status Encounter for screening for malignant neoplasm of colo n acute [facility] Work Phone: evaluation note* Diagnosis Onset Date Resolution Status Encounter for screening for malignant neoplasm of colo n acute Abdominal pain acute [facility] Work Phone: Reason for referral (narrative)No reason [facility] referral [facility] Summary Purpose Family History [...] Will No October 18 1:27pm Power of Certified Nursing Assistant No October 18, 2020 1:27pm Advance Directive Response Recorded Date/ Time Advance Directives No March 30, 2015 1:30pm Living Will No February 18, 2023 1 1:02am Power of Certified Nursing Assistant No February 18, 2023 11:02am Advance Directive Response Recorded Date/ Time Advance Directives No March 30, 2015 12:30pm Living Will No February 18, 2023 1 0:02am Power of Certified Nursing Assistant No February 18, 2023 10:02am Advance Directive Response Recorded Date/ Time Advance Directives No March 30, 2015 1:30pm Living Will No November 02, 2023 3:40pm Power of Certified Nursing Assistant No November 01 3:40pm Advance Directive Response Recorded Date/ Time Advance Directives No September 2:47pm Chief Complaint and Reason for Visit Chief Complaint SCREENING Chief Complaint R FOOT/LEG PAIN R FOOT PAIN COVID TEST/ [facility] [employer]EE [employer]S SCREEN LUNG CANCER Reason [...] section and content) DATE CREATED AUTHOR 04/03/2018 [facility] DATE CREATED AUTHOR AUTHOR'S ORGANIZ ATION 03/28/2024 [facility] DATE CREATED AUTHOR AUTHOR'S ORGANIZ ATION 05/14/2025 [facility] Goals (unrecognized section and content) Goals [...] BE BASED ON THE PRIMARY CLINICAL RECORDS. [facility]. provides no warranty or guarantee of the accuracy or completeness of information in this document.
== END | disposition home or self-care (01) ==
LOC: SL 19:49
PROVIDERS: Referring Provider Nurse Practitioner Acute Care; Visit Provider Nurse Practitioner Acute Care
DX: G47.33 Obstructive sleep apnea (adult) (pediatric) (principal)
CPT/HCPCS: 95811

== ENCOUNTER 2025-07-04 06:34 | Outpatient (CLI) | payer OTHER, SELFPAY ==
[2025-07-04 06:42] LABS: Mucous, Urine 0 SEEN /hpf (<or=2+); Red Blood Cells-Urine 0 SEEN /hpf (0-5)
[2025-07-04 07:05] LABS: Hematocrit 40.7 % (37-47); Hemoglobin 13.3 g/dL (12.0-15.0); Immature Granulocytes Count 0.020 X10^3/uL (0.0-0.0); Mean Corp Hgb Conc 32.7 g/dL (32-36); Mean Corpuscular Volume 96.7 fL (81-99); Mean Platelet Vol. 10.3 fl (6.2-12.0); NRBC Flagged by Analyzer 0 % (0-5); Platelet Count 264 K/mm3 (150-450); RBC Distribution Width CV 12.4 % (11.6-14.6); RBC Distribution Width SD 43.8 fl (35.1-43.9); Red Blood Count 4.21 M/mm3 (4.2-5.4); White Blood Count 8.2 K/mm3 (4.4-11.0)
[2025-07-04 08:14] LABS: Color, Urine Yellow (Yellow); Glucose, Dipstick Normal (Normal); Ketone-Dipstick Negative (Negative); Leukocyte Esterase-Dipstick Negative /ul (Negative); Nitrite-Dipstick Negative (Negative); Occult Blood-Urine Negative /ul (Negative); Protein-Dipstick 30 mg/dl (Negative); Specific Gravity, Urine 1.025 (1.002-1.030); Urine Bilirubin Dipstick Negative (Negative)
[2025-07-04 08:18] LABS: AST(SGOT) 44 U/L (<=31); Alanine Aminotransfer ALT/SGPT 77 U/L (<=34); Albumin, Serum 4.1 g/dL (3.5-5.0); Alkaline Phosphatase 88 U/L (35-104); Anion Gap 9 (5-15); BUN 13 mg/dL (4-19); BUN/Creat Ratio 16.8 RATIO (10-20); Calcium,Total 9.3 mg/dL (7.6-11.0); Carbon Dioxide 24.4 mmol/L (21.0-32.0); Chloride 106 mmol/L (98-108); Ferritin 623 ng/mL (22-378); Globulin 2.6 g/dL (2.2-4.2); Glucose 102 mg/dL (70-99); Iron 66 ug/dL (50-170); Iron Binding Capacity,Total 262 ug/dL (250-450); Iron Binding Capacity,Unsat 196 ug/dL (228-428); Magnesium 2.3 mg/dL (1.5-2.2); Potassium 4.0 mmol/L (3.3-5.1); Vitamin D,25 Hydroxy 32.4 ng/mL (30-100)
[2025-07-04 08:20] LABS: Squamous Epithelial Cells - UA 5-10 SEEN /hpf (5-10)
[2025-07-04 08:37] LABS: Cholesterol 165 mg/dL (<=200); Low Density Lipoprotein Calc. 93 mg/dL; Triglycerides 122 mg/dL; Very Low Density Lipoprotein 24 mg/dL (5-40); cholesterol:hdl ratio screen 3.29
[2025-07-07 16:09] LABS: Immunoglobulin A 118 mg/dL (87-352)
== END 2025-07-04 23:59 | disposition home or self-care (01) ==
LOC: LAB 06:35
PROVIDERS: PCP Family Medicine; Referring Provider Family Medicine; Visit Provider Family Medicine
DX: I10 Essential (primary) hypertension (principal); D50.9 Iron deficiency anemia, unspecified; R79.89 Other specified abnormal findings of blood chemistry; R73.09 Other abnormal glucose
CPT/HCPCS: 36415; 80053; 80061; 81001; 82306; 82728; 82784; 83036; 83516; 83540; 83550; 83735; 84443; 85025; 86255

== ENCOUNTER → 2025-07-09 | Outpatient (CLI) | payer OTHER, SELFPAY ==
[2025-07-12 09:08] LABS: ANTINUCLEAR ANTIBODIES DIRECT Negative (Negative); Alpha Antitrypsin Serum 147 mg/dL (101-187)
[2025-07-16 09:09] LABS: Anti-Smooth Muscle ABS 6 Units (0-19); Copper, Serum or Plasma 103 ug/dL (80-158)
== END | disposition home or self-care (01) ==
LOC: LAB 12:55
PROVIDERS: PCP Family Medicine; Referring Provider Family Medicine; Visit Provider Family Medicine
DX: R79.89 Other specified abnormal findings of blood chemistry (principal); R73.09 Other abnormal glucose
CPT/HCPCS: 36415; 81270; 82103; 82390; 82525; 83036; 83516; 86038

== ENCOUNTER → 2025-07-16 | Outpatient (CLI) | payer OTHER, SELFPAY ==
--- NOTE | 2025-07-16 12:45 | BI_ITS ---
EXAM: SCRN MAMM (CAD)W/JERRELL BILAT DATE: 07/16/2025 CLINICAL HISTORY: F, Age 60 y/o , SCREENING TECHNIQUE: Procedure Code: BISMWCADBTOM Modality: MG Procedure: SCRN MAMM (CAD)W/JERRELL BILAT COMPARISON: Prior exam(s) dated 06/12/2024 and 07/11/2023. FINDINGS: TISSUE DENSITY: The breasts are heterogeneously dense, which may obscure small masses. Bilateral Breast Mammographic Findings: There are no suspicious masses, suspicious clustered microcalcifications, architectural distortion, or secondary signs of malignancy identified in either breast. Stable nodular densities are seen in both breasts. Benign round microcalcifications are seen in both breasts. BI/SCRN MAMM (CAD)W/JERRELL BILAT IMPRESSION: Benign screening mammogram. OVERALL FINAL ASSESSMENT BI-RADS 2: BENIGN RECOMMENDATION: Routine annual follow-up in 1 Year Additional Recommendation none A letter with findings and recommendations will be mailed to the patient. Reading Location: [id number]
--- NOTE | 2025-07-16 13:11 | CT_ITS ---
PROCEDURE: LOW DOSE CT LUNG SCREENING 07/16/2025 REASON FOR EXAM: TOBACCO USE TECHNIQUE: Procedure Code: [id number] Modality: CT Procedure: LOW DOSE CT LUNG SCREENING Coronal and Sagittal reconstruction series were provided. One or more dose reduction techniques were used (e.g., Automated exposure control, adjustment of the mA and/or kV according to patient size, use of iterative reconstruction technique). REFERENCE LINK: [facility] Lung-RADS RADIATION DOSE SUMMARY: CTDlvol: 2.39 mGy DLP: 76.83 mGycm COMPARISON: 07/15/2024 FINDINGS: PULMONARY NODULES: (Only nodules >3mm are reported) Nodules described below are on series 2 unless otherwise specified. Pulmonary Nodules: No suspicious pulmonary nodules. Hardware:No hardware. Lymph Nodes:No mediastinal lymphadenopathy based on short axis size criteria. Heart and Vasculature:No cardiomegaly or pericardial effusion.The aorta and superior vena cava are within normal limits. Coronary Artery Calcifications: Absent Lungs and Airways: Bilateral dependent atelectasis. Mild centrilobular and paraseptal emphysematous changes. Pleura:No pleural effusion or pneumothorax. Upper Abdomen:Hepatic steatosis. Bones:Degenerative changes of the thoracic spine. The soft tissues are within normal limits. CT/Low Dose CT Lung Screening IMPRESSION: 1. No suspicious pulmonary nodules. 2. Mild emphysematous changes. Coronary artery calcification (CAC) is absent Lung-RADS Category: 1 NEGATIVE. RECOMMEND 12-MONTH SCREENING LDCT. Other Significant Findings: None. Reading Location: [id number]
== END | disposition home or self-care (01) ==
LOC: OPBI 12:39
PROVIDERS: PCP Family Medicine; Referring Provider Family Medicine; Visit Provider Family Medicine
DX: Z12.31 Encounter for screening mammogram for malignant neoplasm of breast (principal); Z12.2 Encounter for screening for malignant neoplasm of respiratory organs; F17.200 Nicotine dependence, unspecified, uncomplicated
CPT/HCPCS: 71271; 77063; 77067